=== PATIENT | female | born 1945 | race Caucasian/White ===

== ENCOUNTER 2019-05-25 11:12 | Emergency (ER) | payer MEDICARE, SELFPAY ==
[2019-05-25 11:13] VITALS: BP 159/96; PULSE 89; RESP 17; TEMP 36.6; O2SAT 96; BMI 20.2
[2019-05-25] MEDS: Diphth,Pertuss(Acell),Tet Vac 0.5 ML Vial IM (11:46)
[2019-05-25] MEDS: BACITRACIN 15 GM Tube 1 APPLIC TOPICAL (11:47)
--- NOTE | 2019-05-25 12:27 | ED.VISSUMM ---
- ER Visit Summary Date of Service: 05/25/19 Chief Complaint: Fall History of Present Illness: The patient is a 74 F who presents after a fall that occurred today. Patient states she was walking down steps when she slipped. Patient states she fell down approximately 8 steps. Patient denies any loss of consciousness. Patient admits to some pain over the left frontal area. Patient describes the pain is aching. Patient states the bleeding stopped it for several minutes. Patient denies any paresthesias or weakness. Patient denies any other injuries. Physical Examination: Vital signs are stable. Patient is afebrile. Patient is in no acute distress. Pupils are equal, round, and reactive to light bilaterally. Extraocular muscles are intact. Cranial nerves II through XII are intact. Strength is 5/5 bilateral knee upper and lower extremities. There are no sensory deficits noted. Heart was regular rate and rhythm. Lungs are clear and equal bilaterally. Abdomen is soft and nontender. Skin is warm and dry. There is a 3.5 cm full-thickness linear laceration over the left forehead. There is no active bleeding. There is no bony crepitance or step-off. Emergency Department Course and Treatment: Patient was given a tetanus booster. The wound was cleaned and irrigated with copious amounts of normal saline. The wound was closed with 1% plain lidocaine locally. Wound was closed with 2 simple interrupted #5-0 Vicryl sutures and 4 simple interrupted #5-0 nylon sutures under sterile technique. Patient tolerated the procedure well. Bacitracin dressing was applied. Patient was given head injury instructions. Patient was instructed to follow-up with her primary care physician in 5 to 7 days. Patient and her understood and were agreeable with plan. All questions were answered. Disposition: Discharge home Impression: Forehead laceration This note was generated with [employer]GO[employer] dictation software. It may contain incorrect words, spelling, and punctuation that were not noted in review of the chart prior to signing ED Disposition - Plan for ED Patient: Disposition: Home or Assisted Living Diagnosis: Forehead laceration Instructions: FALL, Mechanical, LACERATION, Face (Suture or Tape) Referrals: Maile Adam MD [Primary Care Provider] - 5 Days for suture removal
[2019-05-25 12:44] VITALS: PULSE 74; RESP 16; O2SAT 97
--- NOTE | 2019-05-25 12:45 | ED.RN ---
REVIEWED D/C INSTRUCTIONS, FOLLOW UP CARE, AND S/S THAT WOULD WARRANT A RETURN TO THE ED WITH PT. PT VERBALIZED AN UNDERSTANDING AND DENIES FURTHER QUESTIONS FOR THIS RN. PT SKIN P/W/D, RESP EVEN AND UNLABORED, PT A&O X 3, NO DISTRESS NOTED. PT AMBULATED OUT OF ED, GAIT STEADY.
== END 2019-05-25 12:46 | disposition home or self-care (01) ==
PROVIDERS: Emergency Provider Emergency Medicine; Family Provider Internal Medicine; PCP Internal Medicine
DX: S01.81XA Laceration without foreign body of other part of head, initial encounter (principal); Z23 Encounter for immunization; D64.9 Anemia, unspecified; W10.9XXA Fall (on) (from) unspecified stairs and steps, initial encounter; Y93.01 Activity, walking, marching and hiking; Y92.008 Other place in unspecified non-institutional (private) residence as the place of occurrence of the external cause; Y99.8 Other external cause status
CPT/HCPCS: 12013; 90715; 99283

== ENCOUNTER 2021-10-16 10:04 | Emergency (ER) | payer MEDICARE, SELFPAY ==
[2021-10-16 10:05] VITALS: BP 117/86; PULSE 87; RESP 16; TEMP 36.6; O2SAT 95; BMI 18.8
--- NOTE | 2021-10-16 11:05 | EKG12_ITS ---
Test Reason : EDEMA Blood Pressure : / mmHG Vent. Rate : 087 BPM Atrial Rate : 087 BPM P-R Int : 168 ms QRS Dur : 164 ms QT Int : 426 ms P-R-T Axes : 050 -46 121 degrees QTc Int : 512 ms Normal sinus rhythm Left axis deviation Left bundle branch block Abnormal ECG Confirmed by PATT STANTON, KAREEM ([id number]), publication editor EDMUND YU ([id number]) on 10/19/2021 11:53:39 AM Referred By: KACIE Confirmed By:KAREEM BELTRE MD
--- NOTE | 2021-10-16 11:05 | VDLE_ITS ---
Reason For Study: Swelling RIGHT LEFT GSV is normal. GSV is normal. CFV is compressible, spontaneous, competent CFV is compressible, spontaneous, competent, and demonstrates pulsatile venous flow. and demonstrates pulsatile venous flow. FV is compressible, spontaneous, competent FV is compressible, spontaneous, competent and demonstrates pulsatile venous flow. and demonstrates pulsatile venous flow. POP V is compressible, spontaneous, competent POP V is compressible, spontaneous, competent and demonstrates pulsatile venous flow. and demonstrates pulsatile venous flow. T/P Trunk is compressible. T/P Trunk is compressible. PTV is compressible. PTV is compressible. RT PerV is compressible. LT PerV is compressible. Procedure This is a venous duplex using B-mode, color flow and spectral Doppler. Exam performed portable in ED. A preliminary report was called and/or faxed to RN. VL/Venous Duplex US - [place] Extrem Interpretation Summary No evidence for acute deep venous thrombosis bilateral lower extremities with p atent and compressible bilateral great saphenous veins. Pulsitile venous flow noted bilat erally consistent with proximal venous hypertension or obstruction--clinical correlation would be appropriate Ordering Physician: Stephon Hua Referring Physician: Maile Adam M.D. Performed By: Jolly Lewis RVT
--- NOTE | 2021-10-16 11:05 | RAD_ITS ---
STUDY: X-RAY CHEST REASON FOR EXAM: Female, 76 years old. CHF TECHNIQUE: PA and lateral views of the chest. COMPARISON: Comparison is made with prior study dated 02/13/2017. FINDINGS: Small bilateral pleural effusions left greater than right with the left basilar atelectasis. There is no demonstrated pleural abnormality. Normal size heart. Normal mediastinum and kourtney. Normal visualized pulmonary arteries. There is atherosclerotic tortuosity of the aortic arch and descending thoracic aorta. Normal visualized thoracic spine. Normal visualized ribs, clavicles, and shoulders. There is no demonstrated abnormality of the visualized soft tissue structures of the upper abdomen. RAD/Chest PA and Lateral IMPRESSION: Small bilateral pleural effusions left greater than right with left basilar atelectasis. Electronically Signed: Ty Mccabe MD at 12:31 EST ,
--- NOTE | 2021-10-16 11:07 | ED.VIS.LOWEX ---
HPI History of Present Illness Chief Complaint: Edema Informant: patient Narrative Narrative: Patient presents with bilateral lower extremity edema. She thinks is been going on 3 or 4 days. However she has some slight cracking/abrasions of the skin that look a little older. She did have a slip and fall about 4 days ago but does not think she hurt the legs. She did hit her head but no loss of consciousness. She has never had this before. She cannot think of any positional changes. No travel. She has no chest pain shortness of breath. Does not think she has gained weight. Has not slept or been in any abnormal positions. No new clothing. 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 However she is not on meds now. Certainly this could be due to pernicious anemia. Nothing seems to make this better or worse but she really has not tried anything. [facility] Medical History (Updated 10/16/21 @ 14:[address] Stephon Hua MD) Iron deficiency anemia Medical History no medical history Home Medications ferrous sulfate [Iron (ferrous sulfate)] 325 mg PO DAILY 11/15/13 [History Last Taken 02/13/17] cyanocobalamin (vitamin B-12) 1,500 mcg PO DAILY@0800 #1 tablet 02/14/17 [Rx Last Taken Unknown] furosemide [Lasix] 20 mg PO DAILY #14 tab 10/16/21 [Rx Last Taken Unknown] Allergy/AdvReac Type Severity Reaction Status Date / Time No Known Allergies Allergy Verified 10/16/21 10:07 Family History (Updated 10/16/21 @ 13:[address] Sia Smith MD) Mother Diabetes Surgical History H/O tubal ligation Social History Smoking Status: Never smoker ROS ROS ED Constitutional Constitutional ED: Denies chills or fever(s) Eyes Eyes: Denies blurry vision ENT ENT ED: Denies rhinorrhea or sore throat Cardiovascular Cardiovascular: Denies chest pain, palpitations or racing heartbeat Respiratory/Chest Respiratory/Chest: Denies cough, dyspnea or dyspnea on exertion Gastrointestinal Gastrointestinal: Denies abdominal pain, nausea or vomiting Genitourinary Genitourinary ED: Denies dysuria Musculoskeletal Musculoskeletal: Reports other Details: Swelling bilateral lower extremities see history of present illness. ; Denies arthralgias, myalgias or neck pain Integumentary Denies rash Neurologic Neurologic: Denies headache(s), paresthesias or weakness Endocrine Endocrinology: Denies polydipsia or polyuria Hematologic/Lymphatic Hematologic/Lymphatic: Denies easy bruising Allergic/Immunologic Allergic/Immunologic ED: Denies mouth swelling or urticaria EXAM Physical Exam Const Vital Signs: 10/16/21 10:05 10/16/21 10:58 10/16/21 11:16 Temperature 97.8 F Temperature Source Temporal Pulse Rate 87 Respiratory Rate 16 16 Respiratory Effort Normal Non-Labored Blood Pressure 117/86 H Blood Pressure Mean 96 Pulse Ox 95 Oxygen Delivery Method Room Air 10/16/21 13:06 Temperature Temperature Source Pulse Rate 90 Respiratory Rate 18 Respiratory Effort Blood Pressure 127/87 H Blood Pressure Mean 100 Pulse Ox 96 Oxygen Delivery Method Room Air Positive well nourished and well developed General Appearance ED: well developed HEENT Reports moist mucous membranes normocephalic and atraumatic Chest Wall inspection of chest normal Resp normal respiratory effort, no retractions and clear to auscultation bilaterally Auscultation: Negative for rales, rhonchi or wheezes Cardio regular rate and regular rhythm GI non-tender, non-distended and no masses Palpation: soft Back/Spine no CVA tenderness Extremity Extremity Narrative: Patient does have some edema mostly from the mid upper calf down on both sides. There is slight pitting. No edema above this. No erythema warmth or lesions. There are some excoriations. Neuro oriented x3 Sensorium / Orientation: alert Psych mental status grossly normal Skin Rashes: no rashes MDM MDM MDM Narrative Medical decision making narrative: Patient chest x-ray shows very small effusions. Cardiac size is read as normal. CBC shows elevated hemoglobin. Electrolytes show no marked abnormalities. Glucose does have minimal elevation at 125. Total bili is minimally elevated at 1.3. Troponin is negative but beta natruretic peptide is elevated at over 2000. However, the patient's not coughing or short of breath at all. She has a small amount of edema to both lower extremities. I discussed the case with Dr. Frazier. They will follow-up. Patient will likely need outpatient echo and may be further evaluations. However, she is clinically stable here. Her saturations are normal even with ambulation. I will get her started on a very low dose of Lasix. Lab Data Attestation: I reviewed the patient's lab results. Labs: Laboratory Results - last 24 hr 10/16/21 10/16/21 10/16/21 11:23 11:23 11:23 WBC 6.8 RBC 5.39 Hgb 15.7 H Hct 47.7 H MCV 88.5 MCH 29.1 MCHC 32.9 RDW Std Deviation 46.4 H RDW Coeff of Esme 14.4 Plt Count 167 MPV 10.2 Immature Gran % (Auto) 0.300 Neut % (Auto) 75.4 H Lymph % (Auto) 14.8 L Reynolds % (Auto) 7.6 Eos % (Auto) 1.3 Baso % (Auto) 0.6 Absolute Neuts (auto) 5.1 Absolute Lymphs (auto) 1.00 Nucleated RBC % 0 Sodium 145 Potassium 3.8 Chloride 111 H Carbon Dioxide 29.0 Anion Gap 5 BUN 19 H Creatinine 0.69 Estim Creat Clear Calc 41.13 Est GFR (MDRD) Af Amer 106 Est GFR (MDRD) Non-Af 88 BUN/Creatinine Ratio 27.5 H Glucose 125 H Calcium 9.1 Total Bilirubin 1.30 H AST 26 ALT 29 Alkaline Phosphatase 64 Troponin I High Sens 26 B-Natriuretic Peptide 2361.4 H Total Protein 6.0 L Albumin 3.5 Globulin 2.5 Albumin/Globulin Ratio 1.4 Radiography Diagnostic Testing: Clinical Impression(s) from Imaging Studies Chest X-Ray 10/16/21 11:05 IMPRESSION: Small bilateral pleural effusions left greater than right with left basilar atelectasis. Electronically Signed: Ty Mccabe MD at 12:31 EST , Venous Doppler Study 10/16/21 11:05 Interpretation Summary No evidence for acute deep venous thrombosis bilateral lower extremities with patent and compressible bilateral great saphenous veins. Pulsitile venous flow noted bilaterally consistent with proximal venous hypertension or obstruction--clinical correlation would be appropriate Ordering Physician: Stephon Hua Referring Physician: Maile Adam M.D. Performed By: Jolly Lewis RVT Initial EKG: Comments: EKG done for edema read by me shows left bundle branch block but no sign of acute ST elevation depression. No ventricular ectopy. OK interval is normal. QRS duration and QTc long. Discharge Plan Triage Chief Complaint: Edema ED Provider: Stephon Hua Dx/Rx/DC Orders Clinical Impression: Edema of both legs, Elevated brain natriuretic peptide (BNP) level Instructions: ED Peripheral Edema, Bilateral Prescriptions: New furosemide [Lasix] 20 mg tablet 20 mg PO DAILY Qty: 14 RF: 0 No Action ferrous sulfate [Iron (ferrous sulfate)] 325 MG tablet 325 mg PO DAILY RF: 0 cyanocobalamin (vitamin B-12) 500 MCG tablet 1,500 mcg PO DAILY@0800 Qty: 1 RF: 0 Primary Care Provider: Andrea Frazier Referrals: Andrea Frazier MD [Primary Care Provider] - As soon as possible Disposition Disposition: Home, Self Care Discharge Date/Time: 10/16/21 14:19
[2021-10-16 11:16] VITALS: RESP 16
[2021-10-16 11:32] LABS: Absolute Neutrophil Count 5.1 X10^3/uL (2.0-7.7); Basophil# 0.04 X10^3/uL; Basophil% 0.6 % (0-1); Eosinophil# 0.09 X10^3/uL; Eosinophils% 1.3 % (0-5); Hematocrit 47.7 % (37-47); Hemoglobin 15.7 g/dL (12.0-15.0); Lymphocyte % 14.8 % (19-41); Mean Corp Hgb Conc 32.9 g/dL (32-36); Mean Corpuscular Hgb 29.1 pg (27.0-32.0); Mean Corpuscular Volume 88.5 fL (81-99); Mean Platelet Vol. 10.2 fl (6.2-12.0); Monocyte# 0.51 X10^3/uL; Monocyte% 7.6 % (0-10); NRBC Flagged by Analyzer 0 % (0-5); Neutrophil # 5.09 X10^3/uL (2.7-7.7); Neutrophil % 75.4 % (47-70); Platelet Count 167 K/mm3 (150-450); RBC Distribution Width CV 14.4 % (11.6-14.6); RBC Distribution Width SD 46.4 fl (35.1-43.9); Red Blood Count 5.39 M/mm3 (4.2-5.4); White Blood Count 6.8 K/mm3 (4.4-11.0)
[2021-10-16 11:50] LABS: ALB/GLOB Ratio 1.4 RATIO (0.9-2.4); AST(SGOT) 26 U/L (15-37); Alanine Aminotransfer ALT/SGPT 29 U/L (13-56); Albumin, Serum 3.5 g/dL (3.2-5.0); Alkaline Phosphatase 64 U/L (45-117); Anion Gap 5 (5-15); BUN 19 mg/dL (7-18); BUN/Creat Ratio 27.5 RATIO (10-20); Calcium,Total 9.1 mg/dL (8.5-10.1); Chloride 111 mmol/L (98-107); Creatinine, Serum 0.69 mg/dL (0.55-1.02); EST Glomerular Filtration Rate 88 mL/min (>60); Est Glom Filt Rate - Afr Amer 106 mL/min (>60); Estimated Creatinine Clearance 41.13 ml/min; Globulin 2.5 g/dL (2.2-4.2); Glucose 125 mg/dL (74-106); Potassium 3.8 mmol/L (3.5-5.1); Sodium Level 145 mmol/L (136-145); Troponin-I HS 26 pg/mL (3.0-54.0)
[2021-10-16 11:56] LABS: BNP,B-Type NATRIURETIC PEPTIDE 2361.4 pg/mL (0-100)
[2021-10-16 13:05] VITALS: O2SAT 94
[2021-10-16 13:06] VITALS: BP 127/87; PULSE 90; RESP 18; O2SAT 96
== END 2021-10-16 14:19 | disposition home or self-care (01) ==
PROVIDERS: Emergency Provider Emergency Medicine; PCP Internal Medicine; Visit Provider Emergency Medicine
DX: R60.0 Localized edema (principal); D50.9 Iron deficiency anemia, unspecified; I44.7 Left bundle-branch block, unspecified; R79.89 Other specified abnormal findings of blood chemistry
CPT/HCPCS: 71046; 80053; 83880; 84484; 85025; 93005; 93970; 99282; A4216

== ENCOUNTER 2021-12-25 10:09 | Inpatient (IN) | payer MEDICARE, SELFPAY ==
[2021-12-25] VITALS (12 sets, daily range): BP systolic 102–120; BP diastolic 81–87; PULSE 84–93; RESP 12–22; TEMP 36.2–36.7; O2SAT 93–99; BMI 21.2; BMI 20.5
--- NOTE | 2021-12-25 10:55 | EKG12_ITS ---
Test Reason : SOB Blood Pressure : / mmHG Vent. Rate : 090 BPM Atrial Rate : 090 BPM P-R Int : 176 ms QRS Dur : 152 ms QT Int : 442 ms P-R-T Axes : 054 -51 118 degrees QTc Int : 540 ms Normal sinus rhythm Left axis deviation Left bundle branch block Abnormal ECG Confirmed by PATT STANTON, KAREEM ([id number]), newspaper or periodical editor EDMUND YU ([id number]) on 12/28/2021 1:52:41 PM Referred By: DANIELLE Confirmed By:KAREEM BELTRE MD
--- NOTE | 2021-12-25 10:55 | ED.VIS.DYS ---
HPI History of Present Illness Chief Complaint: Shortness of Breath Narrative Narrative: 76-year-old female presenting with dyspnea on exertion. She states she normally can walk freely but over the last 4 months or so she has been having more shortness of breath. She admits to lower extremity edema. She does not admit to orthopnea. She denies chest pain. She is a non-smoker. She states she has no significant medical problems but she is on a water pill for her lower extremity edema. She denies a history of congestive heart failure. No history of COPD or asthma. Patient eating and drinking normally. She is making normal urine and stool. She denies fever, chills, body aches. [facility] Medical History Iron deficiency anemia Home Medications ferrous sulfate [Iron (ferrous sulfate)] 325 mg PO DAILY 11/15/13 [History Last Taken 12/25/21] cyanocobalamin (vitamin B-12) 1,500 mcg PO DAILY@0800 #1 tablet 02/14/17 [Rx Last Taken 12/25/21] furosemide [Lasix] 20 mg PO DAILY #14 tab 10/16/21 [Rx Last Taken 12/24/21] Allergy/AdvReac Type Severity Reaction Status Date / Time No Known Allergies Allergy Verified 12/25/21 10:11 Family History Mother Diabetes Surgical History H/O tubal ligation Social History Smoking Status: Never smoker ROS ROS ED Constitutional Constitutional ED: Denies chills or fever(s) Eyes Eyes: Denies blurry vision or diplopia ENT ENT ED: Denies rhinorrhea or sore throat Cardiovascular Cardiovascular: Denies chest pain or palpitations Respiratory/Chest Respiratory/Chest: Reports dyspnea and dyspnea on exertion; Denies cough Gastrointestinal Gastrointestinal: Denies abdominal pain, nausea or vomiting Genitourinary Genitourinary ED: Denies dysuria or hematuria Musculoskeletal Musculoskeletal: Denies arthralgias, back pain, myalgias or neck pain Integumentary Denies rash Neurologic Neurologic: Denies headache(s) or weakness Psychiatric Psychiatric: Denies anxiety or depression EXAM Physical Exam Const Vital Signs: 12/25/21 10:10 12/25/21 10:43 12/25/21 10:56 Temperature 97.1 F L Temperature Source Temporal Pulse Rate 89 Respiratory Rate 18 Respiratory Effort Short of Breath Labored Respiratory Depth Normal Respiratory Pattern Tachypnea Blood Pressure 110/84 H Blood Pressure Mean 92 Pulse Ox 99 Oxygen Delivery Method Room Air Room Air Room Air 12/25/21 11:18 12/25/21 12:51 Temperature 97.1 F L Temperature Source Temporal Pulse Rate 93 85 Respiratory Rate 22 H 13 Respiratory Effort Respiratory Depth Respiratory Pattern Blood Pressure 114/87 H 119/85 H Blood Pressure Mean 96 96 Pulse Ox 97 95 Oxygen Delivery Method Room Air Positive well nourished General Appearance ED: NAD; Negative for pallor HEENT Reports moist mucous membranes atraumatic Eyes PERRL and EOMs intact bilaterally Neck no lymphadenopathy and supple Resp normal respiratory effort Auscultation: diminished lung sounds left lower; Negative for rales or rhonchi Cardio regular rate and regular rhythm Extremity General Extremety ED: Yes edema General Extremity: edema Neuro oriented x3, CN's II-XII intact bilaterally and no sensory deficits noted Sensorium / Orientation: alert Motor Exam: strength 5/5 throughout Psych mental status grossly normal Thought Process: normal thought process Skin General Skin Exam: Negative for jaundice or pallor Lesions: no lesions Rashes: no rashes MDM MDM MDM Narrative Medical decision making narrative: Patient presenting with dyspnea on exertion, lower extremity edema. Patient states he has no history of CHF however is documented in the computer as history of CHF. She states she has not had an echocardiogram yet. She is Lasix. She takes 20 mg p.o. daily. Patient states her symptoms are progressively getting worse. EKG obtained on arrival shows a sinus rhythm with ventricular rate of 90 bpm with left bundle branch block noted on my interpretation. Chest x-ray on my interpretation shows cardiomegaly and a left pleural effusion. Radiologist does agree. CBC shows a leukocytosis. Hemoglobin elevated at 16.9, platelets 173. Renal function and electrolytes are within normal limits. High-sensitivity troponin is 26. BNP elevated at 2900. Patient ambulated with pulse ox on room air and desats to 87% with ambulation. Patient is symptomatic. I obtained a D-dimer which is 3.28. CTA of the chest does not identify any PE or dissection but does identify left greater than right bilateral pleural effusions as well as cardiomegaly. Given patient is hypoxic with ambulation has acute exacerbation of CHF I think she is to be admitted the hospital. After discussion with her she states she has not had an echocardiogram yet. 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 I discussed with the hospitalist for admission. Patient given 40 mg of IV Lasix prior to transfer to the floor. Impression: 1. Dyspnea with exertion 2. Acute CHF exacerbation 3. Hypoxia with exertion 4. Bilateral pleural effusions 5. Cardiomegaly Lab Data Labs: Laboratory Results - last 24 hr 12/25/21 12/25/21 12/25/21 10:33 10:33 10:33 WBC 5.9 RBC 6.13 H Hgb 16.9 H Hct 53.2 H MCV 86.8 MCH 27.6 MCHC 31.8 L RDW Std Deviation 46.4 H RDW Coeff of Esme 15.0 H Plt Count 173 MPV 10.1 Immature Gran % (Auto) 0.300 Neut % (Auto) 66.7 Lymph % (Auto) 24.2 [place] % (Auto) 7.1 Eos % (Auto) 1.0 Baso % (Auto) 0.7 Absolute Neuts (auto) 4.0 Absolute Lymphs (auto) 1.43 Nucleated RBC % 0 D-Dimer Quant (PE/DVT) 3.28 H* Sodium 142 Potassium 3.8 Chloride 107 Carbon Dioxide 29.0 Anion Gap 6 BUN 20 H Creatinine 0.97 Estim Creat Clear Calc 46.19 Est GFR (MDRD) Af Amer 72 Est GFR (MDRD) Non-Af 59 L BUN/Creatinine Ratio 20.6 H Glucose 117 H Calcium 9.4 Troponin I High Sens 26 B-Natriuretic Peptide 12/25/21 10:33 WBC RBC Hgb Hct MCV MCH MCHC RDW Std Deviation RDW Coeff of Esme Plt Count MPV Immature Gran % (Auto) Neut % (Auto) Lymph % (Auto) [place] % (Auto) Eos % (Auto) Baso % (Auto) Absolute Neuts (auto) Absolute Lymphs (auto) Nucleated RBC % D-Dimer Quant (PE/DVT) Sodium Potassium Chloride Carbon Dioxide Anion Gap BUN Creatinine Estim Creat Clear Calc Est GFR (MDRD) Af Amer Est GFR (MDRD) Non-Af BUN/Creatinine Ratio Glucose Calcium Troponin I High Sens B-Natriuretic Peptide 2902.7 H Radiography Diagnostic Testing: Clinical Impression(s) from Imaging Studies Chest X-Ray 12/25/21 11:18 IMPRESSION: Small left pleural effusion with left basilar infiltration. Cardiomegaly. Electronically Signed: Ty Mccabe MD at 11:55 EDT , Chest CTA 12/25/21 11:40 IMPRESSION: Bilateral pleural effusions left greater than right with left basilar atelectasis and infiltrate. Moderate sized cardiomegaly. No evidence of pulmonary embolism. Electronically Signed: Ty Mccabe MD at 12:14 EDT , Discharge Plan Triage Chief Complaint: Shortness of Breath ED Provider: Sinan Elizalde Dx/Rx/DC Orders Prescriptions: No Action ferrous sulfate [Iron (ferrous sulfate)] 325 MG tablet 325 mg PO DAILY RF: 0 cyanocobalamin (vitamin B-12) 500 MCG tablet 1,500 mcg PO DAILY@0800 Qty: 1 RF: 0 furosemide [Lasix] 20 mg tablet 20 mg PO DAILY Qty: 14 RF: 0 Primary Care Provider: Andrea Frazier
[2021-12-25 11:04] LABS: Absolute Lymphocyte Count 1.43 X10^3/uL (0.83-4.51); Basophil# 0.04 X10^3/uL; Basophil% 0.7 % (0-1); Eosinophil# 0.06 X10^3/uL; Hematocrit 53.2 % (37-47); Hemoglobin 16.9 g/dL (12.0-15.0); Lymphocyte # 1.43 X10^3/ul (0.83-4.51); Lymphocyte % 24.2 % (19-41); Mean Corp Hgb Conc 31.8 g/dL (32-36); Mean Corpuscular Hgb 27.6 pg (27.0-32.0); Mean Corpuscular Volume 86.8 fL (81-99); Mean Platelet Vol. 10.1 fl (6.2-12.0); Monocyte# 0.42 X10^3/uL; Monocyte% 7.1 % (0-10); NRBC Flagged by Analyzer 0 % (0-5); Neutrophil # 3.95 X10^3/uL (2.7-7.7); Neutrophil % 66.7 % (47-70); Platelet Count 173 K/mm3 (150-450); RBC Distribution Width SD 46.4 fl (35.1-43.9); Red Blood Count 6.13 M/mm3 (4.2-5.4); White Blood Count 5.9 K/mm3 (4.4-11.0)
[2021-12-25 11:16] LABS: D-Dimer Quantitative (DVT/PE) 3.28 FEU/ug/m (0.27-0.49)
--- NOTE | 2021-12-25 11:18 | RAD_ITS ---
STUDY: X-RAY CHEST REASON FOR EXAM: Female, 76 years old. Chest pain TECHNIQUE: Single AP portable view of the chest. COMPARISON: Comparison is made with prior study of 10/16/2021. FINDINGS: EKG lead are seen. Left lower lobe infiltrate with a small left pleural effusion. There is no demonstrated pleural abnormality. There is moderate cardiac enlargement. Normal mediastinum and kourtney. Normal visualized pulmonary arteries. There is atherosclerotic tortuosity of the aortic arch and descending thoracic aorta. Normal visualized thoracic spine. Normal visualized ribs, clavicles, and shoulders. There is no demonstrated abnormality of the visualized soft tissue structures of the upper abdomen. RAD/Chest 1 View (Portable) IMPRESSION: Small left pleural effusion with left basilar infiltration. Cardiomegaly. Electronically Signed: Ty Mccabe MD at 11:55 EDT ,
[2021-12-25 11:21] LABS: Anion Gap 6 (5-15); BUN 20 mg/dL (7-18); BUN/Creat Ratio 20.6 RATIO (10-20); Calcium,Total 9.4 mg/dL (8.5-10.1); Chloride 107 mmol/L (98-107); Creatinine, Serum 0.97 mg/dL (0.55-1.02); EST Glomerular Filtration Rate 59 mL/min (>60); Est Glom Filt Rate - Afr Amer 72 mL/min (>60); Estimated Creatinine Clearance 46.19 ml/min; Glucose 117 mg/dL (74-106); Potassium 3.8 mmol/L (3.5-5.1); Sodium Level 142 mmol/L (136-145); Troponin-I HS (w/2H Reflex) 26 pg/mL (3.0-54.0)
--- NOTE | 2021-12-25 11:40 | CT_ITS ---
STUDY: CTA CHEST REASON FOR EXAM: Female, 76 years old. Dyspnea RADIATION DOSAGE (If Supplied By Facility): CTDIvol = ( 7.41 ) mGy, DLP = ( 147.22 ) mGycm TECHNIQUE: The examination was performed with the intravenous administration of IV 100mL Isovue-370. Post-processing of the angiographic images was performed, with multiplanar reformation and 3D reconstruction. Individualized dose optimization techniques were used for this CT. COMPARISON: Comparison is made with prior chest radiograph done earlier today. FINDINGS: There is diffuse increased markings in the subcutaneous fat overlying the thorax and both breasts suggestive of a possible fluid overload. Normal enhancement of the main pulmonary artery and right and left pulmonary arteries. Normal enhancement of the bilateral peripheral pulmonary arteries. There is no demonstrated pulmonary embolism. Normal thoracic aorta and visualized great vessels. There is no demonstrated aortic dissection. There is cardiomegaly. There are calcifications of the coronary arteries. Normal mediastinum. Normal hilar regions. Normal visualized trachea and bronchi. The lungs are well expanded. Bilateral pleural effusions left greater than right. Left basilar infiltrate. Increased markings are also seen in the posterior aspect of the lingular segment of the left upper lobe Normal pleura. Normal chest wall structures. There are degenerative changes of thoracic spine. Normal visualized upper abdomen. CT/CTA Chest W/WO Contrast IMPRESSION: Bilateral pleural effusions left greater than right with left basilar atelectasis and infiltrate. Moderate sized cardiomegaly. No evidence of pulmonary embolism. Electronically Signed: Ty Mccabe MD at 12:14 EDT ,
[2021-12-25 12:59] LABS: Reflex Troponin-HS? (from REC) Y
--- NOTE | 2021-12-25 13:52 | HP.PCM.HOS_ITS ---
HPI - General General Date of Admission: 12/25/21 HPI Narrative MELLISA MARIE, is a 76 F who presents to the hospital with continued and ongoing shortness of breath and dyspnea on exertion with lower extremity edema. She says that this been going on for several months and was recently in the hospital in September and was started on Lasix and told to follow-up with her PCP to obtain an echocardiogram. It does not appear that she did any of this that she has not had an echo per her estimation. Here in the ER her BNP was higher than it was in September at 2902.7. With ambulation she did desat down to 87% needing oxygen for recovery. She is denying any chest pain and was given a dose of Lasix here in the ER. Of note she also did have an elevated D-dimer to over 3 so CTA of the chest was done which did show a left greater than right pleural effusion but no PE. Unfortunately pleural effusion does not appear large enough to be tapped. Family has also noted increasing signs of memory lapses and dementia. They said that is been going on for several years but it really became noticeable in July. FORMERLY [facility], [facility]–1983 Medical History Iron deficiency anemia Home Medications ferrous sulfate [Iron (ferrous sulfate)] 325 mg PO DAILY 11/15/13 [History Last Taken 12/25/21] cyanocobalamin (vitamin B-12) 1,500 mcg PO DAILY@0800 #1 tablet 02/14/17 [Rx Last Taken 12/25/21] furosemide [Lasix] 20 mg PO DAILY #14 tab 10/16/21 [Rx Last Taken 12/24/21] Allergy/AdvReac Type Severity Reaction Status Date / Time No Known Allergies Allergy Verified 12/25/21 10:11 Family History Mother Diabetes Surgical History H/O tubal ligation Social History Smoking Status: Never smoker ROS Constitutional Constitutional: Denies chills, fatigue, fever(s) or malaise Eyes Eyes: Denies blurry vision ENT HEENT: Denies headache(s) or nasal discharge Cardiovascular Cardiovascular: Reports dyspnea on exertion and edema; Denies chest pain or syncope Respiratory/Chest Respiratory/Chest: Reports shortness of breath at rest; Denies cough or shortness of breath with exertion Gastrointestinal Gastrointestinal: Denies constipation, diarrhea, nausea or vomiting Genitourinary Genitourinary: Denies dysuria Neurologic Neurologic: Denies focal weakness, numbness or tremor(s) Psychiatric Psychiatric: Denies anxiety or depression Vital Signs Vital Signs Vital Signs: 12/25/21 10:10 12/25/21 10:43 12/25/21 10:56 Temperature 97.1 F L Temperature Source Temporal Pulse Rate 89 Respiratory Rate 18 Respiratory Effort Short of Breath Labored Respiratory Depth Normal Respiratory Pattern Tachypnea Blood Pressure 110/84 H Blood Pressure Mean 92 Pulse Ox 99 Oxygen Delivery Method Room Air Room Air Room Air 12/25/21 11:18 12/25/21 12:51 Temperature 97.1 F L Temperature Source Temporal Pulse Rate 93 85 Respiratory Rate 22 H 13 Respiratory Effort Respiratory Depth Respiratory Pattern Blood Pressure 114/87 H 119/85 H Blood Pressure Mean 96 96 Pulse Ox 97 95 Oxygen Delivery Method Room Air Weight Weight: 131 lb 6.328 oz Body Mass Index (BMI) 21.2 Physical Exam Const alert, oriented x3 and no apparent distress General Appearance: cooperative HEENT normocephalic Mouth: dry mucous membranes Eyes PERRL, EOMs intact bilaterally and conjunctivae normal Neck supple and no JVD Resp normal respiratory effort, no retractions and no use of accessory muscles Auscultation: diminished lung sounds; Negative for crackles, rales, rhonchi or wheezes Cardio regular rate, regular rhythm, S1 normal heart sound, S2 normal heart sound and no murmurs GI soft to palpation, non-tender and non-distended; Negative for hepatosplenomegaly Extremity General Extremity: edema; Negative for clubbing or cyanosis Skin no rashes or lesions noted Neuro no focal motor deficits and no sensory deficits noted Psych affect normal Appearance: appropriate Results Lab / Micro Data Result Diagrams: 12/25/21 10:33 12/25/21 10:33 Labs: Laboratory Results - last 24 hr 12/25/21 10:33: WBC 5.9, RBC 6.13 H, Hgb 16.9 H, Hct 53.2 H, MCV 86.8, MCH 27.6, MCHC 31.8 L, RDW Std Deviation 46.4 H, RDW Coeff of Esme 15.0 H, Plt Count 173, MPV 10.1, Immature Gran % (Auto) 0.300, Neut % (Auto) 66.7, Lymph % (Auto) 24.2, Saline % (Auto) 7.1, Eos % (Auto) 1.0, Baso % (Auto) 0.7, Absolute Neuts (auto) 4.0, Absolute Lymphs (auto) 1.43, Nucleated RBC % 0 12/25/21 10:33: D-Dimer Quant (PE/DVT) 3.28 H* 12/25/21 10:33: Sodium 142, Potassium 3.8, Chloride 107, Carbon Dioxide 29.0, Anion Gap 6, BUN 20 H, Creatinine 0.97, Estim Creat Clear Calc 46.19, Est GFR (MDRD) Af Amer 72, Est GFR (MDRD) Non-Af 59 L, BUN/Creatinine Ratio 20.6 H, Glucose 117 H, Calcium 9.4, Troponin I High Sens 26 12/25/21 10:33: B-Natriuretic Peptide 2902.7 H Radiology Impression Chest X-Ray 12/25/21 11:18 IMPRESSION: Small left pleural effusion with left basilar infiltration. Cardiomegaly. Electronically Signed: Ty Mccabe MD at 11:55 EDT , Chest CTA 12/25/21 11:40 IMPRESSION: Bilateral pleural effusions left greater than right with left basilar atelectasis and infiltrate. Moderate sized cardiomegaly. No evidence of pulmonary embolism. Electronically Signed: Ty Mccabe MD at 12:14 EDT , Assessment & Plan Assessment/Plan (1) CHF (congestive heart failure): (2) Acute respiratory failure with hypoxia: PLAN: 1. Acute hypoxic respiratory failure secondary to a CHF exacerbation of unknown type ? She was supposed to have an echo as an outpatient and the previous ED physician did coordinate with the primary care's office however it does not appear that she followed up ? Did desaturate down to 87% with ambulation ? Continue with Lasix twice daily ? We will obtain an echo ? Her left pleural effusion at this time is not large enough to drain ? Troponin is unremarkable and equal to the troponin she had in September ? CTA of the chest is unremarkable for PE 2. Dementia ? Undiagnosed however family has noticed worsening signs since July ? Recommend outpatient evaluation by PCP DVT: Fredo Charges/Coding Visit Charges Inpatient E&M: 69979 Init Hosp L2
[2021-12-25] MEDS: Furosemide 40 MG/4 ML Vial IV ×2 (13:57→17:57)
[2021-12-25 14:04] LABS: Troponin-I HS 22 pg/mL (3.0-54.0)
--- NOTE | 2021-12-25 14:40 | ECHOD_ITS ---
Reason For Study: CHF Procedure This was a 2D Doppler, Color Flow transthoracic echocardiogram. Exam performed portable in patient room. Left Ventricle Severely dilated left ventricle. The estimated ejection fraction is 13 %. There is severe global hypokinesis of the left ventricle. Right Ventricle Normal RV size. Normal systolic function. Atria The left atrium is moderately enlarged. Normal right atrium. Mitral Valve Mitral valve doming/Hockey Sticking. Moderate (2+) eccentric mitral valve insufficiency. Tricuspid Valve Normal tricuspid valve. Mild (1+) tricuspid valve insufficiency. Pulmonary artery systolic pressure is 39 mmHg. Aortic Valve Trisinus/trileaflet aortic valve. Mild (1+) eccentric aortic valve insufficiency. Great Vessels Normal aortic root. The pulmonary artery is normal size. and does not collapse. Pericardium/Pleural Trivial pericardial effusion. Moderate size left pleural effusion. MMode/2D Measurements & Calculations LVIDd: 7.6 cm IVSd: 0.93 cm Ao root diam: 3.1 cm LVIDs: 7.2 cm LVPWd: 0.85 cm LA dimension: 4.4 cm RVDd: 4.1 cm FS: 5.1 % LAV(MOD-bp): 90.5 ml LVAd ap4: 40.0 cm2 SV(MOD-sp4): 11.8 ml LAV(MOD-bp) Indexed: 54.9 ml/m2 LVLd ap4: 8.1 cm LAV(MOD-sp2): 78.5 ml EDV(MOD-sp4): 162.9 ml LAV(MOD-sp4): 90.8 ml EDV(sp4-el): 167.8 ml LVAs ap4: 38.0 cm2 LVLs ap4: 7.9 cm ESV(MOD-sp4): 151.0 ml ESV(sp4-el): 154.1 ml EF(MOD-sp4): 7.3 % EF(sp4-el): 8.2 % SV(sp4-el): 13.7 ml LA A4 area: 25.9 cm2 RA A4 area: 18.1 cm2 Doppler Measurements & Calculations MV E max lucho: 88.3 cm/sec Ao V2 max: 54.5 cm/sec AI max lucho: 268.5 cm/sec MV A max lucho: 87.6 cm/sec Ao max P.2 mmHg AI max P.8 mmHg MV E/A: 1.0 AI dec slope: 181.4 cm/sec2 AI P1/2t: 433.5 msec LV V1 max: 40.7 cm/sec MR max lucho: 440.1 cm/sec PA V2 max: 79.9 cm/sec LV V1 max P.66 mmHg MR max P.5 mmHg MR mean lucho: 297.1 cm/sec MR mean P.8 mmHg MR VTI: 172.0 cm TR max lucho: 293.3 cm/sec TR max P.6 mmHg ECHO/Echo Complete Interpretation Summary Severely dilated left ventricle. The estimated ejection fraction is 13 %. There is severe global hypokinesis of the left ventricle. The left atrium is moderately enlarged. Moderate (2+) eccentric mitral valve insufficiency. Pulmonary artery systolic pressure is 39 mmHg. Mild (1+) eccentric aortic valve insufficiency. Compared to previous study, the left ventricular systolic function has worsened .. Ordering Physician: José Miguel Dougherty Referring Physician: Andrea Frazier M.D. Performed By: Gunner Mtz RCS
--- NOTE | 2021-12-25 15:45 | CASEMGMT ---
RN ESTELA RPG DEVELOPER ESTELA to room to meet with patient for initial transition planning/care coordination assessment. TRUNG PALMER introduced self and role at [facility]. Pt voices understanding and consents to assessment at this time. Pt resting in bed in no distress at this time. Diya Hernandez, @ bedside. Pt agreeable to assessment w/her present. Pt is A/O at this time and answers all questions appropriately. Care providers, pharmacy, and demographics verified/updated at this time. PCP: Dr Frazeir Specialists: None Preferred Pharmacy: [facility] Insurance: [facility] Prescription Benefit: Yes Living Will/HPOA: States does not have LW or HCPOA . Interested in completing while @ [facility]. Pt and grand-dtr made aware SW may not be available to meet w/her prior to discharge. She was given Social Service rac card with number to call if chooses in the future to utilize [facility] social work for advanced directive completion, if SW unable to complete these w/her during hospitalization. She voices understanding. LNOK: Daughter, Dariana. Living Arrangements: Lives in 2-story home. [employer]. 2 steps to enter. GranddaughterHolli, lives w/her. Pt states she is independent w/ADL's and IADL's. Pt states she manages her own medications and appts and all home tasks. Transportation: Pt states drives self and states no transportation concerns at this time. DME: Denies using any DME and denies needs. Pt states, if she qualifies for O2 @ discharge, she monet not have a preference of DME co. Pt was provided with list of DME providers. HHC/SNF: No hx of either. Denies need for HHC. No needs identified. Pt wishes to return home and states has no concerns with going home at time of discharge. CM to follow for home oxygen needs and any further discharge planning/needs. Pt voices no further concerns/needs at this time. Advised pt to ask for CM if any further questions/concerns/needs arise. Voices understanding. Pt states she has not been told she has CHF in the past and has not been educated on same. TRUNG PALMER provided some education at this time, and TRUNG Grayson, states she has also begun CHF education w/pt. PLAN: Home w/family support and discharge plans in place. Pt does not have home O2. If she qualifies for O2 @ discharge, she is agreeable to [employer]. Nursing to provide education on CHF. Devon MIGUELN RN CM
[2021-12-25] MEDS: Carvedilol 3.125 MG TABLET PO (21:03)
[2021-12-26] VITALS (12 sets, daily range): BP systolic 103–113; BP diastolic 67–83; PULSE 78–87; RESP 14–20; TEMP 36.4–36.7; O2SAT 84–99
[2021-12-26 06:06] LABS: Absolute Lymphocyte Count 1.54 X10^3/uL (0.83-4.51); Basophil# 0.06 X10^3/uL; Basophil% 1.2 % (0-1); Eosinophil# 0.14 X10^3/uL; Eosinophils% 2.7 % (0-5); Hematocrit 49.4 % (37-47); Lymphocyte # 1.54 X10^3/ul (0.83-4.51); Lymphocyte % 29.7 % (19-41); Mean Corp Hgb Conc 32.4 g/dL (32-36); Mean Corpuscular Hgb 27.4 pg (27.0-32.0); Mean Corpuscular Volume 84.4 fL (81-99); Mean Platelet Vol. 10.7 fl (6.2-12.0); Monocyte# 0.46 X10^3/uL; Monocyte% 8.9 % (0-10); NRBC Flagged by Analyzer 0 % (0-5); Neutrophil # 2.98 X10^3/uL (2.7-7.7); Neutrophil % 57.3 % (47-70); Platelet Count 153 K/mm3 (150-450); RBC Distribution Width CV 14.6 % (11.6-14.6); RBC Distribution Width SD 44.2 fl (35.1-43.9); Red Blood Count 5.85 M/mm3 (4.2-5.4); White Blood Count 5.2 K/mm3 (4.4-11.0)
[2021-12-26 06:53] LABS: Anion Gap 7 (5-15); BUN 20 mg/dL (7-18); Calcium,Total 8.6 mg/dL (8.5-10.1); Chloride 105 mmol/L (98-107); Creatinine, Serum 0.77 mg/dL (0.55-1.02); EST Glomerular Filtration Rate 78 mL/min (>60); Est Glom Filt Rate - Afr Amer 94 mL/min (>60); Estimated Creatinine Clearance 42.08 ml/min; Glucose 107 mg/dL (74-106); Potassium 3.4 mmol/L (3.5-5.1); Sodium Level 141 mmol/L (136-145)
[2021-12-26] MEDS: Enoxaparin 40 MG/0.4 ML Syringe SC (09:22)
[2021-12-26] MEDS: Cyanocobalamin 500 MCG Tablet 1500 MCG PO (09:22)
[2021-12-26] MEDS: Furosemide 40 MG/4 ML Vial IV (09:22)
[2021-12-26] MEDS: 0.9% Saline Lock 10 ML Syringe IV (09:23)
--- NOTE | 2021-12-26 09:27 | PN.HOSP_ITS ---
Subjective Subjective Doing well, feels little bit better than yesterday. She is down over 2 L with the Lasix Objective Data Objective Data Vital Signs: Vital Signs Temp Pulse Resp BP Pulse Ox 97.7 F L 87 18 103/69 97 12/26/21 09:15 12/26/21 09:15 12/26/21 09:15 12/26/21 09:15 12/26/21 09:15 Oxygen Flow Rate (L/min) 2 Oxygen Delivery Method Room Air Weight: 122 lb 12.76 oz Body Mass Index (BMI) 20.5 Intake & Output: Intake and Output for Last 24 Hours 12/25/21 12/26/21 12/27/21 03:59 03:59 03:59 Intake Total 600 / 600 Output Total 2250 / 2250 400 / 400 Balance -1650 / -1650 -400 / -400 Lab / Micro Data Result Diagrams: 12/26/21 05:06 12/26/21 05:06 Labs: Laboratory Results - last 24 hr 12/25/21 10:33: WBC 5.9, RBC 6.13 H, Hgb 16.9 H, Hct 53.2 H, MCV 86.8, MCH 27.6, MCHC 31.8 L, RDW Std Deviation 46.4 H, RDW Coeff of Esme 15.0 H, Plt Count 173, MPV 10.1, Immature Gran % (Auto) 0.300, Neut % (Auto) 66.7, Lymph % (Auto) 24.2, [place] % (Auto) 7.1, Eos % (Auto) 1.0, Baso % (Auto) 0.7, Absolute Neuts (auto) 4.0, Absolute Lymphs (auto) 1.43, Nucleated RBC % 0 12/25/21 10:33: D-Dimer Quant (PE/DVT) 3.28 H* 12/25/21 10:33: Sodium 142, Potassium 3.8, Chloride 107, Carbon Dioxide 29.0, Anion Gap 6, BUN 20 H, Creatinine 0.97, Estim Creat Clear Calc 46.19, Est GFR (MDRD) Af Amer 72, Est GFR (MDRD) Non-Af 59 L, BUN/Creatinine Ratio 20.6 H, Glucose 117 H, Calcium 9.4, Troponin I High Sens 26 12/25/21 10:33: B-Natriuretic Peptide 2902.7 H 12/25/21 13:40: Troponin I High Sens 22 12/26/21 05:06: WBC 5.2, RBC 5.85 H, Hgb 16.0 H, Hct 49.4 H, MCV 84.4, MCH 27.4, MCHC 32.4, RDW Std Deviation 44.2 H, RDW Coeff of Esme 14.6, Plt Count 153, MPV 10.7, Immature Gran % (Auto) 0.200, Neut % (Auto) 57.3, Lymph % (Auto) 29.7, [place] % (Auto) 8.9, Eos % (Auto) 2.7, Baso % (Auto) 1.2 H, Absolute Neuts (auto) 3.0, Absolute Lymphs (auto) 1.54, Nucleated RBC % 0 12/26/21 05:06: Sodium 141, Potassium 3.4 L, Chloride 105, Carbon Dioxide 29.0, Anion Gap 7, BUN 20 H, Creatinine 0.77, Estim Creat Clear Calc 42.08, Est GFR (MDRD) Af Amer 94, Est GFR (MDRD) Non-Af 78, BUN/Creatinine Ratio 26.0 H, Glucose 107 H, Calcium 8.6 Radiography Diagnostic Testing: Radiology Impression Chest X-Ray 12/25/21 11:18 IMPRESSION: Small left pleural effusion with left basilar infiltration. Cardiomegaly. Electronically Signed: Ty Mccabe MD at 11:55 EDT , Chest CTA 12/25/21 11:40 IMPRESSION: Bilateral pleural effusions left greater than right with left basilar atelectasis and infiltrate. Moderate sized cardiomegaly. No evidence of pulmonary embolism. Electronically Signed: Ty Mccabe MD at 12:14 EDT , Echocardiogram 12/25/21 14:40 Interpretation Summary Severely dilated left ventricle. The estimated ejection fraction is 13 %. There is severe global hypokinesis of the left ventricle. The left atrium is moderately enlarged. Moderate (2+) eccentric mitral valve insufficiency. Pulmonary artery systolic pressure is 39 mmHg. Mild (1+) eccentric aortic valve insufficiency. Compared to previous study, the left ventricular systolic function has worsened.. _ Ordering Physician: José Miguel Dougherty Referring Physician: Andrea Frazier M.D. Performed By: Gunner Mtz RCS Physical Exam Const alert, oriented x3 and no apparent distress General Appearance: cooperative HEENT normocephalic Eyes PERRL, EOMs intact bilaterally and conjunctivae normal Neck supple and no JVD Resp normal respiratory effort, no retractions and no use of accessory muscles Auscultation: diminished lung sounds; Negative for crackles, rales, rhonchi or wheezes Cardio regular rate, regular rhythm, S1 normal heart sound, S2 normal heart sound and no murmurs GI soft to palpation, non-tender and non-distended; Negative for hepatosplenomegaly Extremity General Extremity: edema; Negative for clubbing or cyanosis Skin no rashes or lesions noted Neuro no focal motor deficits and no sensory deficits noted Psych affect normal Appearance: appropriate Assessment & Plan Assessment/Plan (1) CHF (congestive heart failure): (2) Acute respiratory failure with hypoxia: PLAN: 1. Acute hypoxic respiratory failure secondary to acute systolic CHF exacerbation ? She was supposed to have an echo as an outpatient and the previous ED physician did coordinate with the primary care's office however it does not appear that she followed up ? Did desaturate down to 87% with ambulation, and then had to be placed on oxygen overnight for an oxygen saturation of 84% ? Continue with Lasix twice daily ? Echo demonstrates an EF of 13%, will consult cardiology and place her on Coreg and lisinopril ? Her left pleural effusion at this time is not large enough to drain ? Troponin is unremarkable and equal to the troponin she had in September ? CTA of the chest is unremarkable for PE 2. Dementia ? Undiagnosed however family has noticed worsening signs since July ? Recommend outpatient evaluation by PCP DVT: Fredo Charges/Coding Visit Charges Inpatient E&M: 93348 Subs Hosp L2
[2021-12-26] MEDS: Potassium Chloride Oral Tablet 20 MEQ 40 MEQ PO (10:38)
[2021-12-26] MEDS: Carvedilol 3.125 MG TABLET PO ×2 (10:51→20:38)
[2021-12-26] MEDS: Lisinopril 5 MG Tablet PO (10:52)
--- NOTE | 2021-12-26 10:58 | PCM.CONS.C ---
Assessment & Plan Assessment/Plan (1) CHF (congestive heart failure): PLAN: She presents with shortness of breath and is noted to have congestive heart failure with a markedly reduced left ventricular systolic function. Her estimated ejection fraction is 15%. I would recommend that we proceed as follows: Continue beta-rita with carvedilol and titrate up as appropriate Will substitute Entresto for lisinopril Continue Lasix but at this time she appears to be fairly stable so we will switch to p.o. Lasix Would recommend a cardiac catheterization on Tuesday a.m. Will ultimately need to be followed with her EF and she may need to prophylactic ICD She will also be a candidate for an SGLT2 inhibitor probably prior to her discharge. I did explain the above to her and her daughter they understand and agree to proceed. HPI Consult Data Date of Consult: 12/26/21 HPI Narrative HPI Narrative: MELLISA MARIE, is a 76 F who presents to the hospital with ongoing shortness of breath at rest and with exertion as well as lower extremity edema. This apparently has been going on for several months probably started in last May. She had had a previous echocardiogram over a year ago and her ejection fraction was reduced at that time but she does not think that she followed up with any physician. She had been in the hospital in September was started on Lasix and it is not clear whether she had been very compliant. She denies any chest pain or paroxysmal nocturnal dyspnea she has gained weight and has had pedal edema. She has not been very compliant with her medication. As part of her work-up this time she had an echocardiogram which demonstrated marked reduction in her left ventricular systolic function. [facility] Medical History Iron deficiency anemia Home Medications ferrous sulfate [Iron (ferrous sulfate)] 325 mg PO DAILY 11/15/13 [History Last Taken 12/25/21] cyanocobalamin (vitamin B-12) 1,500 mcg PO DAILY@0800 #1 tablet 02/14/17 [Rx Last Taken 12/25/21] furosemide [Lasix] 20 mg PO DAILY #14 tab 10/16/21 [Rx Last Taken 12/24/21] Allergy/AdvReac Type Severity Reaction Status Date / Time No Known Allergies Allergy Verified 12/25/21 10:11 Family History Mother Diabetes Surgical History H/O tubal ligation Social History Smoking Status: Never smoker ROS Constitutional Constitutional: Denies fever(s) or weight loss Eyes Eyes: Reports systems reviewed and no addt'l complaints, except as documented ENT HEENT: Reports systems reviewed and no addt'l complaints, except as documented Cardiovascular Cardiovascular: Denies chest pain at rest, chest pain with activity, dyspnea at rest, dyspnea on exertion, edema, palpitations or paroxysmal nocturnal dyspnea Respiratory/Chest Respiratory/Chest: Denies dyspnea on exertion, productive cough, shortness of breath at rest or shortness of breath with exertion Gastrointestinal Gastrointestinal: Denies change in bowel habits, nausea, vomiting or weight changes Genitourinary Genitourinary: Denies difficulty urinating Musculoskeletal Musculoskeletal: Denies joint stiffness or muscle weakness Integumentary Integumentary: Denies lesions Neurologic Neurologic: Denies dizziness or syncope Psychiatric Psychiatric: Denies anxiety Endocrine Endocrinology: Denies excessive sweating or fatigue Hematologic/Lymphatic Hematologic/Lymphatic: Denies anemia Allergic/Immunologic Allergic/Immunologic: Denies seasonal rhinorrhea Physical Exam Const alert, oriented x3 and no apparent distress General Appearance: cooperative HEENT hearing grossly normal bilaterally Head and Scalp: atraumatic Eyes EOMs intact bilaterally Neck General: normal visual inspection Chest inspection of chest normal and palpation of chest normal Resp normal respiratory effort Auscultation: clear to auscultation bilaterally Cardio regular rate, regular rhythm, S1 normal heart sound and S2 normal heart sound Jugular Venous Distention: JVD GI normal to inspection, nondistended, normoactive bowel sounds Extremity normal capillary refill and no pedal edema Peripheral Pulses: Yes pulses 2+ throughout and femoral pulses present Skin no rashes or lesions noted Neuro oriented x3 and CN's II-XII intact bilaterally Psych Appearance: grossly normal and appropriate Risk Stratification Risk Stratification Applicable: No Objective Data Vital Signs: Vital Signs Temp Pulse Resp BP Pulse Ox 97.7 F L 79 20 H 104/71 97 12/26/21 10:38 12/26/21 10:38 12/26/21 10:38 12/26/21 10:38 12/26/21 10:38 Oxygen Flow Rate (L/min) 2 Oxygen Delivery Method Room Air Weight: 122 lb 12.76 oz Body Mass Index (BMI) 20.5 Intake & Output: Intake and Output for Last 24 Hours 12/24/21 12/25/21 12/26/21 23:59 23:59 23:59 Intake Total 600 / 600 Output Total 2250 / 2250 400 / 400 Balance -1650 / -1650 -400 / -400 Lab / Micro Data Result Diagrams: 12/26/21 05:06 12/26/21 05:06 Labs: Laboratory Results - last 24 hr 12/25/21 10:33: WBC 5.9, RBC 6.13 H, Hgb 16.9 H, Hct 53.2 H, MCV 86.8, MCH 27.6, MCHC 31.8 L, RDW Std Deviation 46.4 H, RDW Coeff of Esme 15.0 H, Plt Count 173, MPV 10.1, Immature Gran % (Auto) 0.300, Neut % (Auto) 66.7, Lymph % (Auto) 24.2, [place] % (Auto) 7.1, Eos % (Auto) 1.0, Baso % (Auto) 0.7, Absolute Neuts (auto) 4.0, Absolute Lymphs (auto) 1.43, Nucleated RBC % 0 12/25/21 10:33: D-Dimer Quant (PE/DVT) 3.28 H* 12/25/21 10:33: Sodium 142, Potassium 3.8, Chloride 107, Carbon Dioxide 29.0, Anion Gap 6, BUN 20 H, Creatinine 0.97, Estim Creat Clear Calc 46.19, Est GFR (MDRD) Af Amer 72, Est GFR (MDRD) Non-Af 59 L, BUN/Creatinine Ratio 20.6 H, Glucose 117 H, Calcium 9.4, Troponin I High Sens 26 12/25/21 10:33: B-Natriuretic Peptide 2902.7 H 12/25/21 13:40: Troponin I High Sens 12/26/21 05:06: WBC 5.2, RBC 5.85 H, Hgb 16.0 H, Hct 49.4 H, MCV 84.4, MCH 27.4, MCHC 32.4, RDW Std Deviation 44.2 H, RDW Coeff of Esme 14.6, Plt Count 153, MPV 10.7, Immature Gran % (Auto) 0.200, Neut % (Auto) 57.3, Lymph % (Auto) 29.7, [place] % (Auto) 8.9, Eos % (Auto) 2.7, Baso % (Auto) 1.2 H, Absolute Neuts (auto) 3.0, Absolute Lymphs (auto) 1.54, Nucleated RBC % 0 12/26/21 05:06: Sodium 141, Potassium 3.4 L, Chloride 105, Carbon Dioxide 29.0, Anion Gap 7, BUN 20 H, Creatinine 0.77, Estim Creat Clear Calc 42.08, Est GFR (MDRD) Af Amer 94, Est GFR (MDRD) Non-Af 78, BUN/Creatinine Ratio 26.0 H, Glucose 107 H, Calcium 8.6 Cardiology Labs/Tests 12/25/21 10:33: WBC 5.9, RBC 6.13 H, Hgb 16.9 H, Hct 53.2 H, MCV 86.8, MCH 27.6, MCHC 31.8 L, Plt Count 173, MPV 10.1, Immature Gran % (Auto) 0.300, Neut % (Auto) 66.7, Lymph % (Auto) 24.2, [place] % (Auto) 7.1, Eos % (Auto) 1.0, Baso % (Auto) 0.7, Absolute Neuts (auto) 4.0, Nucleated RBC % 0 12/25/21 10:33: D-Dimer Quant (PE/DVT) 3.28 H* 12/25/21 10:33: Sodium 142, Potassium 3.8, Chloride 107, Carbon Dioxide 29.0, Anion Gap 6, BUN 20 H, Creatinine 0.97, Est GFR (MDRD) Af Amer 72, Est GFR (MDRD) Non-Af 59 L, BUN/Creatinine Ratio 20.6 H, Glucose 117 H, Calcium 9.4 12/25/21 10:33: B-Natriuretic Peptide 2902.7 H 12/26/21 05:06: WBC 5.2, RBC 5.85 H, Hgb 16.0 H, Hct 49.4 H, MCV 84.4, MCH 27.4, MCHC 32.4, Plt Count 153, MPV 10.7, Immature Gran % (Auto) 0.200, Neut % (Auto) 57.3, Lymph % (Auto) 29.7, [place] % (Auto) 8.9, Eos % (Auto) 2.7, Baso % (Auto) 1.2 H, Absolute Neuts (auto) 3.0, Nucleated RBC % 0 12/26/21 05:06: Sodium 141, Potassium 3.4 L, Chloride 105, Carbon Dioxide 29.0, Anion Gap 7, BUN 20 H, Creatinine 0.77, Est GFR (MDRD) Af Amer 94, Est GFR (MDRD) Non-Af 78, BUN/Creatinine Ratio 26.0 H, Glucose 107 H, Calcium 8.6 Rhythm: EKG: ECHO: Stress Test: Cardiac Cath: PCI: CT Surgery: Holter monitor: EPS: PPM: CXR: Chest CT Scan: Radiography Diagnostic Testing: Radiology Impression Chest X-Ray 12/25/21 11:18 IMPRESSION: Small left pleural effusion with left basilar infiltration. Cardiomegaly. Electronically Signed: Ty Mccabe MD at 11:55 EDT , Chest CTA 12/25/21 11:40 IMPRESSION: Bilateral pleural effusions left greater than right with left basilar atelectasis and infiltrate. Moderate sized cardiomegaly. No evidence of pulmonary embolism. Electronically Signed: Ty Mccabe MD at 12:14 EDT , Echocardiogram 12/25/21 14:40 Interpretation Summary Severely dilated left ventricle. The estimated ejection fraction is 13 %. There is severe global hypokinesis of the left ventricle. The left atrium is moderately enlarged. Moderate (2+) eccentric mitral valve insufficiency. Pulmonary artery systolic pressure is 39 mmHg. Mild (1+) eccentric aortic valve insufficiency. Compared to previous study, the left ventricular systolic function has worsened.. Ordering Physician: José Miguel Dougherty Referring Physician: Andrea Frazier M.D. Performed By: Gunner Mtz RCS
[2021-12-27] VITALS (11 sets, daily range): BP systolic 98–112; BP diastolic 66–85; PULSE 71–79; RESP 16–18; TEMP 35.8–36.7; O2SAT 93–97
[2021-12-27 05:41] LABS: Absolute Lymphocyte Count 1.55 X10^3/uL (0.83-4.51); Absolute Neutrophil Count 2.9 X10^3/uL (2.0-7.7); Basophil# 0.05 X10^3/uL; Eosinophil# 0.19 X10^3/uL; Eosinophils% 3.7 % (0-5); Hematocrit 48.2 % (37-47); Hemoglobin 15.7 g/dL (12.0-15.0); Lymphocyte # 1.55 X10^3/ul (0.83-4.51); Lymphocyte % 29.9 % (19-41); Mean Corp Hgb Conc 32.6 g/dL (32-36); Mean Corpuscular Hgb 27.7 pg (27.0-32.0); Mean Platelet Vol. 10.5 fl (6.2-12.0); Monocyte# 0.48 X10^3/uL; Monocyte% 9.2 % (0-10); NRBC Flagged by Analyzer 0 % (0-5); Neutrophil # 2.91 X10^3/uL (2.7-7.7); Platelet Count 143 K/mm3 (150-450); RBC Distribution Width CV 14.7 % (11.6-14.6); Red Blood Count 5.67 M/mm3 (4.2-5.4); White Blood Count 5.2 K/mm3 (4.4-11.0)
[2021-12-27 06:01] LABS: Anion Gap 6 (5-15); BUN 21 mg/dL (7-18); Calcium,Total 8.4 mg/dL (8.5-10.1); Chloride 105 mmol/L (98-107); Creatinine, Serum 0.81 mg/dL (0.55-1.02); EST Glomerular Filtration Rate 73 mL/min (>60); Est Glom Filt Rate - Afr Amer 88 mL/min (>60); Estimated Creatinine Clearance 51.02 ml/min; Glucose 130 mg/dL (74-106); Potassium 3.6 mmol/L (3.5-5.1); Sodium Level 141 mmol/L (136-145)
--- NOTE | 2021-12-27 08:55 | PN.CARD_ITS ---
Subjective Subjective Seen and evaluated. Has been doing well. Walking around in room. Asymptomatic. Objective Data Vital Signs: Vital Signs Temp Pulse Resp BP Pulse Ox 97.8 F 79 18 107/85 H 95 12/27/21 07:58 12/27/21 07:58 12/27/21 07:58 12/27/21 07:58 12/27/21 07:58 Oxygen Flow Rate (L/min) 2 Oxygen Delivery Method Room Air Weight: 120 lb 9.486 oz Body Mass Index (BMI) 20.5 Intake & Output: Intake and Output for Last 24 Hours 12/25/21 12/26/21 12/27/21 23:59 23:59 23:59 Intake Total 600 / 600 720 / 720 300 / 300 Output Total 2250 / 2250 2650 / 2650 300 / 300 Balance -1650 / -1650 -1930 / -1930 0 / 0 Lab / Micro Data Result Diagrams: 12/27/21 05:22 12/27/21 05:22 Labs: Laboratory Results - last 24 hr 12/27/21 05:22: WBC 5.2, RBC 5.67 H, Hgb 15.7 H, Hct 48.2 H, MCV 85.0, MCH 27.7, MCHC 32.6, RDW Std Deviation 45.0 H, RDW Coeff of Esme 14.7 H, Plt Count 143 L, MPV 10.5, Immature Gran % (Auto) 0.200, Neut % (Auto) 56.0, Lymph % (Auto) 29.9, [place] % (Auto) 9.2, Eos % (Auto) 3.7, Baso % (Auto) 1.0, Absolute Neuts (auto) 2.9, Absolute Lymphs (auto) 1.55, Nucleated RBC % 0 12/27/21 05:22: Sodium 141, Potassium 3.6, Chloride 105, Carbon Dioxide 30.0, Anion Gap 6, BUN 21 H, Creatinine 0.81, Estim Creat Clear Calc 51.02, Est GFR (MDRD) Af Amer 88, Est GFR (MDRD) Non-Af 73, BUN/Creatinine Ratio 26.0 H, Glucose 130 H, Calcium 8.4 L Cardiology Labs/Tests 12/27/21 05:22: WBC 5.2, RBC 5.67 H, Hgb 15.7 H, Hct 48.2 H, MCV 85.0, MCH 27.7, MCHC 32.6, Plt Count 143 L, MPV 10.5, Immature Gran % (Auto) 0.200, Neut % (Auto) 56.0, Lymph % (Auto) 29.9, [place] % (Auto) 9.2, Eos % (Auto) 3.7, Baso % (Auto) 1.0, Absolute Neuts (auto) 2.9, Nucleated RBC % 0 12/27/21 05:22: Sodium 141, Potassium 3.6, Chloride 105, Carbon Dioxide 30.0, Anion Gap 6, BUN 21 H, Creatinine 0.81, Est GFR (MDRD) Af Amer 88, Est GFR (MDRD) Non-Af 73, BUN/Creatinine Ratio 26.0 H, Glucose 130 H, Calcium 8.4 L Rhythm: EKG: ECHO: Stress Test: Cardiac Cath: PCI: CT Surgery: Holter monitor: EPS: PPM: CXR: Chest CT Scan: Physical Exam Const alert, oriented x3 and no apparent distress General Appearance: cooperative HEENT hearing grossly normal bilaterally Head and Scalp: atraumatic Eyes EOMs intact bilaterally Neck General: normal visual inspection Chest inspection of chest normal and palpation of chest normal Resp normal respiratory effort Auscultation: clear to auscultation bilaterally Cardio regular rate, regular rhythm, S1 normal heart sound and S2 normal heart sound Jugular Venous Distention: JVD GI normal to inspection, nondistended, normoactive bowel sounds Extremity normal capillary refill and no pedal edema Peripheral Pulses: Yes pulses 2+ throughout and femoral pulses present Skin no rashes or lesions noted Neuro oriented x3 and CN's II-XII intact bilaterally Psych Appearance: grossly normal and appropriate Assessment & Plan Assessment/Plan (1) CHF (congestive heart failure): PLAN: She presents with shortness of breath and is noted to have congestive heart failure with a markedly reduced left ventricular systolic function. Her estimated ejection fraction is 15%. I would recommend that we proceed as follows: Continue beta-rita with carvedilol and titrate up as appropriate Will substitute Entresto for lisinopril Continue Lasix but at this time she appears to be fairly stable so we will switch to p.o. Lasix Would recommend a cardiac catheterization on Tuesday a.m. Will ultimately need to be followed with her EF and she may need to prophylactic ICD She will also be a candidate for an SGLT2 inhibitor probably prior to her discharge. I did explain the above to her and her daughter they understand and agree to proceed.
[2021-12-27] MEDS: Cyanocobalamin 500 MCG Tablet 1500 MCG PO (09:05)
[2021-12-27] MEDS: SACUBITRIL/VALSARTAN 24/26 MG TABLET 1 EACH PO ×2 (09:05→20:46)
[2021-12-27] MEDS: Carvedilol 3.125 MG TABLET PO ×2 (09:05→20:46)
[2021-12-27] MEDS: Enoxaparin 40 MG/0.4 ML Syringe SC (09:06)
[2021-12-27] MEDS: Furosemide 40 MG Tablet PO (09:06)
--- NOTE | 2021-12-27 09:27 | PN.HOSP_ITS ---
Subjective Subjective Doing well, no issues overnight. Breathing much better today. Objective Data Objective Data Vital Signs: Vital Signs Temp Pulse Resp BP Pulse Ox 97.8 F 79 18 107/85 H 95 12/27/21 07:58 12/27/21 07:58 12/27/21 07:58 12/27/21 07:58 12/27/21 07:58 Oxygen Flow Rate (L/min) 2 Oxygen Delivery Method Room Air Weight: 120 lb 9.486 oz Body Mass Index (BMI) 20.5 Intake & Output: Intake and Output for Last 24 Hours 12/26/21 12/27/21 12/28/21 03:59 03:59 03:59 Intake Total 600 / 600 720 / 720 720 / 720 Output Total 2250 / 2250 2650 / 2650 300 / 300 Balance -1650 / -1650 -1930 / -1930 420 / 420 Lab / Micro Data Result Diagrams: 12/27/21 05:22 12/27/21 05:22 Labs: Laboratory Results - last 24 hr 12/27/21 05:22: WBC 5.2, RBC 5.67 H, Hgb 15.7 H, Hct 48.2 H, MCV 85.0, MCH 27.7, MCHC 32.6, RDW Std Deviation 45.0 H, RDW Coeff of Esme 14.7 H, Plt Count 143 L, MPV 10.5, Immature Gran % (Auto) 0.200, Neut % (Auto) 56.0, Lymph % (Auto) 29.9, [place] % (Auto) 9.2, Eos % (Auto) 3.7, Baso % (Auto) 1.0, Absolute Neuts (auto) 2.9, Absolute Lymphs (auto) 1.55, Nucleated RBC % 0 12/27/21 05:22: Sodium 141, Potassium 3.6, Chloride 105, Carbon Dioxide 30.0, Anion Gap 6, BUN 21 H, Creatinine 0.81, Estim Creat Clear Calc 51.02, Est GFR (MDRD) Af Amer 88, Est GFR (MDRD) Non-Af 73, BUN/Creatinine Ratio 26.0 H, Glucose 130 H, Calcium 8.4 L Physical Exam Narrative Const alert, oriented x3 and no apparent distress General Appearance: cooperative HEENT normocephalic Eyes PERRL, EOMs intact bilaterally and conjunctivae normal Neck supple and no JVD Resp normal respiratory effort, no retractions and no use of accessory muscles Auscultation: diminished lung sounds; Negative for crackles, rales, rhonchi or wheezes Cardio regular rate, regular rhythm, S1 normal heart sound, S2 normal heart sound and no murmurs GI soft to palpation, non-tender and non-distended; Negative for hepatosplenomegaly Extremity General Extremity: edema; Negative for clubbing or cyanosis Skin no rashes or lesions noted Neuro no focal motor deficits and no sensory deficits noted Psych affect normal Appearance: appropriate Assessment & Plan Assessment/Plan (1) CHF (congestive heart failure): (2) Acute respiratory failure with hypoxia: PLAN: 1. Acute hypoxic respiratory failure secondary to acute systolic CHF exacerbation ? She was supposed to have an echo as an outpatient and the previous ED physician did coordinate with the primary care's office however it does not appear that she followed up ? Did desaturate down to 87% with ambulation, and then had to be placed on oxygen overnight for an oxygen saturation of 84% ? Transition to oral Lasix ? Echo demonstrates an EF of 13%, will consult cardiology and place her on Coreg and Entresto ? Her left pleural effusion at this time is not large enough to drain ? Troponin is unremarkable and equal to the troponin she had in September ? CTA of the chest is unremarkable for PE 2. Dementia ? Undiagnosed however family has noticed worsening signs since July ? Recommend outpatient evaluation by PCP DVT: Fredo Charges/Coding Visit Charges Inpatient E&M: 87324 Subs Hosp L2
--- NOTE | 2021-12-27 13:42 | NURSING ---
spoke at length w/pt's dtr Dariana ( a resp therapist for another hospital). Disc heart cath for tomorrow, echo/lab results. She indicates understanding and states pt's of many years August 2021 from covid and pt has been depressed/heartbroken since then. also disc pt memory concerns. She indicates they are aware and plan follow up after this admission.
--- NOTE | 2021-12-27 17:04 | NURSING ---
education booklet on CHF given to pt. to read on own time. ed focus heart cath d/t pt limited ability to hold on to new information
[2021-12-27] MEDS: 0.9% Saline Lock 10 ML Syringe IV (17:57)
[2021-12-28] VITALS (16 sets, daily range): BP systolic 95–119; BP diastolic 63–89; PULSE 63–78; RESP 16–18; TEMP 36.3–36.4; O2SAT 90–98
[2021-12-28 05:01] LABS: Absolute Lymphocyte Count 1.77 X10^3/uL (0.83-4.51); Absolute Neutrophil Count 2.7 X10^3/uL (2.0-7.7); Basophil# 0.04 X10^3/uL; Basophil% 0.8 % (0-1); Eosinophil# 0.19 X10^3/uL; Eosinophils% 3.7 % (0-5); Hematocrit 52.3 % (37-47); Hemoglobin 16.9 g/dL (12.0-15.0); Lymphocyte # 1.77 X10^3/ul (0.83-4.51); Lymphocyte % 34.4 % (19-41); Mean Corp Hgb Conc 32.3 g/dL (32-36); Mean Corpuscular Hgb 27.6 pg (27.0-32.0); Mean Corpuscular Volume 85.3 fL (81-99); Mean Platelet Vol. 10.4 fl (6.2-12.0); Monocyte# 0.43 X10^3/uL; Monocyte% 8.4 % (0-10); NRBC Flagged by Analyzer 0 % (0-5); Neutrophil % 52.5 % (47-70); Platelet Count 144 K/mm3 (150-450); RBC Distribution Width CV 14.6 % (11.6-14.6); RBC Distribution Width SD 44.6 fl (35.1-43.9); Red Blood Count 6.13 M/mm3 (4.2-5.4); White Blood Count 5.1 K/mm3 (4.4-11.0)
[2021-12-28 05:24] LABS: Anion Gap 7 (5-15); BUN 20 mg/dL (7-18); BUN/Creat Ratio 30.3 RATIO (10-20); Calcium,Total 8.2 mg/dL (8.5-10.1); Chloride 106 mmol/L (98-107); Creatinine, Serum 0.66 mg/dL (0.55-1.02); EST Glomerular Filtration Rate 93 mL/min (>60); Est Glom Filt Rate - Afr Amer 112 mL/min (>60); Estimated Creatinine Clearance 40.35 ml/min; Glucose 111 mg/dL (74-106); Potassium 3.5 mmol/L (3.5-5.1); Sodium Level 142 mmol/L (136-145)
--- NOTE | 2021-12-28 05:55 | EKG12_ITS ---
Test Reason : AM EKG Blood Pressure : / mmHG Vent. Rate : 083 BPM Atrial Rate : 083 BPM P-R Int : 180 ms QRS Dur : 166 ms QT Int : 440 ms P-R-T Axes : 040 -48 120 degrees QTc Int : 517 ms Normal sinus rhythm Left axis deviation Left bundle branch block Abnormal ECG When compared with ECG of 25-DEC-2021 11:14, MANUAL COMPARISON REQUIRED, DATA IS UNCONFIRMED Confirmed by PATT STANTON, KAREEM ([id number]), make up editor EDMUND YU ([id number]) on 12/29/2021 8:16:56 AM Referred By: JACOB Confirmed By:KAREEM BELTRE MD
[2021-12-28] MEDS: Carvedilol 3.125 MG TABLET PO (06:04)
[2021-12-28] MEDS: SACUBITRIL/VALSARTAN 24/26 MG TABLET 1 EACH PO (06:04)
[2021-12-28] MEDS: 0.9% Saline Lock 10 ML Syringe IV (06:05)
[2021-12-28] MEDS: 0.9% Normal Saline 1,000 ML 15 ML IV (06:09)
--- NOTE | 2021-12-28 08:20 | PN.CARD_ITS ---
Subjective Subjective Patient seen and evaluated. Underwent cardiac catheterization today. Objective Data Vital Signs: Vital Signs Temp Pulse Resp BP Pulse Ox 97.5 F L 71 16 108/72 94 12/28/21 06:08 12/28/21 06:59 12/28/21 06:08 12/28/21 06:08 12/28/21 07:00 Oxygen Flow Rate (L/min) 2 Oxygen Delivery Method Room Air Weight: 117 lb 11.629 oz Body Mass Index (BMI) 20.5 Intake & Output: Intake and Output for Last 24 Hours 12/26/21 12/27/21 12/28/21 23:59 23:59 23:59 Intake Total 720 / 720 1030 / 1330 300 / 300 Output Total 2650 / 2650 750 / 1150 400 / 400 Balance -1930 / -1930 280 / 180 -100 / -100 Lab / Micro Data Result Diagrams: 12/28/21 04:15 12/28/21 04:15 Labs: Laboratory Results - last 24 hr 12/28/21 04:15: WBC 5.1, RBC 6.13 H, Hgb 16.9 H, Hct 52.3 H, MCV 85.3, MCH 27.6, MCHC 32.3, RDW Std Deviation 44.6 H, RDW Coeff of Esme 14.6, Plt Count 144 L, MPV 10.4, Immature Gran % (Auto) 0.200, Neut % (Auto) 52.5, Lymph % (Auto) 34.4, [place] % (Auto) 8.4, Eos % (Auto) 3.7, Baso % (Auto) 0.8, Absolute Neuts (auto) 2.7, Absolute Lymphs (auto) 1.77, Nucleated RBC % 0 12/28/21 04:15: Sodium 142, Potassium 3.5, Chloride 106, Carbon Dioxide 29.0, Anion Gap 7, BUN 20 H, Creatinine 0.66, Estim Creat Clear Calc 40.35, Est GFR (MDRD) Af Amer 112, Est GFR (MDRD) Non-Af 93, BUN/Creatinine Ratio 30.3 H, Glucose 111 H, Calcium 8.2 L Cardiology Labs/Tests 12/28/21 04:15: WBC 5.1, RBC 6.13 H, Hgb 16.9 H, Hct 52.3 H, MCV 85.3, MCH 27.6, MCHC 32.3, Plt Count 144 L, MPV 10.4, Immature Gran % (Auto) 0.200, Neut % (Auto) 52.5, Lymph % (Auto) 34.4, [place] % (Auto) 8.4, Eos % (Auto) 3.7, Baso % (Auto) 0.8, Absolute Neuts (auto) 2.7, Nucleated RBC % 0 12/28/21 04:15: Sodium 142, Potassium 3.5, Chloride 106, Carbon Dioxide 29.0, Anion Gap 7, BUN 20 H, Creatinine 0.66, Est GFR (MDRD) Af Amer 112, Est GFR (MDRD) Non-Af 93, BUN/Creatinine Ratio 30.3 H, Glucose 111 H, Calcium 8.2 L Rhythm: EKG: ECHO: Stress Test: Cardiac Cath: PCI: CT Surgery: Holter monitor: EPS: PPM: CXR: Chest CT Scan: Physical Exam Const alert, oriented x3 and no apparent distress General Appearance: cooperative HEENT hearing grossly normal bilaterally Head and Scalp: atraumatic Eyes EOMs intact bilaterally Neck General: normal visual inspection Chest inspection of chest normal and palpation of chest normal Resp normal respiratory effort Auscultation: clear to auscultation bilaterally Cardio regular rate, regular rhythm, S1 normal heart sound and S2 normal heart sound Jugular Venous Distention: JVD GI normal to inspection, nondistended, normoactive bowel sounds Extremity normal capillary refill and no pedal edema Peripheral Pulses: Yes pulses 2+ throughout and femoral pulses present Skin no rashes or lesions noted Neuro oriented x3 and CN's II-XII intact bilaterally Psych Appearance: grossly normal and appropriate Assessment & Plan Assessment/Plan (1) CHF (congestive heart failure): PLAN: She presents with shortness of breath and is noted to have congestive heart failure with a markedly reduced left ventricular systolic function. Her estimated ejection fraction is 15%. I would recommend that we proceed as follows after the cardiac catheterization today which demonstrated the following: Normal left main coronary artery. Left anterior descending artery with no significant stenosis. Left circumflex artery with no significant stenosis. Dominant large right coronary artery with no significant stenosis. Severe left ventricular systolic dysfunction. Continue beta-rita with carvedilol and titrate up as appropriate Continue Entresto Continue diuretic Start SGLT2 inhibitor Follow-up as outpatient Thank you for allowing me to participate in the care of your patient. Please don't hesitate to call if any issues arise.
--- NOTE | 2021-12-28 08:29 | CL.D_ITS ---
Patient Name: MELLISA MARIE Study Date: 12/28/2021 Performing: Adama Cabrera MD Ht: 66 inches 168 cm : 1945 Wt: 117 lbs 53 kg Age: 76 Gender: female BSA: 1.59 PROCEDURE(S) PERFORMED [id number])LHC/COR/LV CLINICAL PROFILE AND INDICATIONS Indications: Cardiomyopathy Heart Failure: NYHA Class: 3, Newly Diagnosed: Yes, Heart Failure Type: Systolic Stress/Imaging Stress/Image Study Performed: No CAD Presentations: No Sxs, no angina. CONCLUSIONS Normal coronary arteries Cardiomyopathy: Dilated RECOMMENDATIONS Medical therapy DESCRIPTION OF PROCEDURE The patient arrived to the procedure lab. The risks and benefits of the procedure as well as a full d escription of our services here and current unavailability of surgical backup were fully explained to the patient and/or their significant other prior to the catheterization. The Timeout was completed, verifying the correct patient and procedure. The patient's procedural site was prepped and draped in the usual fashion. Local anesthetic was given subcutaneously to right radial region with Lidocaine 2% . Using a modified Seldinger technique, arterial access was obtained via the right radial artery, a 6 Fr sheath was inserted. Left Coronary Artery selective angiography was performed in multiple views u sing a 5 Fr. 4.0 [place] catheter. Right Coronary Artery selective angiography was then performed in mu ltiple views using a 5 Fr. 4.0 [place] catheter. Left Ventriculography was performed in VARELA projection using a 5 Fr. Pig[place] catheter. CORONARY ANGIOGRAPHY DOMINANCE: Right Dominant LEFT HEART ASSESSMENT Left Ventricular Ejection Fraction: by LV Gram 10 % Global Hypokinesis - Severe Depressed Left Ventricular systolic function LEFT MAIN: Angiographically normal LEFT ANTERIOR DESCENDING ARTERY: Angiographically normal CIRCUMFLEX ARTERY: Angiographically normal RIGHT CORONARY ARTERY: No significant disease noted COMPLICATIONS No Complications PROCEDURE MEDICATIONS Fentanyl 25 mcg IV Versed 0.5 mg IV Oxygen: 2 L/min via nasal cannula Aspirin (325mg) 1 Tabs PO @ 12/28/2021 07:42:27 Heparin given IA 12/28/2021 08:03:34 SUMMARY OF HEMODYNAMIC DATA Time AIR REST ECG 07:35:10 AO 104/70 (85) SA 08:11:14 LV 101/16, 19 08:16:28 LV 102/18, 22 08:16:37 LV 102/21, 23 08:17:38 LVp 102/21, 23 08:17:42 AOp 105/ (84) 08:17:49 AO 105/ (85) 08:17:50 Signed By Adama Cabrera MD On 12/28/2021 08:28:29 Adama Cabrera MD
[2021-12-28] MEDS: Cyanocobalamin 500 MCG Tablet 1500 MCG PO (08:49)
[2021-12-28] MEDS: 0.9% Normal Saline 1,000 ML 30 ML IV (08:53)
[2021-12-28] MEDS: Furosemide 40 MG Tablet PO (09:15)
[2021-12-28] MEDS: Empagliflozin 10 MG Tablet PO (09:15)
--- NOTE | 2021-12-28 11:19 | PCM.DC ---
Discharge Instructions Diet Discharge Diet: Low fat / Low cholesterol and 6 Cup Fluid Restriction Activity Discharge Activity: Return to Normal Activity Dressing / Incision Call your doctor if you observe: Fever of 101 or Higher, Shortness of breath, Dizziness, Fainting spells, Swelling in the ankles, Chest pain and Increased palpitations (irregular heartbeat) Follow Up Care Test Results: Test results from this visit will be discussed in further detail at your follow-up appointment, if applicable. Discharge Plan Admission Admit Date/Time: 12/25/21 13:49 Attending Provider: José Miguel Dougherty Primary Care Provider: Andrea Frazier Consulting Providers: Adama Cabrera Discharge Orders/Prescriptions Prescriptions: New carvedilol 3.125 mg Tablet 3.125 mg PO BID 30 Days Qty: 60 RF: 0 Jardiance 10 mg Tablet 10 mg PO DAILY 30 Days Qty: 30 RF: 0 furosemide 40 mg Tablet 40 mg PO DAILY 30 Days Qty: 30 RF: 0 Entresto 24-26 mg Tablet 1 tab PO BID 30 Days Qty: 60 RF: 0 Continued cyanocobalamin (vitamin B-12) 500 MCG tablet 1,500 mcg PO DAILY@0800 Qty: 1 RF: 0 Discontinued ferrous sulfate [Iron (ferrous sulfate)] 325 MG tablet 325 mg PO DAILY RF: 0 furosemide [Lasix] 20 mg tablet 20 mg PO DAILY Qty: 14 RF: 0 Referrals / Follow Up: Andrea Frazier MD [Primary Care Provider] - Within 1 Week Disposition Disposition (needs filled in before D/C Order can be placed): Home, Self Care
--- NOTE | 2021-12-28 11:24 | PCM.DC.SUM ---
Providers Date of Admission: 12/25/21 Primary Care Physician: Andrea Farzier MD Consultations 12/25/21 17:56 Consult: Cardiology Routine Consulting Provider: Adama Cabrera Reason for Consult: Severly reduced EF to 13% EMERGENT Consult: No MD Notified: Yes Date Notified: 12/25/21 Time Notified: 17:56 Method of Notification: Text Reason For Visit: CHF EXACERBATION Diagnosis Discharge Diagnosis (1) CHF (congestive heart failure): Status: Acute Code(s): I50.9 - Heart failure, unspecified Medications at Discharge Home Medications cyanocobalamin (vitamin B-12) 1,500 mcg PO DAILY@0800 #1 tablet 02/14/17 carvedilol 3.125 mg PO BID 30 Days #60 tab 12/28/21 empagliflozin [Jardiance] 10 mg PO DAILY 30 Days #30 tab 12/28/21 furosemide 40 mg PO DAILY 30 Days #30 tab 12/28/21 sacubitril-valsartan [Entresto] 1 tab PO BID 30 Days #60 tab 12/28/21 Hospital Course Operations None Procedures 2-D Echocardiogram and Cardiac catheterization Summary of Care Provided Minutes Spent on Discharge: 43 Hospital Course: Per HPI: MELLISA MARIE, is a 76 F who presents to the hospital with continued and ongoing shortness of breath and dyspnea on exertion with lower extremity edema. She says that this been going on for several months and was recently in the hospital in September and was started on Lasix and told to follow-up with her PCP to obtain an echocardiogram. It does not appear that she did any of this that she has not had an echo per her estimation. Here in the ER her BNP was higher than it was in September at 2902.7. With ambulation she did desat down to 87% needing oxygen for recovery. She is denying any chest pain and was given a dose of Lasix here in the ER. Of note she also did have an elevated D-dimer to over 3 so CTA of the chest was done which did show a left greater than right pleural effusion but no PE. Unfortunately pleural effusion does not appear large enough to be tapped. Family has also noted increasing signs of memory lapses and dementia. They said that is been going on for several years but it really became noticeable in July. Hospital Course: 1. Acute acute hypoxic respiratory failure secondary to acute systolic CHF exacerbation with bilateral pleural effusions?76-year-old female who has been having progressive shortness of breath over the last several months presented to the hospital with worsening shortness of breath. She was found to have an elevated BNP so an echo was obtained which demonstrated an EF of 13%. She was started on lisinopril and Coreg and lisinopril was changed to Entresto. Based on her significantly reduced EF she was also started on Jardiance, as SGLT2 inhibitors have shown significant benefit in heart failure. She did have a heart cath today which did not demonstrate any coronary artery disease and she did not need a stent. Of note she did have acute hypoxic respiratory failure, she initially did desaturate down to 87% with ambulation and then she did have a period of time where she was 84% on room air at rest and needed oxygen for recovery pending appropriate diuresis with IV Lasix. She was able to transition to oral Lasix prior to discharge with good recovery and her oxygenation and shortness of breath. I discussed with her the plan for discharge today she expressed understanding of the risk and benefits of going home and she she would like to go home today. 2. There was some concern on the family with worsening dementia. I did recommend that they follow-up with her PCP for continued outpatient observation and management. Physical Exam Const alert, oriented x3 and no apparent distress General Appearance: cooperative HEENT normocephalic Eyes PERRL, EOMs intact bilaterally and conjunctivae normal Neck supple and no JVD Resp normal respiratory effort, no retractions and no use of accessory muscles Auscultation: diminished lung sounds; Negative for crackles, rales, rhonchi or wheezes Cardio regular rate, regular rhythm, S1 normal heart sound, S2 normal heart sound and no murmurs GI soft to palpation, non-tender and non-distended; Negative for hepatosplenomegaly Extremity General Extremity: edema; Negative for clubbing or cyanosis Skin no rashes or lesions noted Neuro no focal motor deficits and no sensory deficits noted Psych affect normal Appearance: appropriate Weight / BMI Weight Weight: 117 lb 11.629 oz Body Mass Index (BMI) 20.5 ABG / Lab / Microbiology Data Result Diagrams: 12/28/21 04:15 12/28/21 04:15 Laboratory: Laboratory Results - last 24 hr 12/28/21 04:15: WBC 5.1, RBC 6.13 H, Hgb 16.9 H, Hct 52.3 H, MCV 85.3, MCH 27.6, MCHC 32.3, RDW Std Deviation 44.6 H, RDW Coeff of Esme 14.6, Plt Count 144 L, MPV 10.4, Immature Gran % (Auto) 0.200, Neut % (Auto) 52.5, Lymph % (Auto) 34.4, Parker % (Auto) 8.4, Eos % (Auto) 3.7, Baso % (Auto) 0.8, Absolute Neuts (auto) 2.7, Absolute Lymphs (auto) 1.77, Nucleated RBC % 0 12/28/21 04:15: Sodium 142, Potassium 3.5, Chloride 106, Carbon Dioxide 29.0, Anion Gap 7, BUN 20 H, Creatinine 0.66, Estim Creat Clear Calc 40.35, Est GFR (MDRD) Af Amer 112, Est GFR (MDRD) Non-Af 93, BUN/Creatinine Ratio 30.3 H, Glucose 111 H, Calcium 8.2 L D/C Instructions Discharge Diet: Low fat / Low cholesterol and 6 Cup Fluid Restriction Call your doctor if you observe: Fever of 101 or Higher, Shortness of breath, Dizziness, Fainting spells, Swelling in the ankles, Chest pain and Increased palpitations (irregular heartbeat) Meaningful Use Info Meaningful Use Diagnoses (Choose all that apply): None applicable Discharge Plan Admission Admit Date/Time: 12/25/21 13:49 Attending Provider: José Miguel Dougherty Primary Care Provider: Andrea Frazier Consulting Providers: Adama Cabrera Discharge Orders/Prescriptions Prescriptions: New carvedilol 3.125 mg Tablet 3.125 mg PO BID 30 Days Qty: 60 RF: 0 Jardiance 10 mg Tablet 10 mg PO DAILY 30 Days Qty: 30 RF: 0 furosemide 40 mg Tablet 40 mg PO DAILY 30 Days Qty: 30 RF: 0 Entresto 24-26 mg Tablet 1 tab PO BID 30 Days Qty: 60 RF: 0 Continued cyanocobalamin (vitamin B-12) 500 MCG tablet 1,500 mcg PO DAILY@0800 Qty: 1 RF: 0 Discontinued ferrous sulfate [Iron (ferrous sulfate)] 325 MG tablet 325 mg PO DAILY RF: 0 furosemide [Lasix] 20 mg tablet 20 mg PO DAILY Qty: 14 RF: 0 Referrals / Follow Up: Adama Cabrera MD [STAFF PHYSICIAN] - Within 1 Month Andrea Frazier MD [Primary Care Provider] - Within 1 Week Disposition Disposition (needs filled in before D/C Order can be placed): Home, Self Care Charges/Coding Visit Charges Inpatient E&M: 53589 Disch Hosp
--- NOTE | 2021-12-28 11:44 | CASEMGMT ---
Pt has been independent in room and does not qualify for home oxygen at this time. Pt voices no further questions/concerns/needs. Cassie NINO CM
== END 2021-12-28 12:03 | disposition home or self-care (01) | DRG 287 ==
LOC: ED 11:03 → PCU 14:09
PROVIDERS: Admitting Provider Family Medicine; Emergency Provider Student in an Organized Health Care Education/Training Program; PCP Internal Medicine; Visit Provider Family Medicine
DX: I50.23 Acute on chronic systolic (congestive) heart failure (principal); I42.9 Cardiomyopathy, unspecified; F03.90 Unspecified dementia, unspecified severity, without behavioral disturbance, psychotic disturbance, mood disturbance, and anxiety; D50.9 Iron deficiency anemia, unspecified; I44.7 Left bundle-branch block, unspecified; Z79.899 Other long term (current) drug therapy
CPT/HCPCS: 36415; 71045; 71275; 80048; 83880; 84484; 85025; 85379; 93005; 93306; 93458; 99152; 99153; 99285; J7030; Q9967; A4216; C1769; C1894; J1940

== ENCOUNTER 2022-06-04 13:37 | Observation (INO) | payer MEDICARE, SELFPAY ==
[2022-06-04] VITALS (9 sets, daily range): BP systolic 78–135; BP diastolic 58–79; PULSE 69–103; RESP 14–19; TEMP 36.3–36.8; O2SAT 97–99; BMI 19.3; BMI 18.9
--- NOTE | 2022-06-04 13:53 | CT_ITS ---
STUDY: CT CERVICAL SPINE WITHOUT CONTRAST REASON FOR EXAM: Female, 77 years old. Polytrauma RADIATION DOSAGE (If Supplied By Facility): CTDIvol = ( 11.86 ) mGy, DLP = ( 243.70 ) mGycm TECHNIQUE: High resolution transaxial imaging was performed without contrast material. Sagittal and coronal images were reconstructed. Individualized dose optimization techniques were used for this CT. COMPARISON: None FINDINGS: Normal craniovertebral junction. There are degenerative changes of the anterior atlantoaxial articulation. Normal odontoid process. There is straightening of the normal cervical lordosis. Normal vertebral bodies and posterior osseous elements. C2-3: Normal endplates. Normal disc height and morphology. Normal central canal and intervertebral neuroforamina. C3-4: Normal endplates. Normal disc height and morphology. Normal central canal and intervertebral neuroforamina. C4-5: Moderate degree of disc space narrowing and disc degeneration. Minimal anterior listhesis of C4 on C5 due to facet joint osteoarthritis. Uncovertebral arthrosis more prominent on the right side with bilateral neural foraminal stenosis right greater than left. C5-6: Moderate degree of disc space narrowing. Facet joint osteoarthritis. Uncovertebral arthrosis. Mild right neural foraminal stenosis. C6-7: Normal endplates. Normal disc height and morphology. Normal central canal and intervertebral neuroforamina. C7-T1: Normal endplates. Normal disc height and morphology. Normal central canal and intervertebral neuroforamina. Normal visualized soft tissue structures. CT/Spine Cervical without Contras IMPRESSION: Multilevel degenerative changes, as described above. Electronically Signed: Ty Mccabe MD at 15:30 EDT ,
--- NOTE | 2022-06-04 13:53 | EKG12_ITS ---
Test Reason : SYNCOPE Blood Pressure : / mmHG Vent. Rate : 080 BPM Atrial Rate : 080 BPM P-R Int : 218 ms QRS Dur : 170 ms QT Int : 452 ms P-R-T Axes : 047 -31 130 degrees QTc Int : 521 ms Sinus rhythm with 1st degree A-V block Left axis deviation Left bundle branch block Abnormal ECG Confirmed by ANA STANTON, RITO ([id number]), news videotape editor EDMUND YU ([id number]) on 06/07/2022 9:54:57 A M Referred By: Confirmed By:ANDREI PEREZ MD
--- NOTE | 2022-06-04 13:53 | CT_ITS ---
STUDY: CT BRAIN WITHOUT CONTRAST REASON FOR EXAM: Female, 77 years old. An injury due to a fall. Laceration to the left side of the skull. RADIATION DOSAGE (If Supplied By Facility): CTDIvol = ( 44.99 ) mGy, DLP = ( 796.11 ) mGycm TECHNIQUE: Transaxial CT imaging of the brain was performed without administration of intravenous contrast material. Individualized dose optimization techniques were used for this CT. COMPARISON: No relevant priors. FINDINGS: Normal soft tissue structures. Normal calvarium. There is mild cerebral atrophy with widening of the extra-axial spaces and ventricular dilatation. There are areas of decreased attenuation within the white matter tracts of the supratentorial brain, consistent with microvascular disease changes. Normal basal ganglia and thalami. Normal brainstem. There is mild cerebellar atrophy. There is no intracranial hemorrhage. There are no findings of an acute ischemic infarction. Atherosclerotic calcification of the cavernous portions of the internal carotid arteries bilaterally. Normal visualized paranasal sinuses. CT/Brain/Head without Contrast IMPRESSION: Chronic involutional changes of the brain. Electronically Signed: Ty Mccabe MD at 15:25 EDT ,
--- NOTE | 2022-06-04 14:22 | EX.ED.DYSGE1 ---
HPI History of Present Illness Chief Complaint: Head Injury Informant: patient Narrative Narrative: Patient presents to ED by private vehicle syncopal episode. Prodromal lightheaded symptoms around noon today. She woke up in her living room floor hardwood. Scalp laceration. Tetanus 2 months ago. No anticoagulation medicines. Patient knows she is on 6 medications however cannot tell me what they are. Denies any extremity pain paresthesias no neck back pain. No chest pains. Reviewing records after evaluation apparent nonischemic cardiomyopathy diagnosed back in December had a heart catheterization that was normal her EF was 13%. She is on medications including Entresto followed by Dr. Cabrera. She had a left bundle branch block then. She had a loss of the spouse 4 months ago then had COVID a year ago for potential concerns causing her cardiomyopathy. She is also on Lasix. Prior similar symptoms: Yes PFSH PFSH Medical History CHF (congestive heart failure) Iron deficiency anemia Nonischemic cardiomyopathy Home Medications carvedilol 3.125 mg tablet 3.125 mg PO BID #180 tabs 01/20/22 [Rx Last Taken 06/04/22] empagliflozin 10 mg tablet (Jardiance) 10 mg PO DAILY #90 tabs 01/20/22 [Rx Last Taken 06/04/22] furosemide 40 mg tablet 40 mg PO DAILY #90 tabs 01/20/22 [Rx Last Taken 06/04/22] sacubitril 24 mg-valsartan 26 mg tablet (Entresto) 1 tab PO BID #180 tabs 01/20/22 [Rx Last Taken 06/04/22] cyanocobalamin (vitamin B-12) 500 mcg tablet 500 mcg PO DAILY supplement 06/04/22 [History Last Taken 06/04/22] Allergy/AdvReac Type Severity Reaction Status Date / Time No Known Allergies Allergy Verified 06/04/22 13:38 Family History Mother Diabetes Surgical History H/O tubal ligation Social History Smoking Status: Never smoker ROS ROS ED Constitutional Constitutional ED: Denies chills, fever(s) or sweats Eyes Eyes: Denies change in vision ENT ENT ED: Denies dysphagia or sore throat Cardiovascular Cardiovascular: Denies chest pain, leg edema, palpitations or racing heartbeat Respiratory/Chest Respiratory/Chest: Denies cough, dyspnea or dyspnea on exertion Gastrointestinal Gastrointestinal: Denies abdominal pain, diarrhea, nausea or vomiting Genitourinary Genitourinary ED: Denies dysuria, hematuria or urinary frequency Musculoskeletal Musculoskeletal: Denies back pain, extremity pain or neck pain Integumentary Reports wounds and other Details: Scalp laceration ; Denies rash Neurologic Neurologic: Denies headache(s), paresthesias or weakness EXAM Physical Exam Const Vital Signs: 06/04/22 13:39 06/04/22 14:18 06/04/22 16:23 Temperature 97.3 F L Temperature Source Temporal Pulse Rate 103 H 72 Respiratory Rate 14 19 H Respiratory Effort Normal Non-Labored Respiratory Pattern Normal Blood Pressure 126/79 H 109/58 L Blood Pressure Mean 94 75 Pulse Ox 97 99 Oxygen Delivery Method Room Air Room Air Positive well nourished and well developed General Appearance ED: well developed and NAD HEENT Reports moist mucous membranes HEENT Narrative: 4 cm left parietal scalp laceration dried blood, no active bleeding. normocephalic Eyes PERRL, EOMs intact bilaterally and conjunctivae normal General Eye ED: Yes normal appearance of both eyes Neck no lymphadenopathy and supple General: Negative for tenderness Chest Wall Chest: Negative for tenderness Resp normal respiratory effort and normal air movement Effort and Inspection: symmetric chest movement; Negative for respiratory distress Cardio regular rate, regular rhythm and no murmurs Peripheral Pulses: pulses 2+ throughout GI normal to inspection, nondistended, normoactive bowel sounds and non-tender Palpation: Negative for guarding or rebound tenderness present Back/Spine no CVA tenderness and no thoracic nor lumbar tenderness Extremity normal to inspection General Extremety ED: Negative for edema or tenderness General Extremity: Negative for edema Neuro oriented x3, CN's II-XII intact bilaterally and no sensory deficits noted Sensorium / Orientation: awake and alert Skin no rashes or lesions noted and no wounds MDM MDM MDM Narrative Medical decision making narrative: EKG chronic LBBB. Patient no focal neurologic deficits. Head injury scalp laceration. Trauma scans head and neck negative. Scalp laceration repaired with 4 carol[place]. Labs electrolytes are stable. She remained stable sinus rhythm on the monitor. History of cardiomyopathy EF of 13% syncopal episode tody, also 2 weeks ago, later on daughter reports she had 1 a month ago. She is at risk for dysrhythmias. She did have prodromal lightheaded symptoms. I spoke with covering sand operator Dr. Barajas, discussed her history, I agree she needs observation with repeat echocardiogram. Patient initially hesitant of wanting to stay therefore there was a delay. She later agreed. I spoke with hospitalist Dr. Terrazas for admission. Procedure note: Verbal consent. LET was placed over the scalp. Wound cleansed with normal saline. Total 4 carolina placed with good approximation. Patient tolerated procedure well. Lab Data Attestation: I reviewed the patient's lab results. Labs: Laboratory Results - last 24 hr 06/04/22 06/04/22 14:40 14:40 WBC 5.3 RBC 4.82 Hgb 14.6 Hct 43.7 MCV 90.7 MCH 30.3 MCHC 33.4 RDW Std Deviation 39.8 RDW Coeff of Esme 12.0 Plt Count 172 MPV 9.1 Immature Gran % (Auto) 0.400 Neut % (Auto) 63.6 Lymph % (Auto) 25.8 [place] % (Auto) 8.1 Eos % (Auto) 1.3 Baso % (Auto) 0.8 Absolute Neuts (auto) 3.4 Absolute Lymphs (auto) 1.37 Nucleated RBC % 0 Sodium 140 Potassium 3.5 Chloride 105 Carbon Dioxide 30.0 Anion Gap 5 BUN 19 H Creatinine 0.70 Estim Creat Clear Calc 40.48 Est GFR (MDRD) Af Amer 103 Est GFR (MDRD) Non-Af 86 BUN/Creatinine Ratio 27.0 H Glucose 159 H Calcium 9.0 Radiography Diagnostic Testing: Clinical Impression(s) from Imaging Studies Brain CT 06/04/22 13:53 IMPRESSION: Chronic involutional changes of the brain. Electronically Signed: Ty Mccabe MD at 15:25 EDT , Cervical Spine CT 06/04/22 13:53 IMPRESSION: Multilevel degenerative changes, as described above. Electronically Signed: Ty Mccabe MD at 15:30 EDT , EKG Initial EKG: Attestation: I personally reviewed and interpreted this EKG as follows: Comments: Sinus first-degree AV block rate of 80, no ST changes. Left bundle branch block. Similar EKG from December 2021. Discharge Plan Dx/Rx/DC Orders Clinical Impression: LBBB (left bundle branch block), Nonischemic cardiomyopathy, Syncope, CHI (closed head injury), Laceration of scalp Disposition Disposition: Acute Care Hospital [facility] Discharge Date/Time: 06/04/22 17:04
[2022-06-04] MEDS: Lidocaine/Epi/Tetracaine 50 ML 1 APPLIC TOPICAL (14:36)
[2022-06-04 14:49] LABS: Absolute Lymphocyte Count 1.37 X10^3/uL (0.83-4.51); Absolute Neutrophil Count 3.4 X10^3/uL (2.0-7.7); Basophil# 0.04 X10^3/uL; Basophil% 0.8 % (0-1); Eosinophil# 0.07 X10^3/uL; Eosinophils% 1.3 % (0-5); Hematocrit 43.7 % (37-47); Hemoglobin 14.6 g/dL (12.0-15.0); Lymphocyte # 1.37 X10^3/ul (0.83-4.51); Lymphocyte % 25.8 % (19-41); Mean Corp Hgb Conc 33.4 g/dL (32-36); Mean Corpuscular Hgb 30.3 pg (27.0-32.0); Mean Corpuscular Volume 90.7 fL (81-99); Mean Platelet Vol. 9.1 fl (6.2-12.0); Monocyte# 0.43 X10^3/uL; Monocyte% 8.1 % (0-10); NRBC Flagged by Analyzer 0 % (0-5); Neutrophil # 3.37 X10^3/uL (2.7-7.7); Neutrophil % 63.6 % (47-70); Platelet Count 172 K/mm3 (150-450); RBC Distribution Width SD 39.8 fl (35.1-43.9); Red Blood Count 4.82 M/mm3 (4.2-5.4); White Blood Count 5.3 K/mm3 (4.4-11.0)
[2022-06-04 15:01] LABS: Anion Gap 5 (5-15); BUN 19 mg/dL (7-18); Chloride 105 mmol/L (98-107); EST Glomerular Filtration Rate 86 mL/min (>60); Est Glom Filt Rate - Afr Amer 103 mL/min (>60); Estimated Creatinine Clearance 40.48 ml/min; Glucose 159 mg/dL (74-106); Potassium 3.5 mmol/L (3.5-5.1); Sodium Level 140 mmol/L (136-145)
--- NOTE | 2022-06-04 16:32 | NURSING ---
PCU OBS ESTUARDO SYNCOPE, CARDIOMYOPATHY, SCALP LAC
--- NOTE | 2022-06-04 16:44 | HP.PCM.HOS_ITS ---
HPI - General General Date of Admission: 06/04/22 Date of Service: 06/04/22 Chief Complaint: Syncope HPI Narrative MELLISA MARIE, is a 77 F who presents with a syncopal episode. Patient was in her house looking for window fell off slightly in the next thing she knows she was waking up on the floor. Patient was covered in blood as well as she sustained a left occipital laceration. Was brought to the emergency room and had a head CT and neck CT that were negative for any acute process. Her head laceration was approximated with 4 carolina in the emergency room. Patient had a similar episode about 2 to 3 weeks prior with no significant warning other than feeling off. Patient does have a known history of a nonischemic cardiomyopathy with an EF of 13% on echo from December of this year. Patient states that earlier today, she had went to a park and did 12 laps without any difficulty. States that she is been eating and drinking well as of late but thinks that she may be a little bit dehydrated today. In the emergency room, patient received a tetanus shot. Patient feels fine currently. [facility] Medical History CHF (congestive heart failure) Iron deficiency anemia Nonischemic cardiomyopathy Home Medications carvedilol 3.125 mg tablet 3.125 mg PO BID #180 tabs 01/20/22 [Rx Last Taken 06/04/22] empagliflozin 10 mg tablet (Jardiance) 10 mg PO DAILY #90 tabs 01/20/22 [Rx Last Taken 06/04/22] furosemide 40 mg tablet 40 mg PO DAILY #90 tabs 01/20/22 [Rx Last Taken 06/04/22] sacubitril 24 mg-valsartan 26 mg tablet (Entresto) 1 tab PO BID #180 tabs 01/20/22 [Rx Last Taken 06/04/22] cyanocobalamin (vitamin B-12) 500 mcg tablet 500 mcg PO DAILY supplement 06/04/22 [History Last Taken 06/04/22] Allergy/AdvReac Type Severity Reaction Status Date / Time No Known Allergies Allergy Verified 06/04/22 13:38 Family History Mother Diabetes Surgical History H/O tubal ligation Social History Smoking Status: Never smoker ROS ROS Narrative All review of systems were negative except as mentioned above in the history of present illness and the other review of systems. Vital Signs Vital Signs Vital Signs: 06/04/22 13:39 06/04/22 14:18 06/04/22 16:23 Temperature 36.3 C L Temperature Source Temporal Pulse Rate 103 H 72 Respiratory Rate 14 19 H Respiratory Effort Normal Non-Labored Respiratory Pattern Normal Blood Pressure 126/79 H 109/58 L Blood Pressure Mean 94 75 Pulse Ox 97 99 Oxygen Delivery Method Room Air Room Air Weight Weight: 54.431 kg Body Mass Index (BMI) 19.3 Physical Exam Const alert and no apparent distress HEENT moist oral mucous membranes HEENT Narrative: Stapled left occipital head laceration. Hair is matted with blood. Eyes EOMs intact bilaterally Eyes Narrative: No icterus Neck no lymphadenopathy and no carotid bruits Resp normal respiratory effort, no retractions, no use of accessory muscles and clear to auscultation bilaterally Cardio regular rate, regular rhythm, S1 normal heart sound and S2 normal heart sound GI normal to inspection, nondistended, normoactive bowel sounds, soft to palpation, non-tender and non-distended Extremity normal to inspection and full ROM Neuro oriented x3, CN's II-XII intact bilaterally, moves all extremities and no focal motor deficits Sensorium / Orientation: awake and alert Psych affect normal Results Lab / Micro Data Attestation: I reviewed the patient's lab results. Result Diagrams: 06/04/22 14:40 06/04/22 14:40 Labs: Laboratory Results - last 24 hr 06/04/22 14:40: WBC 5.3, RBC 4.82, Hgb 14.6, Hct 43.7, MCV 90.7, MCH 30.3, MCHC 33.4, RDW Std Deviation 39.8, RDW Coeff of Esme 12.0, Plt Count 172, MPV 9.1, Immature Gran % (Auto) 0.400, Neut % (Auto) 63.6, Lymph % (Auto) 25.8, [place] % (Auto) 8.1, Eos % (Auto) 1.3, Baso % (Auto) 0.8, Absolute Neuts (auto) 3.4, Absolute Lymphs (auto) 1.37, Nucleated RBC % 0 06/04/22 14:40: Sodium 140, Potassium 3.5, Chloride 105, Carbon Dioxide 30.0, Anion Gap 5, BUN 19 H, Creatinine 0.70, Estim Creat Clear Calc 40.48, Est GFR (MDRD) Af Amer 103, Est GFR (MDRD) Non-Af 86, BUN/Creatinine Ratio 27.0 H, Glucose 159 H, Calcium 9.0 EKG Initial EKG: Attestation: I personally reviewed and interpreted this EKG as follows: Prior EKG tracings: available for review EKG Rhythm Intrepretation: Sinus Rhythm (Left bundle branch block. Unchanged from December of this year.) Radiology Impression Brain CT 06/04/22 13:53 IMPRESSION: Chronic involutional changes of the brain. Electronically Signed: Ty Mccabe MD at 15:25 EDT , Cervical Spine CT 06/04/22 13:53 IMPRESSION: Multilevel degenerative changes, as described above. Electronically Signed: Ty Mccabe MD at 15:30 EDT , Assessment & Plan Assessment/Plan (1) Syncope: PLAN: Unclear etiology. Patient was fairly active earlier today with no issues and then she had a syncopal episode patient may have had a prodromal event prior to this but it is really unclear but cannot rule out this just being without warning as well. Patient did have another concerning syncopal events 2 to 3 weeks earlier. Etiology: Orthostatic versus arrhythmogenic versus other Plan: * Cardiology contact in the emergency room. Will consult cardiology as I am concerned that this could be possibly an arrhythmia given her known nonischemic cardiomyopathy * Check echocardiogram * Check orthostatic vital signs. Consider making adjustments to her cardiac medications if those are positive. (2) Laceration of scalp: PLAN: Secondary to fall. Stapled in the emergency room. Remove carolina in 7 to 10 days (3) Nonischemic cardiomyopathy: PLAN: EF of 30% from 2D echocardiogram on December 28, 2021 continue with furosemide, carvedilol and Entresto Cannot rule out making changes to these medications particular if orthostatic vital signs are positive. Repeat echocardiogram PLAN: Plan VTE prophylaxis: Not indicated given observation status CODE STATUS: Addressed with the patient. Patient wishes to be full code Charges/Coding Visit Charges OBSV E&M: 95888 Initial observation care L3
--- NOTE | 2022-06-04 17:24 | ECHOD_ITS ---
Reason For Study: Syncope, Near Syncope Procedure This was a 2D Doppler, Color Flow transthoracic echocardiogram. Exam performed portable in patient room. Left Ventricle Moderately dilated left ventricle. The estimated ejection fraction is 15 %. Stage 1 diastolic dysfunction. There is severe global hypokinesis of the left ventricle. Right Ventricle Normal RV size. Normal systolic function. Atria Normal left atrium. Normal right atrium. No doppler evidence for ASD. Mitral Valve There is no mitral valve stenosis. Trivial mitral valve insufficiency. Tricuspid Valve There is no tricuspid stenosis. Trivial tricuspid valve insufficiency. Unable to estimate RV systolic pressure due to insufficient tricuspid regurgitant envelope. Aortic Valve Trisinus/trileaflet aortic valve. There is no aortic stenosis. No aortic valve insufficiency. Pulmonic Valve There is no pulmonic valvular stenosis. Trivial pulmonic valve insufficiency. Great Vessels Normal aortic root. Pericardium/Pleural No pericardial effusion. MMode/2D Measurements & Calculations LVIDd: 6.2 cm IVSd: 0.89 cm Ao root diam: 2.9 cm LVIDs: 5.9 cm LVPWd: 0.87 cm RVDd: 2.7 cm FS: 5.1 % LAV(MOD-bp): 34.4 ml LVAd ap4: 39.2 cm2 SV(MOD-sp4): 23.2 ml LAV(MOD-bp) Indexed: 21.7 ml/m2 LVLd ap4: 7.7 cm LAV(MOD-sp2): 41.0 ml EDV(MOD-sp4): 163.0 ml LAV(MOD-sp4): 29.0 ml EDV(sp4-el): 168.9 ml LVAs ap4: 34.5 cm2 LVLs ap4: 7.0 cm ESV(MOD-sp4): 139.8 ml ESV(sp4-el): 143.9 ml EF(MOD-sp4): 14.2 % EF(sp4-el): 14.8 % SV(sp4-el): 25.0 ml LA A4 area: 12.9 cm2 LA dimension(2D): 3.3 cm RA A4 area: 10.1 cm2 Doppler Measurements & Calculations MV E max nomi: 56.7 cm/sec Lat Peak E' Nomi: 6.0 cm/sec Med Peak E' Nomi: 4.5 cm/sec MV A max nomi: 121.5 cm/sec E/E' lat: 9.4 E/E' med: 12.6 MV E/A: 0.47 Ao V2 max: 124.1 cm/sec LV V1 max: 91.8 cm/sec PA V2 max: 80.6 cm/sec Ao max P.2 mmHg LV V1 max P.4 mmHg Ao V2 mean: 83.5 cm/sec Ao mean P.1 mmHg Ao V2 VTI: 24.4 cm PI end-d nomi: 109.2 cm/sec ECHO/Echo Complete Interpretation Summary The estimated ejection fraction is 15 %. Stage 1 diastolic dysfunction. There is severe global hypokinesis of the left ventricle. Moderately dilated left ventricle. Trivial mitral valve insufficiency. Ordering Physician: Avery Terrazas Referring Physician: Andrea Frazier Performed By: Dariana Vicente, DEBI, RVT
[2022-06-04] MEDS: 0.9% Normal Saline 1,000 ML 150 ML IV (18:28)
[2022-06-04] MEDS: SACUBITRIL/VALSARTAN 24/26 MG TABLET 1 EACH PO (21:45)
[2022-06-04] MEDS: Carvedilol 3.125 MG TABLET PO (21:45)
[2022-06-05] VITALS (9 sets, daily range): BP systolic 106–141; BP diastolic 70–89; PULSE 61–83; RESP 16–18; TEMP 36.6–36.7; O2SAT 95–98
[2022-06-05] MEDS: Cyanocobalamin 500 MCG Tablet PO (09:38)
[2022-06-05] MEDS: FLU VACC QS2022-23(6MOS UP)/PF 60 MCG/0.5 ML SYRINGE IM (09:39)
[2022-06-05] MEDS: Carvedilol 3.125 MG TABLET PO ×2 (09:39→19:58)
[2022-06-05] MEDS: SACUBITRIL/VALSARTAN 24/26 MG TABLET 1 EACH PO ×2 (09:39→19:58)
[2022-06-05] MEDS: Furosemide 40 MG Tablet PO (09:39)
[2022-06-05] MEDS: Empagliflozin 10 MG Tablet PO (09:39)
--- NOTE | 2022-06-05 13:54 | PCM.PN.HOSP ---
Subjective Subjective Doing well today, denies any dizziness or lightheadedness currently. She has been up to the bathroom and walked around her room without any issues. She denies any palpitations or chest pain today. Objective Data Objective Data Vital Signs: Vital Signs Temp Pulse Resp BP Pulse Ox O2 Del Method 97.8 F 69 18 106/88 H 96 Room Air 06/05/22 09:33 06/05/22 09:33 06/05/22 09:33 06/05/22 09:33 06/05/22 09:33 06/05/22 09:33 Oxygen Delivery Method Room Air Weight: 117 lb 4.575 oz Body Mass Index (BMI) 18.9 Intake & Output: Intake and Output for Last 24 Hours 06/04/22 06/05/22 06/06/22 03:59 03:59 03:59 Intake Total 1120 / 1120 480 / 480 Balance 1120 / 1120 480 / 480 Lab / Micro Data Result Diagrams: 06/04/22 14:40 06/04/22 14:40 Labs: Laboratory Results - last 24 hr 06/04/22 14:40: WBC 5.3, RBC 4.82, Hgb 14.6, Hct 43.7, MCV 90.7, MCH 30.3, MCHC 33.4, RDW Std Deviation 39.8, RDW Coeff of Esme 12.0, Plt Count 172, MPV 9.1, Immature Gran % (Auto) 0.400, Neut % (Auto) 63.6, Lymph % (Auto) 25.8, [place] % (Auto) 8.1, Eos % (Auto) 1.3, Baso % (Auto) 0.8, Absolute Neuts (auto) 3.4, Absolute Lymphs (auto) 1.37, Nucleated RBC % 0 06/04/22 14:40: Sodium 140, Potassium 3.5, Chloride 105, Carbon Dioxide 30.0, Anion Gap 5, BUN 19 H, Creatinine 0.70, Estim Creat Clear Calc 40.48, Est GFR (MDRD) Af Amer 103, Est GFR (MDRD) Non-Af 86, BUN/Creatinine Ratio 27.0 H, Glucose 159 H, Calcium 9.0 06/05/22 06:20: TSH 2.50 Radiography Diagnostic Testing: Radiology Impression Brain CT 06/04/22 13:53 IMPRESSION: Chronic involutional changes of the brain. Electronically Signed: Ty Mccbae MD at 15:25 EDT , Cervical Spine CT 06/04/22 13:53 IMPRESSION: Multilevel degenerative changes, as described above. Electronically Signed: Ty Mccabe MD at 15:30 EDT , Physical Exam Narrative General: Alert, Oriented x3, Cooperative, No apparent distress HEENT: Atraumatic, PERRLA, EOMI, Normocephalic Oral: Moist Mucosa Neck: Supple, No JVD Lungs: Clear to auscultation, Normal air movement, No rhonchi, No wheeze, No rales Cardiovascular: Regular rate, Regular Rhythm, Normal S1, Normal S2, No murmurs Abdomen: Soft, Non Tender, Non-Distended, No Hepato-splenomegaly Extremities: No edema, Capillary Refill Less than 3 Seconds Skin: No rashes, No breakdown Musculoskeletal: No Tenderness to Palpation of Joints or Extremities Neurological: Cranial nerves II-XII grossly intact, Motor Exam 5/5 strength throughout, Sensory exam intact to light touch and pain Psych/Mental Status: Normal Affect, Appropriate Assessment & Plan Assessment/Plan (1) Syncope: PLAN: Based on her reduced EF her syncopal episode is likely secondary to a cardiac arrhythmia from her significantly reduced EF. We will work on getting a LifeVest she does not seem interested in transfer for an ICD at this time and has threatened multiple times to leave AMA. Orthostatics were unremarkable and she has not had any further syncopal episodes today. (2) Laceration of scalp: PLAN: Secondary to fall. Stapled in the emergency room. Remove carolina in 7 to 10 days (3) Nonischemic cardiomyopathy: PLAN: EF of 13% from 2D echocardiogram on December 28, 2021 continue with furosemide, carvedilol and Entresto Repeat echocardiogram maintains continued severely reduced EF of 10 to 15%. Cardiology has had a conversation with her about the need for either an emergent ICD placement at a tertiary facility and transfer from here or for a LifeVest. She is adamant that she will leave today and will sign out AMA if she has to. Multiple discussions by nursing staff as well as physicians discussed with her the significant risk this places on her self but she is adamant that she does not want to stay the night PLAN: Plan DVT: Ambulation Charges/Coding Visit Charges OBSV E&M: 56089 Subsequent observation care L2
--- NOTE | 2022-06-05 14:15 | CON.PCM.CA_ITS ---
Assessment & Plan Assessment/Plan (1) Syncope: PLAN: Patient likely had an arrhythmic event in the setting of her dilated nonischemic cardiomyopathy with an EF of 15%. She is on optimal medical therapy. Continue current medications. I would recommend a LifeVest or defibrillator placement prior to discharge. (2) Dilated cardiomyopathy: PLAN: Patient was initially diagnosed with this in December of this year. She has persistent LV dysfunction. Echo done today still reveals an EF of 15%. She would definitely be a candidate for AICD. While she is being set up for that she would benefit from LifeVest. HPI Consult Data Date of Consult: 06/05/22 HPI Narrative Reason for Consultation: Syncope, dilated nonischemic cardiomyopathy HPI Narrative: MELLISA MARIE, is a 77 F who presents with syncope. Patient did not have any prodromal symptoms. She was standing by a window and suddenly passed out and woke up on her own. She had hit her head on the chair and there was blood all over the floor. Patient was found to have a laceration to her head in the emergency room. She has been admitted to the PCU for further management. She had a 2D echo repeated that revealed an EF of 15%. Her initial echo from December of this year also showed an EF of around 15%. She underwent coronary angiography which did not reveal any significant stenoses. Review of systems: All systems reviewed. All system negative except that in [facility] Medical History CHF (congestive heart failure) Iron deficiency anemia Nonischemic cardiomyopathy Home Medications carvedilol 3.125 mg tablet 3.125 mg PO BID #180 tabs 01/20/22 [Rx Last Taken 06/04/22] empagliflozin 10 mg tablet (Jardiance) 10 mg PO DAILY #90 tabs 01/20/22 [Rx Last Taken 06/04/22] furosemide 40 mg tablet 40 mg PO DAILY #90 tabs 01/20/22 [Rx Last Taken 06/04/22] sacubitril 24 mg-valsartan 26 mg tablet (Entresto) 1 tab PO BID #180 tabs 01/20/22 [Rx Last Taken 06/04/22] cyanocobalamin (vitamin B-12) 500 mcg tablet 500 mcg PO DAILY supplement 06/04/22 [History Last Taken 06/04/22] Allergy/AdvReac Type Severity Reaction Status Date / Time No Known Allergies Allergy Verified 06/04/22 13:38 Family History Mother Diabetes Surgical History H/O tubal ligation Social History Smoking Status: Never smoker Physical Exam Const alert and oriented x3 HEENT normocephalic Eyes no scleral icterus Resp normal respiratory effort and clear to auscultation bilaterally Cardio regular rate and regular rhythm Extremity no pedal edema Skin no rashes or lesions noted Psych mental status grossly normal Risk Stratification Risk Stratification Applicable: No Charges/Coding Visit Charges Inpatient E&M: 69322 Init Hosp L2 Objective Data Vital Signs: Vital Signs Temp Pulse Resp BP Pulse Ox O2 Del Method 97.8 F 69 18 106/88 H 96 Room Air 06/05/22 09:33 06/05/22 09:33 06/05/22 09:33 06/05/22 09:33 06/05/22 09:33 06/05/22 09:33 Oxygen Delivery Method Room Air Weight: 117 lb 4.575 oz Body Mass Index (BMI) 18.9 Intake & Output: Intake and Output for Last 24 Hours 06/03/22 06/04/22 06/05/22 23:59 23:59 23:59 Intake Total 120 / 120 1480 / 1480 Balance 120 / 120 1480 / 1480 Lab / Micro Data Result Diagrams: 06/04/22 14:40 06/04/22 14:40 Labs: Laboratory Results - last 24 hr 06/04/22 14:40: WBC 5.3, RBC 4.82, Hgb 14.6, Hct 43.7, MCV 90.7, MCH 30.3, MCHC 33.4, RDW Std Deviation 39.8, RDW Coeff of Esme 12.0, Plt Count 172, MPV 9.1, Immature Gran % (Auto) 0.400, Neut % (Auto) 63.6, Lymph % (Auto) 25.8, [place] % (Auto) 8.1, Eos % (Auto) 1.3, Baso % (Auto) 0.8, Absolute Neuts (auto) 3.4, Absolute Lymphs (auto) 1.37, Nucleated RBC % 0 06/04/22 14:40: Sodium 140, Potassium 3.5, Chloride 105, Carbon Dioxide 30.0, Anion Gap 5, BUN 19 H, Creatinine 0.70, Estim Creat Clear Calc 40.48, Est GFR (MDRD) Af Amer 103, Est GFR (MDRD) Non-Af 86, BUN/Creatinine Ratio 27.0 H, Glucose 159 H, Calcium 9.0 06/05/22 06:20: TSH 2.50 Cardiology Labs/Tests 06/04/22 14:40: WBC 5.3, RBC 4.82, Hgb 14.6, Hct 43.7, MCV 90.7, MCH 30.3, MCHC 33.4, Plt Count 172, MPV 9.1, Immature Gran % (Auto) 0.400, Neut % (Auto) 63.6, Lymph % (Auto) 25.8, [place] % (Auto) 8.1, Eos % (Auto) 1.3, Baso % (Auto) 0.8, Absolute Neuts (auto) 3.4, Nucleated RBC % 0 06/04/22 14:40: Sodium 140, Potassium 3.5, Chloride 105, Carbon Dioxide 30.0, Anion Gap 5, BUN 19 H, Creatinine 0.70, Est GFR (MDRD) Af Amer 103, Est GFR (MDRD) Non-Af 86, BUN/Creatinine Ratio 27.0 H, Glucose 159 H, Calcium 9.0 Rhythm: EKG: ECHO: Stress Test: Cardiac Cath: PCI: CT Surgery: Holter monitor: EPS: PPM: CXR: Chest CT Scan: Radiography Diagnostic Testing: Radiology Impression Brain CT 06/04/22 13:53 IMPRESSION: Chronic involutional changes of the brain. Electronically Signed: Ty Mccabe MD at 15:25 EDT , Cervical Spine CT 06/04/22 13:53 IMPRESSION: Multilevel degenerative changes, as described above. Electronically Signed: Ty Mccabe MD at 15:30 EDT , Echocardiogram 06/04/22 17:24 Interpretation Summary The estimated ejection fraction is 15 %. Stage 1 diastolic dysfunction. There is severe global hypokinesis of the left ventricle. Moderately dilated left ventricle. Trivial mitral valve insufficiency. Ordering Physician: Avery Terrazas Referring Physician: Andrea Frazier Performed By: Dariana Vicente, DEBI, RVT
--- NOTE | 2022-06-05 14:44 | NURSING ---
All requested information for life vest order faxed at this time.
--- NOTE | 2022-06-05 16:07 | CASEMGMT ---
TRUNG CM in to complete LAW form at this time. RN ESTELA explained LAW form to patient, patient voiced understanding. Patient signed LAW form and filed in chart. Patient provided copy of signed LAW form. Patient denied needs at discharge. Patient had no further questions or concerns at this time.
--- NOTE | 2022-06-05 18:15 | DCINST_ITS ---
Discharge Instructions Diet Discharge Diet: Low fat / Low cholesterol Dressing / Incision Call your doctor if you observe: - (syncope) Follow Up Care Test Results: Test results from this visit will be discussed in further detail at your follow- up appointment, if applicable. Discharge Plan Admission Admit Date/Time: 06/04/22 16:40 Primary Reason for Your Visit: syncope Attending Provider: José Miguel Dougherty Primary Care Provider: Andrea Frazier Consulting Providers: Jourdan Barajas ; Avery Terrazas Instructions Additional Instructions / Restrictions: Wear your external defibrillator (Life Vest) at all times except for when you shower or bathe. Follow-up with primary care physician in 7 to 10 days to have carolina removed from your scalp Discharge Orders/Prescriptions Prescriptions: Continued carvedilol 3.125 mg tablet 3.125 mg PO BID Qty: 180 3RF Jardiance 10 mg tablet 10 mg PO DAILY Qty: 90 3RF furosemide 40 mg tablet 40 mg PO DAILY Qty: 90 3RF Entresto 24-26 mg tablet 1 tab PO BID Qty: 180 3RF cyanocobalamin (vitamin B-12) 500 MCG tablet 500 mcg PO DAILY Referrals / Follow Up: [facility] [Provider Group] - Within 1 Month (follow up with cardiology next month with your scheduled appointment. ) Andrea Frazier MD [Primary Care Provider] - Within 2 Weeks Disposition Disposition (needs filled in before D/C Order can be placed): Home, Self Care
--- NOTE | 2022-06-05 18:21 | PCM.DC.SUM ---
Providers Date of Admission: 06/04/22 Primary Care Physician: Andrea Frazier MD Consultations 06/04/22 17:24 Consult: Cardiology Routine Consulting Provider: Jourdan Barajas Reason for Consult: syncope. cardiomyopathy EMERGENT Consult: No MD Notified: Yes Date Notified: 06/04/22 Time Notified: 16:42 Method of Notification: ED Physician Initiated Reason For Visit: SYNCOPE Diagnosis Discharge Diagnosis (1) Syncope: Status: Acute Code(s): R55 - Syncope and collapse Plan: Unclear etiology. Patient was fairly active earlier today with no issues and then she had a syncopal episode patient may have had a prodromal event prior to this but it is really unclear but cannot rule out this just being without warning as well. Patient did have another concerning syncopal events 2 to 3 weeks earlier. Etiology: Orthostatic versus arrhythmogenic versus other Plan: Cardiology contact in the emergency room. Will consult cardiology as I am concerned that this could be possibly an arrhythmia given her known nonischemic cardiomyopathy Check echocardiogram Check orthostatic vital signs. Consider making adjustments to her cardiac medications if those are positive. (2) Dilated cardiomyopathy: Status: Acute Code(s): I42.0 - Dilated cardiomyopathy (3) Nonischemic cardiomyopathy: Status: Acute Code(s): I42.8 - Other cardiomyopathies Plan: EF of 30% from 2D echocardiogram on December 28, 2021 continue with furosemide, carvedilol and Entresto Cannot rule out making changes to these medications particular if orthostatic vital signs are positive. Repeat echocardiogram (4) Laceration of scalp: Status: Acute Code(s): S01.01XA - Laceration without foreign body of scalp, initial encounter Plan: Secondary to fall. Stapled in the emergency room. Remove carolina in 7 to 10 days Plan VTE prophylaxis: Not indicated given observation status CODE STATUS: Addressed with the patient. Patient wishes to be full code Medications at Discharge Home Medications carvedilol 3.125 mg tablet 3.125 mg PO BID #180 tabs 01/20/22 empagliflozin 10 mg tablet (Jardiance) 10 mg PO DAILY #90 tabs 01/20/22 furosemide 40 mg tablet 40 mg PO DAILY #90 tabs 01/20/22 sacubitril 24 mg-valsartan 26 mg tablet (Entresto) 1 tab PO BID #180 tabs 01/20/22 cyanocobalamin (vitamin B-12) 500 mcg tablet 500 mcg PO DAILY supplement 06/04/22 Hospital Course Operations None Procedures 2-D Echocardiogram Summary of Care Provided Minutes Spent on Discharge: 35 Hospital Course: This is a 77-year-old female presents with syncope. Patient's second syncopal episode in the past few weeks. Really no prodrome to this. Patient did initially have positive orthostatic vital signs but subsequent orthostats were negative. Patient had 2D echocardiogram that showed an EF of 15% which was slightly improved from December where is 13% at that time. The concern is that that this may have been arrhythmogenic. Cardiology is recommended a external defibrillator or be transferred. Patient was agreeable to an external defibrillator. Notified by nursing that the external defibrillator will be placed this evening. I went and spoke to the patient after this information was made available and explained to her the purpose of the external defibrillator if she were to have an arrhythmia it would shocker hopefully shocked her out of the rhythm to a normal rhythm. Is meant to help save her life. Patient does have a follow-up appointment with [facility] cardiology in [place] some point next month and then at that point in time there to apparently get her set up for internal defibrillator placement. Explained it was very important that she follow keep that appointment and follow-up and very important for her to wear her external defibrillator at all times with the exception of when she needs to bathe. Patient expressed understanding and is awaiting on the external defibrillator to arrive this evening. Additionally, patient with her syncopal episode, had a left occipital head laceration. That was approximated with 4 carolina. She will need the carolina removed in 7 to 10 days. Patient to follow-up with her primary care physician for post hospitalization follow-up and hopefully those carolina can be removed at that time. Physical Exam Const alert and no apparent distress Constitutional Narrative: Up in bed. Psych affect normal Weight / BMI Weight Weight: 53.2 kg Body Mass Index (BMI) 18.9 ABG / Lab / Microbiology Data Result Diagrams: 06/04/22 14:40 06/04/22 14:40 Laboratory: Laboratory Results - last 24 hr 06/05/22 06:20: TSH 2.50 Radiography Diagnostic Testing: Radiology Impression Echocardiogram 06/04/22 17:24 Interpretation Summary The estimated ejection fraction is 15 %. Stage 1 diastolic dysfunction. There is severe global hypokinesis of the left ventricle. Moderately dilated left ventricle. Trivial mitral valve insufficiency. Ordering Physician: Avery Terrazas Referring Physician: Andrea Frazier Performed By: Dariana Vicente, DEBI, RVT D/C Instructions Discharge Diet: Low fat / Low cholesterol Call your doctor if you observe: - (syncope) Meaningful Use Info Meaningful Use Diagnoses (Choose all that apply): None applicable Discharge Plan Admission Admit Date/Time: 06/04/22 16:40 Primary Reason for Your Visit: syncope Attending Provider: José Miguel Dougherty Primary Care Provider: Andrea Frazier Consulting Providers: Jourdan Barajas ; Avery Terrazas Instructions Additional Instructions / Restrictions: Wear your external defibrillator (Life Vest) at all times except for when you shower or bathe. Follow-up with primary care physician in 7 to 10 days to have carolina removed from your scalp Discharge Orders/Prescriptions Prescriptions: Continued carvedilol 3.125 mg tablet 3.125 mg PO BID Qty: 180 3RF Jardiance 10 mg tablet 10 mg PO DAILY Qty: 90 3RF furosemide 40 mg tablet 40 mg PO DAILY Qty: 90 3RF Entresto 24-26 mg tablet 1 tab PO BID Qty: 180 3RF cyanocobalamin (vitamin B-12) 500 MCG tablet 500 mcg PO DAILY Referrals / Follow Up: [facility] [Provider Group] - Within 1 Month (follow up with cardiology next month with your scheduled appointment. ) Andrea Frazier MD [Primary Care Provider] - Within 2 Weeks Disposition Disposition (needs filled in before D/C Order can be placed): Home, Self Care Charges/Coding Visit Charges OBSV E&M: 01768 Observation care discharge
--- NOTE | 2022-06-05 21:00 | NURSING ---
BrianFalafel Gamesrosey estrada present to apply lifevest for patient. Tech reported that unit sent is defective. Tech attempted to be able to get another unit, but unable at this time. Patient stated that she was leaving. Informed patient that discharge was pending life vest placement. However, patient stated she is aware but cannot stay another night. This RN educated patient on risks of leaving without life vest applied including cardiac arrest. Patient voiced understanding. This RN contacted Dr Smith and updated on situation. MD aware and stated to again educate patient on risks if leaving hospital. Patient again educated by this RN on risks of leaving without life vest, patient again voiced understanding. Pt's daughter present and states that she wants the patient to stay but the patient will not listen to her. Pt response is 'when it is your time to go, it's your time to go.' Patient and daughter educated on when needing to come back to ER. [employer] has contacted clinical coordinator for a new order and they are going to reach out to patient tomorrow (Tuesday). Pt discharged via wheelchair by daughter.
--- NOTE | 2022-06-05 21:26 | PCM.HOSP.N ---
Hospitalist Note Life vest resp presented to the PCU to help transition patient safely home on device; however, the device was faulty and not functioning appropriately. Patient strongly encouraged to remain overnight with repeat AM attempt once device appropriately obtained and functional but declined. Patient was made aware this potentially could lead to severe debility or even but persisted in leaving AMA.
== END 2022-06-05 21:15 | disposition home or self-care (01) ==
LOC: ED 16:29 → PCU 16:45
PROVIDERS: Emergency Provider Emergency Medicine; PCP Internal Medicine; Visit Provider Family Medicine
DX: R55 Syncope and collapse (principal); I42.8 Other cardiomyopathies; I50.32 Chronic diastolic (congestive) heart failure; S01.01XA Laceration without foreign body of scalp, initial encounter; W19.XXXA Unspecified fall, initial encounter; I44.7 Left bundle-branch block, unspecified; Z23 Encounter for immunization; Z79.899 Other long term (current) drug therapy; Y92.019 Unspecified place in single-family (private) house as the place of occurrence of the external cause; D50.9 Iron deficiency anemia, unspecified
CPT/HCPCS: 12002; 70450; 72125; 80048; 82533; 84443; 85025; 93005; 93306; 96360; 96361; 99218; 99285; G0008; J7030; 90686; A4216; G0378

== ENCOUNTER → 2023-02-15 | Outpatient (CLI) | payer MEDICARE, SELFPAY ==
--- NOTE | 2023-02-15 09:45 | ECHOL_ITS ---
Reason For Study: Re-assess LV function, Non-Isch CMP Procedure This was a limited 2D transthoracic echocardiogram. Exam performed in department. Left Ventricle Normal LV size. Mild concentric left ventricular hypertrophy. The estimated ejection fraction is 45 %. No regional wall motion abnormalities noted. Right Ventricle Normal RV size. ICD or pacer leads identified within the right ventricle. Normal systolic function. Atria Normal left atrium. Normal right atrium. Bubble contrast study negative for right to left interatrial shunt. Aortic Valve Trisinus/trileaflet aortic valve. Pulmonic Valve Normal pulmonic valve. Great Vessels Normal aortic root. The pulmonary artery is normal size. Normal inferior vena cava. Pericardium/Pleural No pericardial effusion. Medication 22 gauge I.V. with prn adaptor inserted into right arm. Performed a rapid injection of agitated mix of 9 cc saline and 1cc air to assess for atrial septal defect. MMode/2D Measurements & Calculations LVIDd: 4.1 cm IVSd: 1.4 cm Ao root diam: 2.9 cm LVIDs: 3.3 cm LVPWd: 1.2 cm RVDd: 2.9 cm FS: 19.0 % LAV(MOD-bp): 34.7 ml LVAd ap4: 19.8 cm2 LVAd ap2: 24.4 cm2 LAV(MOD-bp) Indexed: 21.2 ml/m2 LVLd ap4: 6.9 cm LVLd ap2: 7.1 cm LAV(MOD-sp2): 37.1 ml EDV(MOD-sp4): 51.0 ml EDV(MOD-sp2): 74.0 ml LAV(MOD-sp4): 29.3 ml EDV(sp4-el): 48.3 ml EDV(sp2-el): 70.8 ml LVAs ap4: 15.2 cm2 LVAs ap2: 18.9 cm2 LVLs ap4: 6.5 cm LVLs ap2: 6.7 cm ESV(MOD-sp4): 33.1 ml ESV(MOD-sp2): 48.3 ml ESV(sp4-el): 30.2 ml ESV(sp2-el): 45.6 ml EF(MOD-sp4): 35.0 % EF(MOD-sp2): 34.7 % EF(sp4-el): 37.5 % SV(MOD-sp4): 17.8 ml SV(MOD-sp2): 25.7 ml SV(sp4-el): 18.1 ml LA dimension(2D): 2.8 cm LA A4 area: 12.4 cm2 RA A4 area: 11.1 cm2 ECHO/Echo, Limited Study Interpretation Summary Normal LV size. The estimated ejection fraction is 45 %. Bubble contrast study negative for right to left interatrial shunt. Mild concentric left ventricular hypertrophy. ICD or pacer leads identified within the right ventricle. Compared to previous study, the left ventricular systolic function has improved .. Ordering Physician: Taylor Garcia Referring Physician: Andrea Frazier M.D. Performed By: Lucero Lopez RDCS
== END | disposition home or self-care (01) ==
LOC: CVS 09:42
PROVIDERS: PCP Internal Medicine; Referring Provider Nurse Practitioner Gerontology; Visit Provider Nurse Practitioner Gerontology
DX: I50.22 Chronic systolic (congestive) heart failure (principal)
CPT/HCPCS: 93308; A4216

== ENCOUNTER 2024-03-27 15:17 | Observation (INO) | payer MEDICARE, SELFPAY ==
[2024-03-27 15:18] VITALS: PULSE 62; RESP 18; TEMP 36.2; O2SAT 96; BMI 21.4
--- NOTE | 2024-03-27 15:31 | EKG12_ITS ---
Test Reason : Blood Pressure : / mmHG Vent. Rate : 060 BPM Atrial Rate : 060 BPM P-R Int : 206 ms QRS Dur : 132 ms QT Int : 458 ms P-R-T Axes : 018 -81 116 degrees QTc Int : 458 ms AV dual-paced rhythm Abnormal ECG Confirmed by ANA STANTON, RITO ([id number]), industrial editor AVNI BARRERA ([id number]) on 04/02/2024 8:35:43 AM Referred By: Confirmed By:ANDREI PEREZ MD
--- NOTE | 2024-03-27 15:31 | CT_ITS ---
STUDY: CT BRAIN WITHOUT CONTRAST REASON FOR EXAM: Female, 79 years old. ams RADIATION DOSAGE (If Supplied By Facility): CTDIvol = ( 4.99 ) mGy, DLP = ( 745.49 ) mGycm TECHNIQUE: Transaxial CT imaging of the brain was performed without administration of intravenous contrast material. Individualized dose optimization techniques were used for this CT. COMPARISON: No relevant priors. FINDINGS: Normal soft tissue structures. Normal calvarium. Calcific plaquing of the cavernous carotid Moderate atrophy and periventricular white matter ischemic changes. Normal basal ganglia and thalami. Normal brainstem. Normal cerebellum. There is no intracranial hemorrhage. There are no findings of an acute ischemic infarction. Normal visualized paranasal sinuses. Postsurgical changes of the orbits Incidental findings of air bubbles within the cavernous sinus bilaterally possibly due to prior intravascular injection however inflammatory disease not entirely excluded. MRI with contrast would be helpful for more definitive evaluation if indicated There are also tiny air bubbles in the soft tissues posterolateral to the right sphenoid wing and within the right orbital roof. There are also tiny air bubble in the right livestock dealer space of uncertain significance CT/Brain/Head without Contrast IMPRESSION: Moderate atrophy and periventricular white matter ischemic changes. Tiny air bubbles within the cavernous sinuses of indeterminate etiology or clinical significance MRI with and without contrast may be useful for further evaluation if indicated. N.B. : The above Results were Read Back by Conor Alberto MD to Dony Escobedo DO, and understanding confirmed on 03/27/2024 17:19:33 (ET). Electronically Signed: Conor Alberto MD at 17:23 EDT ,
--- NOTE | 2024-03-27 15:49 | EDS_ITS ---
HPI History of Present Illness Chief Complaint: Confusion Narrative Narrative: Patient is a 79-year-old female with a past medical history of Alzheimer's dementia, CHF, iron deficiency anemia, B12 deficiency who presents to the emergency department with chief complaint of altered mental status. According to him his mother has underlying dementia and notes that earlier today she attempted to catch old a check at a bank of her that was 3 years old. He noted that the bank notified him of her actions and prompted him to pick her up and bring her here for the evaluation management. He states that he does believe that she is dehydrated and may have a UTI as well. They deny any recent falls or any other injuries but he notes that she is not at her baseline and feels like her dementia is worsening. He states that she does live alone. [facility] Medical History B12 deficiency anemia Syncope and collapse Uses LifeVest defibrillator Nonischemic dilated cardiomyopathy Left ventricular dyssynchrony Chronic systolic (congestive) heart failure Dilated cardiomyopathy Laceration of scalp Nonischemic cardiomyopathy Iron deficiency anemia LBBB (left bundle branch block) CHF (congestive heart failure) Home Medications ?Medication ?Instructions ?Recorded ?Last Taken ?Type cyanocobalamin (vitamin B-12) 500 1,000 mcg PO DAILY supplement 09/06/22 Unknown History mcg tablet ferrous sulfate 325 mg (65 mg 325 mg PO DAILY 09/06/22 Unknown History iron) tablet furosemide 40 mg tablet 40 mg PO DAILY #90 tabs 01/21/23 Unknown Rx sacubitril 24 mg-valsartan 26 mg 1 tab PO BID #60 TABLETS 02/08/24 Unknown Rx tablet (Entresto) carvedilol 3.125 mg tablet 3.125 mg PO BID #180 TABLETS 03/16/24 Unknown Rx Allergy/AdvReac Type Severity Reaction Status Date / Time No Known Allergies Allergy Verified 03/27/24 15:18 Family History Mother Diabetes Surgical History Presence of cardiac resynchronization therapy defibrillator (CLAY HOISTER-D) (08/31/22) History of left heart catheterization (12/28/21) H/O tubal ligation Social History Smoking Status: Never smoker alcohol intake: never substance use type: does not use caffeine: Yes Type: carbonated beverages Number of servings: 1 and coffee Num ap of servings: 3 ROS ROS ED ROS Narrative Constitutional: Denies any fever, chills, headaches, lightheadedness, dizziness Eyes: Denies change in vision double vision blurry vision Cardiovascular: Denies chest pain palpitation Respiratory: Denies coughing wheezing shortness of breath Abdomen: Denies abdominal pain nausea vomiting diarrhea : Denies any urinary symptoms Neurological: Denies numbness, weakness, tingling Skin: Denies rashes or lesions EXAM Physical Exam Narrative Exam Narrative: General: Patient lying in bed rest comfortably did not appear to be in acute distress Head: Atraumatic, normocephalic Eyes: PERRL bilaterally, EOMI bilaterally, no conjunctival injection noted Neck: Soft, supple, trachea midline Cardiovascular: Regular rate and rhythm no murmurs gallops rubs noted Respiratory: Clear to auscultation bilaterally Abdomen: No tenderness palpation, bowel sounds present x 4 Extremities: +4/5 strength noted in the bilateral upper and lower extremities, no pedal edema on exam Neurological: Patient was able to tell me her name she was unaware of where she was nor the year. Skin: Warm, dry, intact Const Vital Signs: 03/27/24 15:18 03/27/24 17:25 Temperature 97.1 F L Temperature Source Temporal Pulse Rate 62 67 Respiratory Rate 18 16 Blood Pressure 168/83 H Blood Pressure Mean 111 Pulse Ox 96 96 Oxygen Delivery Method Room Air Room Air MDM MDM MDM Narrative Medical decision making narrative: Patient is a 79-year-old female who presented to the emergency department chief complaint of altered mental status. Patient will have a workup performed here on the differential diagnosis includes but not limited to intracranial hemorrhage, chronic subdural, worsening dementia, UTI. Once workup is obtained and reviewed she will be reevaluated. Did discuss with son at bedside who is power of state's attorney and states that if she is medically cleared she will need placed into a nursing facility as she cannot live alone anymore. Patient CBC reviewed and is largely unremarkable with no leukocytosis noted white blood count of 5.9, hemoglobin stable 12.8, platelet count was noted be normal at 179, sodium normal 139, potassium normal 3.7, creatinine normal at 0.78. Patient's AST and ALT are 19 and 13 respectively with a normal alk phosphatase of 81. Patient's urinalysis was significant for acute urinary tract infection positive nitrite, 500 leukocyte esterase 50-100 white blood cells with 4+ bacteria. Patient was given a gram Rocephin and urine was sent for culture. Patient's chest x-ray reviewed and showed no acute cardiopulmonary pathology. Patient CT head brain reviewed and showed moderate atrophy and periventricular white matter ischemic changes. Tiny air bubbles within the cavernous sinuses of indeterminate etiology or clinical significance. Patient's EKG reviewed interpreted by myself showed a heart rate of 60 bpm with AV dual paced rhythm. Had multiple family meetings at bedside and after discussion with her children at bedside they are in agreement that she does need placed. Patient will be admitted to the hospital. Discussed case with hospitalist Dr. Jaun stanley who will accept patient for admission. All question concerns answered bedside. Lab Data Labs: Laboratory Results - last 24 hr 03/27/24 16:11 WBC 5.9 RBC 4.64 Hgb 12.8 Hct 40.7 MCV 87.7 MCH 27.6 MCHC 31.4 L RDW Std Deviation 43.2 RDW Coeff of Esme 13.4 Plt Count 179 MPV 9.4 Immature Gran % (Auto) 0.300 Neut % (Auto) 60.2 Lymph % (Auto) 30.2 Treasure % (Auto) 7.6 Eos % (Auto) 1.0 Baso % (Auto) 0.7 Absolute Neuts (auto) 3.6 Absolute Lymphs (auto) 1.78 Nucleated RBC % 0 Sodium 139 Potassium 3.7 Chloride 103 Carbon Dioxide 30.0 Anion Gap 6 BUN 16 Creatinine 0.78 Estim Creat Clear Calc 53.38 Est GFR (MDRD) Af Amer 92 Est GFR (MDRD) Non-Af 76 BUN/Creatinine Ratio 20.5 H Glucose 105 Calcium 9.3 Total Bilirubin 0.60 AST 19 ALT 13 Alkaline Phosphatase 81 Total Protein 6.2 L Albumin 3.5 Globulin 2.7 Albumin/Globulin Ratio 1.3 Urine Color Yellow Urine Clarity Cloudy Urine pH 6.0 Ur Specific Revere 1.025 Urine Protein 30 H Urine Glucose (UA) Normal Urine Ketones 5 H Urine Occult Blood 10 H Urine Nitrite Positive H Urine Bilirubin Negative Urine Urobilinogen 4 H Ur Leukocyte Esterase 500 H Urine RBC 5-10 SEEN Urine WBC 50-100 SEEN Ur Squamous Epith Cells 0-5 SEEN Urine Bacteria 4+ Urine Mucus 0 SEEN Radiography Diagnostic Testing: Clinical Impression(s) from Imaging Studies Brain CT 03/27/24 15:31 IMPRESSION: Moderate atrophy and periventricular white matter ischemic changes. Tiny air bubbles within the cavernous sinuses of indeterminate etiology or clinical significance MRI with and without contrast may be useful for further evaluation if indicated. N.B. : The above Results were Read Back by Conor Alberto MD to Dony Escobedo DO, and understanding confirmed on 03/27/2024 17:19:33 (ET). Electronically Signed: Conor Alberto MD at 17:23 EDT , ADDENDUM: 03/27/24 1730 IMPRESSION: Moderate atrophy and periventricular white matter ischemic changes. Tiny air bubbles within the cavernous sinuses of indeterminate etiology or clinical significance MRI with and without contrast may be useful for further evaluation if indicated. N.B. : The above Results were Read Back by Conor Alberto MD to Dony Escobedo DO, and understanding confirmed on 03/27/2024 17:19:33 (ET). Electronically Signed: Conor Alberto MD at 17:23 EDT , Chest X-Ray 03/27/24 15:50 IMPRESSION: No acute cardiopulmonary pathology. Electronically Signed: Conor Alberto MD at 16:10 EDT , Discharge Plan Triage Chief Complaint: Confusion ED Provider: Dony Escobedo Dx/Rx/DC Orders Clinical Impression: Encephalopathy, Urinary tract infection Prescriptions: No Action ferrous sulfate 325 mg (65 mg iron) tablet 325 mg PO DAILY furosemide 40 mg tablet 40 mg PO DAILY Qty: 90 3RF cyanocobalamin (vitamin B-12) 500 mcg tablet 1,000 mcg PO DAILY Entresto 24-26 mg tablet 1 tab PO BID Qty: 60 3RF carvedilol 3.125 mg tablet 3.125 mg PO BID Qty: 180 3RF Primary Care Provider: Andrea Frazier Referrals: Andrea Frazier MD [Primary Care Provider] - Print Language: Honduran
--- NOTE | 2024-03-27 15:50 | RAD_ITS ---
STUDY: X-RAY CHEST REASON FOR EXAM: Female, 79 years old. ams TECHNIQUE: AP portable COMPARISON: December 25, 2021 FINDINGS: The lungs are clear and expanded. There is no demonstrated pleural abnormality. Normal size heart. Normal mediastinum and kourtney. Normal visualized pulmonary arteries. Normal visualized aortic arch and descending thoracic aorta. Biventricular pacer noted on the left with electrodes in satisfactory position. Dorsal spine demonstrates mild scoliosis and degenerative change. Normal visualized ribs, and clavicles. There are degenerative changes of the shoulder joints There is no demonstrated abnormality of the visualized soft tissue structures of the upper abdomen. RAD/Chest 1 View (Portable) IMPRESSION: No acute cardiopulmonary pathology. Electronically Signed: Conor Alberto MD at 16:10 EDT ,
[2024-03-27] MEDS: 0.9% Normal Saline (1000mL) 1,000 ML 999 ML IV (16:04)
[2024-03-27 16:18] LABS: Mucous, Urine 0 SEEN /hpf (<or=2+)
[2024-03-27 16:20] LABS: Color, Urine Yellow (Yellow); Glucose, Dipstick Normal (Normal); Ketone-Dipstick 5 mg/dl (Negative); Leukocyte Esterase-Dipstick 500 /ul (Negative); Nitrite-Dipstick Positive (Negative); Occult Blood-Urine 10 /ul (Negative); Protein-Dipstick 30 mg/dl (Negative); Specific Gravity, Urine 1.025 (1.002-1.030); Urine Bilirubin Dipstick Negative (Negative); Urine Clarity Cloudy (Clear); Urine Urobilinogen 4 mg/dl (Normal)
[2024-03-27 16:22] LABS: Absolute Lymphocyte Count 1.78 X10^3/uL (0.83-4.51); Absolute Neutrophil Count 3.6 X10^3/uL (2.0-7.7); Basophil# 0.04 X10^3/uL; Basophil% 0.7 % (0-1); Eosinophil# 0.06 X10^3/uL; Hematocrit 40.7 % (37-47); Hemoglobin 12.8 g/dL (12.0-15.0); Lymphocyte # 1.78 X10^3/ul (0.83-4.51); Lymphocyte % 30.2 % (19-41); Mean Corp Hgb Conc 31.4 g/dL (32-36); Mean Corpuscular Hgb 27.6 pg (27.0-32.0); Mean Corpuscular Volume 87.7 fL (81-99); Mean Platelet Vol. 9.4 fl (6.2-12.0); Monocyte# 0.45 X10^3/uL; Monocyte% 7.6 % (0-10); NRBC Flagged by Analyzer 0 % (0-5); Neutrophil # 3.55 X10^3/uL (2.7-7.7); Neutrophil % 60.2 % (47-70); Platelet Count 179 K/mm3 (150-450); RBC Distribution Width CV 13.4 % (11.6-14.6); RBC Distribution Width SD 43.2 fl (35.1-43.9); Red Blood Count 4.64 M/mm3 (4.2-5.4); White Blood Count 5.9 K/mm3 (4.4-11.0)
[2024-03-27 16:34] LABS: Bacteria 4+ /hpf (None Seen); Red Blood Cells-Urine 5-10 SEEN /hpf (0-5); White Blood Cells 50-100 SEEN /hpf (0-5)
[2024-03-27 16:35] LABS: Squamous Epithelial Cells - UA 0-5 SEEN /hpf (5-10)
[2024-03-27 16:42] LABS: ALB/GLOB Ratio 1.3 RATIO (0.9-2.4); AST(SGOT) 19 U/L (15-37); Alanine Aminotransfer ALT/SGPT 13 U/L (13-56); Albumin, Serum 3.5 g/dL (3.2-5.0); Alkaline Phosphatase 81 U/L (45-117); Anion Gap 6 (5-15); BUN 16 mg/dL (7-18); BUN/Creat Ratio 20.5 RATIO (10-20); Calcium,Total 9.3 mg/dL (8.5-10.1); Chloride 103 mmol/L (98-107); Creatinine, Serum 0.78 mg/dL (0.55-1.02); EST Glomerular Filtration Rate 76 mL/min (>60); Est Glom Filt Rate - Afr Amer 92 mL/min (>60); Estimated Creatinine Clearance 53.38 ml/min; Globulin 2.7 g/dL (2.2-4.2); Glucose 105 mg/dL (74-106); Potassium 3.7 mmol/L (3.5-5.1); Protein, Total 6.2 g/dL (6.4-8.2); Sodium Level 139 mmol/L (136-145)
[2024-03-27] MEDS: Ceftriaxone 1 GM/50 ML BAG IV (17:21)
[2024-03-27 17:25] VITALS: BP 168/83; PULSE 67; RESP 16; O2SAT 96
[2024-03-27 18:55] VITALS: BP 144/89; PULSE 76; RESP 16; TEMP 36.8; O2SAT 96
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
[2024-03-27 19:35] VITALS: BMI 21.9
[2024-03-27 19:41] VITALS: BP 154/69; PULSE 67; RESP 17; TEMP 36.9; O2SAT 96
[2024-03-27] MEDS: QUEtiapine 25 MG Tablet 50 MG PO (21:32)
[2024-03-27] MEDS: Heparin Injection (Vial) 5,000 UNIT/ML VIAL 5000 UNIT SC (21:32)
[2024-03-27] MEDS: Carvedilol 3.125 MG TABLET PO (21:32)
[2024-03-27] MEDS: Donepezil HCl 10 MG Tablet PO (21:32)
[2024-03-27] MEDS: SACUBITRIL/VALSARTAN 24/26 MG TABLET 1 EACH PO (21:32)
[2024-03-28 03:07] VITALS: BP 124/69; PULSE 78; RESP 16; TEMP 36.5; O2SAT 98
[2024-03-28 06:03] LABS: Absolute Lymphocyte Count 1.92 X10^3/uL (0.83-4.51); Absolute Neutrophil Count 2.9 X10^3/uL (2.0-7.7); Basophil# 0.05 X10^3/uL; Basophil% 0.9 % (0-1); Eosinophils% 1.8 % (0-5); Hematocrit 38.4 % (37-47); Hemoglobin 12.3 g/dL (12.0-15.0); Lymphocyte # 1.92 X10^3/ul (0.83-4.51); Mean Corpuscular Hgb 27.8 pg (27.0-32.0); Mean Corpuscular Volume 86.9 fL (81-99); Mean Platelet Vol. 9.1 fl (6.2-12.0); Monocyte# 0.51 X10^3/uL; Monocyte% 9.3 % (0-10); NRBC Flagged by Analyzer 0 % (0-5); Neutrophil % 52.8 % (47-70); Platelet Count 154 K/mm3 (150-450); RBC Distribution Width CV 13.3 % (11.6-14.6); RBC Distribution Width SD 42.4 fl (35.1-43.9); Red Blood Count 4.42 M/mm3 (4.2-5.4); White Blood Count 5.5 K/mm3 (4.4-11.0)
[2024-03-28 07:59] VITALS: BP 145/89; PULSE 66; RESP 12; TEMP 36.6; O2SAT 96
--- NOTE | 2024-03-28 08:31 | NURSING ---
spoke with Dariana daughter who states she is also HPOA, she provided updated phone number and states she would like to be primary contact for pt, however it is okay to give information to all the siblings listed on demographic sheet as well.
--- NOTE | 2024-03-28 09:42 | CASEMGMT ---
Discharge Planning A list of SNF providers including quality and resource use data and consistent with the patient's preferred geographic region, medical needs, and insurance network was created in CarePort Guide.? This list was provided to the SW. Suly Bella Discharge Planning Asst.
[2024-03-28] MEDS: Carvedilol 3.125 MG TABLET PO ×2 (10:00→20:02)
[2024-03-28] MEDS: Heparin Injection (Vial) 5,000 UNIT/ML VIAL 5000 UNIT SC ×2 (10:00→20:03)
[2024-03-28] MEDS: Furosemide 20 MG Tablet PO (10:00)
[2024-03-28] MEDS: 0.9% Saline Lock 10 ML Syringe IV (10:01)
[2024-03-28] MEDS: Ceftriaxone 1 GM/50 ML BAG IV (10:01)
[2024-03-28] MEDS: 0.9% Normal Saline (250mL Bag) 250 ML 15 ML IV (10:02)
[2024-03-28] MEDS: SACUBITRIL/VALSARTAN 24/26 MG TABLET 1 EACH PO ×2 (10:03→20:02)
--- NOTE | 2024-03-28 14:00 | PN_ITS ---
Subjective Subjective Patient seen and examined. Her granddaughter was by her bedside. She had no active complaints. Patient was however confused could not tell me where she was. She does have underlying dementia and according to the granddaughter she apparently tried forging a check in her late 's name at the bank and so family decided that they were not comfortable with her living alone anymore. She has remained hemodynamically stable. Objective Data Objective Data Vital Signs: Vital Signs Temp Pulse Resp BP Pulse Ox O2 Del Method 97.9 F 66 12 145/89 H 96 Room Air 03/28/24 07:59 03/28/24 07:59 03/28/24 07:59 03/28/24 07:59 03/28/24 07:59 03/28/24 07:59 Oxygen Delivery Method Room Air Weight: 136 lb 0.403 oz Body Mass Index (BMI) 21.9 Intake & Output: Intake and Output for Last 24 Hours 03/26/24 03/27/24 03/28/24 23:59 23:59 23:59 Intake Total 1050 / 1050 74.00 / 74.00 Balance 1050 / 1050 74.00 / 74.00 Lab / Micro Data 03/28/24 05:40 03/27/24 16:11 Labs: Laboratory Results - last 24 hr 03/27/24 16:11: WBC 5.9, RBC 4.64, Hgb 12.8, Hct 40.7, MCV 87.7, MCH 27.6, MCHC 31.4 L, RDW Std Deviation 43.2, RDW Coeff of Esme 13.4, Plt Count 179, MPV 9.4, Immature Gran % (Auto) 0.300, Neut % (Auto) 60.2, Lymph % (Auto) 30.2, [place] % (Auto) 7.6, Eos % (Auto) 1.0, Baso % (Auto) 0.7, Absolute Neuts (auto) 3.6, Absolute Lymphs (auto) 1.78, Nucleated RBC % 0, Sodium 139, Potassium 3.7, Chloride 103, Carbon Dioxide 30.0, Anion Gap 6, BUN 16, Creatinine 0.78, Estim Creat Clear Calc 53.38, Est GFR (MDRD) Af Amer 92, Est GFR (MDRD) Non-Af 76, B UN/Creatinine Ratio 20.5 H, Glucose 105, Calcium 9.3, Total Bilirubin 0.60, AST 19, ALT 13, Alkaline Phosphatase 81, Total Protein 6.2 L, Albumin 3.5, Globulin 2.7, Albumin/Globulin Ratio 1.3, Urine Color Yellow, Urine Clarity Cloudy, Urine pH 6.0, Ur Specific [place] 1.025, Urine Protein 30 H, Urine Glucose (UA) Normal, Urine Ketones 5 H, Urine Occult Blood 10 H, Urine Nitrite Positive H, Urine Bilirubin Negative, Urine Urobilinogen 4 H, Ur Leukocyte Esterase 500 H, Urine RBC 5-10 SEEN, Urine WBC 50-100 SEEN, Ur Squamous Epith Cells 0-5 SEEN, Urine Bacteria 4+, Urine Mucus 0 SEEN 03/28/24 05:40: WBC 5.5, RBC 4.42, Hgb 12.3, Hct 38.4, MCV 86.9, MCH 27.8, MCHC 32.0, RDW Std Deviation 42.4, RDW Coeff of Esme 13.3, Plt Count 154, MPV 9.1, Immature Gran % (Auto) 0.200, Neut % (Auto) 52.8, Lymph % (Auto) 35.0, [place] % (Auto) 9.3, Eos % (Auto) 1.8, Baso % (Auto) 0.9, Absolute Neuts (auto) 2.9, Absolute Lymphs (auto) 1.92, Nucleated RBC % 0 Micro: Microbiology 03/27/24 17:20 Urine, Clean Catch Urine Culture - Preliminary Presumptive E. coli Radiography Diagnostic Testing: Radiology Impression Brain CT 03/27/24 15:31 IMPRESSION: Moderate atrophy and periventricular white matter ischemic changes. Tiny air bubbles within the cavernous sinuses of indeterminate etiology or clinical significance MRI with and without contrast may be useful for further evaluation if indicated. N.B. : The above Results were Read Back by Conor Alberto MD to Dony Escobedo DO, and understanding confirmed on 03/27/2024 17:19:33 (ET). Electronically Signed: Conor Alberto MD at 17:23 EDT , ADDENDUM: 03/27/24 1730 IMPRESSION: Moderate atrophy and periventricular white matter ischemic changes. Tiny air bubbles within the cavernous sinuses of indeterminate etiology or clinical significance MRI with and without contrast may be useful for further evaluation if indicated. N.B. : The above Results were Read Back by Conor Alberto MD to Dony Escobedo DO, and understanding confirmed on 03/27/2024 17:19:33 (ET). Electronically Signed: Conor Alberto MD at 17:23 EDT , Chest X-Ray 03/27/24 15:50 IMPRESSION: No acute cardiopulmonary pathology. Electronically Signed: Conor Alberto MD at 16:10 EDT , Physical Exam Const alert and no apparent distress General Appearance: cooperative Orientation / Consciousness: confused HEENT normocephalic and head/scalp atraumatic Neck no lymphadenopathy, supple and no JVD Lymph Lymphatic: no lymphadenopathy noted Resp normal respiratory effort, normal air movement and clear to auscultation bilaterally Cardio regular rate, regular rhythm, S1 normal heart sound, S2 normal heart sound and no murmurs GI normal to inspection, nondistended, normoactive bowel sounds, soft to palpation, non-tender and non-distended Extremity normal capillary refill, no clubbing, cyanosis or edema and no calf tenderness General Extremity: no tenderness to palpation of joints or extremities Skin General Skin Exam: no breakdown Neuro CN's II-XII intact bilaterally and no focal motor deficits Motor Exam: strength 5/5 throughout Psych Psych Narrative: confused, alert and oriented only to self. Assessment & Plan Assessment/Plan (1) Urinary tract infection: (2) Encephalopathy: (3) Alzheimer dementia: PLAN: Plan #UTI * Currently on IV Rocephin. Urine cultures growing presumptive E. coli * Encourage oral hydration. PT OT on board. #Acute encephalopathy in the setting of dementia * Patient is pleasantly confused and only knows her name but does not know the year, where she is at the CT she is in. * Family wants patient to be placed. * Case management on board. * on aricept and seroquel for dementia * #Nonischemic dilated cardiomyopathy * stable. * has defibrillator in place * on carvedilol and entresto * #HFrEF: not in exacerbation. On furosemide, carvedilol and entresto. DVT prophylaxis: heparin * Disposition: Needs placement. Case management on board to help facilitate discharge. Charges/Coding Visit Charges Inpatient E&M: 62719 Subs Hosp L2
--- NOTE | 2024-03-28 14:47 | CASEMGMT ---
Addendum entered by Suly Bella 03/28/24 16:10: List resent to [email or web address] Suly Bella DC Planning Asst. Original Note: Discharge Planning A list of SNF's with secured units including quality and resource use data and consistent with the patient's preferred geographic region, medical needs, and insurance network were provided via email ([email or web address]) from the CarePort Guide link. Suly Bella, Discharge Planning Asst.
--- NOTE | 2024-03-28 15:09 | CASEMGMT ---
Spoke with patients daughter/POA (Dariana) to complete LAW form. LAW form explained to daughter who voiced understanding. Original form placed in pt?s chart and copy placed in patients room. Suly Bella, Discharge Planning Asst
[2024-03-28 15:24] VITALS: BP 110/66; PULSE 69; RESP 16; TEMP 36.6; O2SAT 97
--- NOTE | 2024-03-28 16:07 | CASEMGMT ---
Social Work DARSHAN received call from pt's dgt Dariana. Dariana reports she and her brother Heidi Zaidi ([phone]) are co HCPOA. Dariana agreeable to bring documents in. Heidi is pt's financial POA. Dariana states that pt lives at home alone and is no longer safe to live at home alone due to dementia. Dariana sites that pt is not taking medications, not bathing, has used the oven/stove unsafely, pt recently cleaned the kitchen with vegetable oil and put vicks vapor rub in her eyes confusing it for eye drops. Pt does not remember children's names and no longer remembers how to read. Family feels pt will need prison placement in a secure unit at [facility]. Pt was evaluated by PT/OT and pt ambulated without difficulty. Therefore, pt will not qualify for skilled level of care under insurance benefit. DARSHAN explained this to Dariana who is understanding. SW inquired about private pay at [facility] however, pt does not have the finances for this. DARSHAN discussed Medicaid and Dariana is agreeable to apply for Medicaid for prison placement. Referral made to Janelle at [facility] and SW requested she contact pt's son Heidi to assist with Medicaid application. A list of SNF providers including quality and resource use data and consistent with the patient?s preferred geographic region, medical needs, and insurance network were provided via the [employer] Guide Link. Pt's dgt is in agreeement that pt will require a secure unit. Dgts preferred facility is [facility]. SW will follow up for referral for [facility]. Plan: Apply for [facility] medicaid and prison placement. REDDY Braun
[2024-03-28] MEDS: Haloperidol Lactate 5 MG/ML Vial 1 MG IM (18:30)
[2024-03-28] MEDS: Donepezil HCl 10 MG Tablet PO (20:02)
[2024-03-28] MEDS: QUEtiapine 25 MG Tablet 50 MG PO (20:02)
[2024-03-28 20:12] VITALS: BP 159/87; PULSE 64; RESP 16; TEMP 36.1; O2SAT 96
[2024-03-29 05:45] VITALS: BP 157/81; PULSE 62; RESP 16; TEMP 36.1; O2SAT 97
[2024-03-29 07:25] LABS: Absolute Lymphocyte Count 1.32 X10^3/uL (0.83-4.51); Absolute Neutrophil Count 2.7 X10^3/uL (2.0-7.7); Basophil# 0.03 X10^3/uL; Basophil% 0.7 % (0-1); Eosinophil# 0.08 X10^3/uL; Eosinophils% 1.7 % (0-5); Hematocrit 42.2 % (37-47); Hemoglobin 13.9 g/dL (12.0-15.0); Lymphocyte # 1.32 X10^3/ul (0.83-4.51); Lymphocyte % 28.6 % (19-41); Mean Corp Hgb Conc 32.9 g/dL (32-36); Mean Corpuscular Hgb 28.4 pg (27.0-32.0); Mean Corpuscular Volume 86.3 fL (81-99); Mean Platelet Vol. 9.4 fl (6.2-12.0); Monocyte# 0.43 X10^3/uL; Monocyte% 9.3 % (0-10); NRBC Flagged by Analyzer 0 % (0-5); Neutrophil # 2.73 X10^3/uL (2.7-7.7); Neutrophil % 59.3 % (47-70); Platelet Count 162 K/mm3 (150-450); RBC Distribution Width CV 13.2 % (11.6-14.6); RBC Distribution Width SD 41.4 fl (35.1-43.9); Red Blood Count 4.89 M/mm3 (4.2-5.4); White Blood Count 4.6 K/mm3 (4.4-11.0)
[2024-03-29 08:00] LABS: Anion Gap 5 (5-15); BUN 13 mg/dL (7-18); BUN/Creat Ratio 22.8 RATIO (10-20); Chloride 107 mmol/L (98-107); Creatinine, Serum 0.57 mg/dL (0.55-1.02); EST Glomerular Filtration Rate 109 mL/min (>60); Est Glom Filt Rate - Afr Amer 131 mL/min (>60); Estimated Creatinine Clearance 53.38 ml/min; Glucose 117 mg/dL (74-106); Potassium 3.7 mmol/L (3.5-5.1); Sodium Level 140 mmol/L (136-145)
[2024-03-29 09:46] VITALS: BP 120/60; PULSE 78; RESP 18; TEMP 36.6; O2SAT 100
--- NOTE | 2024-03-29 09:46 | CASEMGMT ---
Discharge Planning Referral sent to [facility] via [facility]. Suly Bella DC Planning Asst.
[2024-03-29] MEDS: SACUBITRIL/VALSARTAN 24/26 MG TABLET 1 EACH PO ×2 (09:52→21:05)
[2024-03-29] MEDS: Carvedilol 3.125 MG TABLET PO ×2 (09:52→21:05)
[2024-03-29] MEDS: Furosemide 20 MG Tablet PO ×2 (09:52→09:53)
[2024-03-29] MEDS: Heparin Injection (Vial) 5,000 UNIT/ML VIAL 5000 UNIT SC ×2 (09:52→21:05)
[2024-03-29] MEDS: Ceftriaxone 1 GM/50 ML BAG IV (09:58)
--- NOTE | 2024-03-29 13:05 | PN_ITS ---
Subjective Subjective Patient seen and examined. She had no active complaints. She remains confused. She wants to be discharged home today. Review of systems is otherwise negative. Objective Data Objective Data Vital Signs: Vital Signs Temp Pulse Resp BP Pulse Ox O2 Del Method 97.9 F 78 18 120/60 100 Room Air 03/29/24 09:46 03/29/24 09:46 03/29/24 09:46 03/29/24 09:46 03/29/24 09:46 03/29/24 09:46 Oxygen Delivery Method Room Air Weight: 136 lb 0.403 oz Body Mass Index (BMI) 21.9 Intake & Output: Intake and Output for Last 24 Hours 03/27/24 03/28/24 03/29/24 23:59 23:59 23:59 Intake Total 1050 / 1050 74.00 / 74.00 50 / 50 Balance 1050 / 1050 74.00 / 74.00 50 / 50 Lab / Micro Data 03/29/24 07:04 03/29/24 07:04 Labs: Laboratory Results - last 24 hr 03/29/24 07:04: WBC 4.6, RBC 4.89, Hgb 13.9, Hct 42.2, MCV 86.3, MCH 28.4, MCHC 32.9, RDW Std Deviation 41.4, RDW Coeff of Esme 13.2, Plt Count 162, MPV 9.4, Immature Gran % (Auto) 0.400, Neut % (Auto) 59.3, Lymph % (Auto) 28.6, [place] % (Auto) 9.3, Eos % (Auto) 1.7, Baso % (Auto) 0.7, Absolute Neuts (auto) 2.7, Absolute Lymphs (auto) 1.32, Nucleated RBC % 0, Sodium 140, Potassium 3.7, Chloride 107, Carbon Dioxide 28.0, Anion Gap 5, BUN 13, Creatinine 0.57, Estim Creat Clear Calc 53.38, Est GFR (MDRD) Af Amer 131, Est GFR (MDRD) Non-Af 109, B UN/Creatinine Ratio 22.8 H, Glucose 117 H, Calcium 9.0 Micro: Microbiology 03/27/24 17:20 Urine, Clean Catch Urine Culture - Final Presumptive E. coli Physical Exam Const alert, no apparent distress, average body habitus and healthy appearing General Appearance: cooperative, well kempt and well developed Orientation / Consciousness: confused HEENT normocephalic, head/scalp atraumatic, hearing grossly normal bilaterally and moist oral mucous membranes Eyes PERRL, EOMs intact bilaterally and conjunctivae normal Neck no lymphadenopathy, supple, no JVD, thyroid normal and no carotid bruits General: trachea midline Lymph Lymphatic: no lymphadenopathy noted Resp normal respiratory effort, normal air movement, no retractions, no use of accessory muscles and clear to auscultation bilaterally Auscultation: Negative for rales, rhonchi or wheezes Cardio regular rate, regular rhythm, S1 normal heart sound, S2 normal heart sound, no murmurs, no rub and no gallops GI normal to inspection, nondistended, normoactive bowel sounds, soft to palpation, non-tender and non-distended Extremity normal capillary refill, no clubbing, cyanosis or edema and no calf tenderness General Extremity: no tenderness to palpation of joints or extremities Skin no rashes or lesions noted General Skin Exam: no breakdown Neuro CN's II-XII intact bilaterally, moves all extremities, no focal motor deficits and no sensory deficits noted Neuro Narrative: remains confused. Sensorium / Orientation: awake Speech: speech normal Motor Exam: strength 5/5 throughout Psych Psych Narrative: confused Assessment & Plan Assessment/Plan (1) Urinary tract infection: (2) Encephalopathy: (3) Alzheimer dementia: PLAN: Plan #UTI * Currently on IV Rocephin. Urine cultures growing presumptive E. coli * Encourage oral hydration. PT OT on board. * switch to PO omnicef based on sensitivities. #Acute encephalopathy in the setting of dementia * Patient is pleasantly confused and only knows her name but does not know the year, where she is at the CT she is in. * Family wants patient to be placed. * Case management on board. * on aricept and seroquel for dementia * #Nonischemic dilated cardiomyopathy * stable. * has defibrillator in place * on carvedilol and entresto * #HFrEF: not in exacerbation. On furosemide, carvedilol and entresto. DVT prophylaxis: heparin * Disposition: Needs placement. Case management on board to help facilitate discharge. Charges/Coding Visit Charges Inpatient E&M: 86039 Subs Hosp L2
[2024-03-29 14:00] VITALS: BP 122/56; PULSE 62; RESP 18; TEMP 36.6; O2SAT 98
--- NOTE | 2024-03-29 16:45 | CASEMGMT ---
Social Work SW spoke with Janelle at [facility] and Medicaid pending #[id number]. Referral has been made to [facility] and they are able to accept pt. Phone call to pt's son Heidi and Dgt Dariana. Dariana states family has not yet told pt she cannot return home at this time but will need ECF. Family plans to meet with pt this evening and inform her of discharge plan. Pt can discharge to [facility] tomorrow. Plan: [facility]. REDDY Braun
[2024-03-29] MEDS: Cefdinir 300 MG Capsule PO (21:05)
[2024-03-29] MEDS: QUEtiapine 25 MG Tablet 50 MG PO (21:05)
[2024-03-29] MEDS: Donepezil HCl 10 MG Tablet PO (21:05)
[2024-03-29 21:52] VITALS: BP 157/82; PULSE 67; RESP 16; TEMP 36.1; O2SAT 96
[2024-03-30 06:00] VITALS: BP 132/72; PULSE 66; RESP 16; TEMP 36.1; O2SAT 96
[2024-03-30 06:47] LABS: Absolute Lymphocyte Count 1.55 X10^3/uL (0.83-4.51); Absolute Neutrophil Count 3.9 X10^3/uL (2.0-7.7); Basophil# 0.03 X10^3/uL; Basophil% 0.5 % (0-1); Eosinophil# 0.07 X10^3/uL; Eosinophils% 1.2 % (0-5); Hematocrit 41.4 % (37-47); Hemoglobin 13.3 g/dL (12.0-15.0); Lymphocyte # 1.55 X10^3/ul (0.83-4.51); Lymphocyte % 25.5 % (19-41); Mean Corp Hgb Conc 32.1 g/dL (32-36); Mean Corpuscular Hgb 27.9 pg (27.0-32.0); Mean Corpuscular Volume 86.8 fL (81-99); Mean Platelet Vol. 9.6 fl (6.2-12.0); Monocyte# 0.56 X10^3/uL; Monocyte% 9.2 % (0-10); NRBC Flagged by Analyzer 0 % (0-5); Neutrophil # 3.85 X10^3/uL (2.7-7.7); Neutrophil % 63.3 % (47-70); Platelet Count 182 K/mm3 (150-450); RBC Distribution Width CV 13.5 % (11.6-14.6); RBC Distribution Width SD 42.8 fl (35.1-43.9); Red Blood Count 4.77 M/mm3 (4.2-5.4); White Blood Count 6.1 K/mm3 (4.4-11.0)
[2024-03-30 07:56] LABS: Anion Gap 5 (5-15); BUN 19 mg/dL (7-18); BUN/Creat Ratio 29.6 RATIO (10-20); Calcium,Total 9.5 mg/dL (8.5-10.1); Chloride 104 mmol/L (98-107); Creatinine, Serum 0.64 mg/dL (0.55-1.02); EST Glomerular Filtration Rate 95 mL/min (>60); Est Glom Filt Rate - Afr Amer 115 mL/min (>60); Estimated Creatinine Clearance 53.38 ml/min; Glucose 122 mg/dL (74-106); Potassium 3.4 mmol/L (3.5-5.1); Sodium Level 137 mmol/L (136-145)
[2024-03-30 09:08] VITALS: BP 107/60; PULSE 84; RESP 18; TEMP 36.3; O2SAT 97
[2024-03-30] MEDS: Cyanocobalamin 500 MCG Tablet 1000 MCG PO (09:19)
[2024-03-30] MEDS: Heparin Injection (Vial) 5,000 UNIT/ML VIAL 5000 UNIT SC (09:19)
[2024-03-30] MEDS: Furosemide 40 MG Tablet PO (09:19)
[2024-03-30] MEDS: SACUBITRIL/VALSARTAN 24/26 MG TABLET 1 EACH PO (09:19)
[2024-03-30] MEDS: Carvedilol 3.125 MG TABLET PO (09:19)
[2024-03-30] MEDS: Cefdinir 300 MG Capsule PO (09:19)
--- NOTE | 2024-03-30 12:58 | TREXTCAR_ITS ---
Diet Diet Order/Speech Therapy: 03/27/24 19:20 Diet: Regular - General Food consistency:: Regular Liquid Consistency:: Regular/Thin Routine Orders/Code Status Enema Type: Fleetz Enema Frequency: Daily PRN Suppository Type: Dulcolax 10mg Suppository Frequency: Daily PRN O2 Frequency: PRN Keep PO Greater than or Equal to (%): 90 Therapies Weight Bearing: Weight bearing as tolerated Physical Therapy: Eval and Treat Occupational Therapy: Eval and Treat Problem/Diagnosis (1) Urinary tract infection: Status: Acute Code(s): N39.0 - Urinary tract infection, site not specified (2) Encephalopathy: Status: Acute Code(s): G93.40 - Encephalopathy, unspecified (3) Alzheimer dementia: Status: Acute Code(s): G30.9 - Alzheimer's disease, unspecified; F02.80 - Dementia in other diseases classified elsewhere, unspecified severity, without behavioral disturbance, psychotic disturbance, mood disturbance, and anxiety Plan #UTI * Currently on IV Rocephin. Urine cultures growing presumptive E. coli * Encourage oral hydration. PT OT on board. * switch to PO omnicef based on sensitivities. #Acute encephalopathy in the setting of dementia * Patient is pleasantly confused and only knows her name but does not know the year, where she is at the CT she is in. * Family wants patient to be placed. * Case management on board. * on aricept and seroquel for dementia * #Nonischemic dilated cardiomyopathy * stable. * has defibrillator in place * on carvedilol and entresto * #HFrEF: not in exacerbation. On furosemide, carvedilol and entresto. DVT prophylaxis: heparin * Disposition: Needs placement. Case management on board to help facilitate discharge. Allergies/Procedures Done in Hospital Allergies No Known Allergies Allergy (Verified 03/27/24 15:18) Procedures: None Type of Care/Length of Stay Estimated LOS: Convalescent Care Less Than 30 days Type of Care Needed: Skilled Rehab Potential: Fair Prognosis: Fair Additional Orders/Day of Discharge Day of Discharge: 03/30/24 Discharge Plan Admission Admit Date/Time: 03/27/24 18:39 Primary Reason for Your Visit: UTI, encephalopathy Attending Provider: Cristina Ghosh Primary Care Provider: Andrea Frazier Consulting Providers: Rafal Hernandez Instructions Patient Instructions: ED Cystitis Female Adult, ED UTI Fem Ch Discharge Orders/Prescriptions Prescriptions: New cefdinir 300 mg Capsule 300 mg PO Q12 Qty: 8 0RF Continued furosemide 40 mg tablet 40 mg PO DAILY Qty: 90 3RF cyanocobalamin (vitamin B-12) 500 mcg tablet 1,000 mcg PO DAILY donepezil 10 mg tablet 10 mg PO QHS quetiapine 50 mg tablet 50 mg PO QHS Entresto 24-26 mg tablet 1 tab PO BID Qty: 60 3RF carvedilol 3.125 mg tablet 3.125 mg PO BID Qty: 180 3RF Referrals / Follow Up: Andrea Frazier MD [Primary Care Provider] - Within 1 Week Disposition Disposition (needs filled in before D/C Order can be placed[facility]
--- NOTE | 2024-03-30 12:59 | DS.PCM_ITS ---
Providers Date of Admission: 03/27/24 Date of Discharge: 03/30/24 Primary Care Physician: Dr. Andrea Frazier MD Reason For Visit: CYSTITIS, ENCEPHALOPATHY, DEMENTIA Diagnosis Discharge Diagnosis (1) Urinary tract infection: Status: Acute Code(s): N39.0 - Urinary tract infection, site not specified (2) Encephalopathy: Status: Acute Code(s): G93.40 - Encephalopathy, unspecified (3) Alzheimer dementia: Status: Acute Code(s): G30.9 - Alzheimer's disease, unspecified; F02.80 - Dementia in other diseases classified elsewhere, unspecified severity, without behavioral disturbance, psychotic disturbance, mood disturbance, and anxiety Plan #UTI * Currently on IV Rocephin. Urine cultures growing presumptive E. coli * Encourage oral hydration. PT OT on board. * switch to PO omnicef based on sensitivities. #Acute encephalopathy in the setting of dementia * Patient is pleasantly confused and only knows her name but does not know the year, where she is at the CT she is in. * Family wants patient to be placed. * Case management on board. * on aricept and seroquel for dementia * #Nonischemic dilated cardiomyopathy * stable. * has defibrillator in place * on carvedilol and entresto * #HFrEF: not in exacerbation. On furosemide, carvedilol and entresto. DVT prophylaxis: heparin * Disposition: Needs placement. Case management on board to help facilitate discharge. Medications at Discharge Home Medications cyanocobalamin (vitamin B-12) 500 mcg tablet 1,000 mcg PO DAILY supplement 09/06/22 furosemide 40 mg tablet 40 mg PO DAILY water pill #90 tabs 01/21/23 sacubitril 24 mg-valsartan 26 mg tablet (Entresto) 1 tab PO BID #60 TABLETS 02/08/24 carvedilol 3.125 mg tablet 3.125 mg PO BID heart #180 TABLETS 03/16/24 donepezil 10 mg tablet 10 mg PO QHS dementia 03/27/24 quetiapine 50 mg tablet 50 mg PO QHS mood 03/27/24 cefdinir 300 mg capsule 300 mg PO Q12 #8 caps 03/30/24 Hospital Course Operations None Procedures None Summary of Care Provided Minutes Spent on Discharge: 47 Hospital Course: Patient is a 79-year-old female with past medical history as outlined was admitted through the ED on 03/27/2024 with a complaint of increased confusion. She has a baseline history of dementia and lives by herself. However on the day she was brought in she went to the bank and for today checking the name of her late . Family therefore brought her into the ED because of a concern about her ability to live alone and perform her functions of daily living. On admission labs were remarkable for evidence of UTI on the urinalysis. SHe was admitted and managed for UTI and encephalopathy in the setting of dementia. She was started on IV ceftriaxone. Urine culture grew E.coli. Based on sensitivities, she was switched to p.o. cefdinir. [facility] due to her worsening dementia. She was discharged to [place] [id number] on 03/30/2024. She was discharged with a prescription for p.o. cefdinir 300 mg twice daily for 4 days to complete a 7-day course of antibiotics. She is to follow-up with her PCP within 1 to 2 weeks. Patient seen and examined prior to discharge. She had no active complaints and had an uneventful night. Review of systems otherwise negative. Labs and vitals reviewed. Home medication reviewed and reconciled. Physical Exam Const alert, no apparent distress and average body habitus Constitutional Narrative: patient confused General Appearance: well kempt and well developed Orientation / Consciousness: awake HEENT normocephalic, head/scalp atraumatic, hearing grossly normal bilaterally and moist oral mucous membranes Eyes PERRL, EOMs intact bilaterally and conjunctivae normal Neck no lymphadenopathy, supple, no JVD, thyroid normal and no carotid bruits General: trachea midline Lymph Lymphatic: no lymphadenopathy noted Resp normal respiratory effort, normal air movement, no retractions, no use of accessory muscles and clear to auscultation bilaterally Auscultation: Negative for rales, rhonchi or wheezes Cardio regular rate, regular rhythm, S1 normal heart sound, S2 normal heart sound, no murmurs, no rub and no gallops GI normal to inspection, nondistended, normoactive bowel sounds, soft to palpation, non-tender and non-distended Extremity normal to inspection, full ROM, normal capillary refill, no clubbing, cyanosis or edema and no calf tenderness General Extremity: no tenderness to palpation of joints or extremities Skin no rashes or lesions noted General Skin Exam: no breakdown Neuro CN's II-XII intact bilaterally, moves all extremities, no focal motor deficits and no sensory deficits noted Neuro Narrative: remains confused. Sensorium / Orientation: awake Speech: speech normal Motor Exam: strength 5/5 throughout Psych affect normal Psych Narrative: confused Weight / BMI Weight Weight: 136 lb 0.403 oz Body Mass Index (BMI) 21.9 ABG / Lab / Microbiology Data 03/30/24 06:18 03/30/24 06:18 Laboratory: Laboratory Results - last 24 hr 03/30/24 06:18: WBC 6.1, RBC 4.77, Hgb 13.3, Hct 41.4, MCV 86.8, MCH 27.9, MCHC 32.1, RDW Std Deviation 42.8, RDW Coeff of Esme 13.5, Plt Count 182, MPV 9.6, Immature Gran % (Auto) 0.300, Neut % (Auto) 63.3, Lymph % (Auto) 25.5, Walker % (Auto) 9.2, Eos % (Auto) 1.2, Baso % (Auto) 0.5, Absolute Neuts (auto) 3.9, Absolute Lymphs (auto) 1.55, Nucleated RBC % 0, Sodium 137, Potassium 3.4 L, Chloride 104, Carbon Dioxide 28.0, Anion Gap 5, BUN 19 H, Creatinine 0.64, Estim Creat Clear Calc 53.38, Est GFR (MDRD) Af Amer 115, Est GFR (MDRD) Non-Af 95, B UN/Creatinine Ratio 29.6 H, Glucose 122 H, Calcium 9.5 Microbiology: Microbiology 03/27/24 17:20 Urine, Clean Catch Urine Culture - Final Presumptive E. coli D/C Instructions Discharge Diet: Low fat / Low cholesterol Discharge Activity: Return to Normal Activity Weight Bearing Status: Weight bearing as tolerated Call your doctor if you observe: Fever of 101 or Higher, Shortness of breath, Dizziness, Swelling in the ankles and Chest pain Meaningful Use Info Meaningful Use Meaningful Use Diagnoses (Choose all that apply): None applicable Ischemic Stroke Statin Dosing Therapy Reference: STATIN DOSE THERAPY REFERENCE: * Patients > 75 years receive moderate or high dose statin therapy. * Patients 75 years or YOUNGER should receive HIGH intensity statin dose unless contraindicated. You will be required to document reason for non-treatment if statin daily dose does not meet guidelines. HIGH DOSE STATIN THERAPY DAILY Atorvastatin > than or = to 40 mg Rosuvastatin > than or = to 20 mg Amlodipine + Atorvastatin > than or = to 2.5/40 mg Ezetimibe + Simvastatin 10/80 mg Simvastatin 80mg Discharge Plan Admission Admit Date/Time: 03/27/24 18:39 Primary Reason for Your Visit: UTI, encephalopathy Attending Provider: Cristina Ghosh Primary Care Provider: Andrea Frazier Consulting Providers: Rafal Hernandez Instructions Patient Instructions: ED Cystitis Female Adult, ED UTI Fem Ch Discharge Orders/Prescriptions Prescriptions: New cefdinir 300 mg Capsule 300 mg PO Q12 Qty: 8 0RF Continued furosemide 40 mg tablet 40 mg PO DAILY Qty: 90 3RF cyanocobalamin (vitamin B-12) 500 mcg tablet 1,000 mcg PO DAILY donepezil 10 mg tablet 10 mg PO QHS quetiapine 50 mg tablet 50 mg PO QHS Entresto 24-26 mg tablet 1 tab PO BID Qty: 60 3RF carvedilol 3.125 mg tablet 3.125 mg PO BID Qty: 180 3RF Referrals / Follow Up: Andrea Frazier MD [Primary Care Provider] - Within 1 Week Disposition Disposition (needs filled in before D/C Order can be placed): [facility] Charges/Coding Visit Charges Inpatient E&M: 54579 Disch Hosp >30min
[2024-03-30 13:44] VITALS: BP 104/57; PULSE 75; RESP 18; TEMP 36.1; O2SAT 98
--- NOTE | 2024-03-30 15:10 | CASEMGMT ---
Social Work Per physician, pt is ready for discharge to [facility] today. SW completed PASRR in HENS and level of care. DC patient services assistant updated and to complete dc. Disposition: [facility], intermediate level of care REDDY Braun
--- NOTE | 2024-03-30 15:26 | CASEMGMT ---
Discharge Planning Discharge orders, signed med list, loc, and transport time sent to [facility] via [facility]. Physicians will transport patient by cot at 4p. Nursing, SW, and patients daughter (Dariana) updated. Suly Bella DC Planning Asst.
--- NOTE | 2024-03-30 15:32 | NURSING ---
Inés to nurse report given to Dannielle Gambino ([facility]).
== END 2024-03-30 16:16 ==
LOC: ED 16:12 → MS3 18:50
PROVIDERS: Admitting Provider Internal Medicine; Emergency Provider Emergency Medicine; PCP Internal Medicine; Visit Provider Student in an Organized Health Care Education/Training Program
DX: N30.00 Acute cystitis without hematuria (principal); I50.22 Chronic systolic (congestive) heart failure; G30.9 Alzheimer's disease, unspecified; F02.80 Dementia in other diseases classified elsewhere, unspecified severity, without behavioral disturbance, psychotic disturbance, mood disturbance, and anxiety; I42.0 Dilated cardiomyopathy; G93.40 Encephalopathy, unspecified; D50.9 Iron deficiency anemia, unspecified; D51.9 Vitamin B12 deficiency anemia, unspecified; B96.20 Unspecified Escherichia coli [E. coli] as the cause of diseases classified elsewhere; Z79.899 Other long term (current) drug therapy; Z95.810 Presence of automatic (implantable) cardiac defibrillator
CPT/HCPCS: 36415; 70450; 71045; 80048; 80053; 81001; 85025; 87086; 87088; 87186; 93005; 96361; 96365; 96366; 96372; 97161; 97166; 97535; 99221; 99284; J7030; J7050; A4216; G0378

== ENCOUNTER → 2024-04-06 | Outpatient (REF) | payer MEDICARE, SELFPAY ==
[2024-04-06 07:32] LABS: Absolute Lymphocyte Count 2.12 X10^3/uL (0.83-4.51); Absolute Neutrophil Count 4.2 X10^3/uL (2.0-7.7); Basophil# 0.05 X10^3/uL; Basophil% 0.7 % (0-1); Eosinophil# 0.14 X10^3/uL; Hematocrit 40.9 % (37-47); Hemoglobin 13.2 g/dL (12.0-15.0); Lymphocyte # 2.12 X10^3/ul (0.83-4.51); Mean Corp Hgb Conc 32.3 g/dL (32-36); Mean Corpuscular Hgb 28.1 pg (27.0-32.0); Mean Platelet Vol. 9.9 fl (6.2-12.0); Monocyte# 0.53 X10^3/uL; Monocyte% 7.5 % (0-10); NRBC Flagged by Analyzer 0 % (0-5); Neutrophil # 4.21 X10^3/uL (2.7-7.7); Neutrophil % 59.5 % (47-70); Platelet Count 188 K/mm3 (150-450); RBC Distribution Width CV 13.1 % (11.6-14.6); RBC Distribution Width SD 41.5 fl (35.1-43.9); White Blood Count 7.1 K/mm3 (4.4-11.0)
[2024-04-06 07:39] LABS: ALB/GLOB Ratio 1.2 RATIO (0.9-2.4); AST(SGOT) 33 U/L (15-37); Alanine Aminotransfer ALT/SGPT 18 U/L (13-56); Albumin, Serum 3.5 g/dL (3.2-5.0); Alkaline Phosphatase 83 U/L (45-117); Anion Gap 6 (5-15); BUN 25 mg/dL (7-18); BUN/Creat Ratio 32.8 RATIO (10-20); Calcium,Total 9.2 mg/dL (8.5-10.1); Chloride 102 mmol/L (98-107); Creatinine, Serum 0.76 mg/dL (0.55-1.02); EST Glomerular Filtration Rate 78 mL/min (>60); Est Glom Filt Rate - Afr Amer 94 mL/min (>60); Glucose 108 mg/dL (74-106); Potassium 3.1 mmol/L (3.5-5.1); Protein, Total 6.5 g/dL (6.4-8.2); Sodium Level 139 mmol/L (136-145)
[2024-04-06 08:53] LABS: Vitamin B12 1087 pg/mL (211-911)
== END ==
LOC: OLS.WHLCAR 05:00
PROVIDERS: PCP Internal Medicine; Visit Provider Internal Medicine
DX: D51.9 Vitamin B12 deficiency anemia, unspecified (principal); G93.40 Encephalopathy, unspecified; N30.00 Acute cystitis without hematuria; I50.22 Chronic systolic (congestive) heart failure
CPT/HCPCS: 36415; 80053; 82607; 85025

== ENCOUNTER → 2024-04-09 | Outpatient (REF) | payer MEDICARE, SELFPAY ==
[2024-04-09 07:58] LABS: Potassium 3.6 mmol/L (3.5-5.1)
== END ==
LOC: OLS.WHLCAR 04:00
PROVIDERS: PCP Internal Medicine; Visit Provider Internal Medicine
DX: E87.6 Hypokalemia (principal); G93.40 Encephalopathy, unspecified
CPT/HCPCS: 36415; 84132

== ENCOUNTER → 2024-05-22 | Outpatient (REF) | payer MEDICARE, SELFPAY ==
[2024-05-22 09:22] LABS: Absolute Neutrophil Count 2.7 X10^3/uL (2.0-7.7); Basophil# 0.05 X10^3/uL; Basophil% 0.9 % (0-1); Eosinophil# 0.12 X10^3/uL; Eosinophils% 2.2 % (0-5); Hematocrit 37.7 % (37-47); Hemoglobin 11.8 g/dL (12.0-15.0); Lymphocyte % 35.6 % (19-41); Mean Corp Hgb Conc 31.3 g/dL (32-36); Mean Corpuscular Hgb 27.4 pg (27.0-32.0); Mean Corpuscular Volume 87.5 fL (81-99); Mean Platelet Vol. 9.8 fl (6.2-12.0); Monocyte# 0.56 X10^3/uL; Monocyte% 10.5 % (0-10); NRBC Flagged by Analyzer 0 % (0-5); Neutrophil % 50.6 % (47-70); Platelet Count 192 K/mm3 (150-450); RBC Distribution Width SD 41.6 fl (35.1-43.9); Red Blood Count 4.31 M/mm3 (4.2-5.4); White Blood Count 5.3 K/mm3 (4.4-11.0)
[2024-05-22 09:31] LABS: Anion Gap 4 (5-15); BUN 16 mg/dL (7-18); BUN/Creat Ratio 22.8 RATIO (10-20); Chloride 103 mmol/L (98-107); EST Glomerular Filtration Rate 85 mL/min (>60); Est Glom Filt Rate - Afr Amer 103 mL/min (>60); Glucose 84 mg/dL (74-106); Potassium 3.8 mmol/L (3.5-5.1); Sodium Level 137 mmol/L (136-145)
== END ==
LOC: OLS.WHLCAR 05:00
PROVIDERS: PCP Internal Medicine; Visit Provider Internal Medicine
DX: I50.22 Chronic systolic (congestive) heart failure (principal); I11.0 Hypertensive heart disease with heart failure; I48.0 Paroxysmal atrial fibrillation; F03.90 Unspecified dementia, unspecified severity, without behavioral disturbance, psychotic disturbance, mood disturbance, and anxiety
CPT/HCPCS: 36415; 80048; 85025

== ENCOUNTER → 2024-06-22 | Outpatient (REF) | payer MEDICARE, SELFPAY ==
[2024-06-22 08:40] LABS: Absolute Lymphocyte Count 1.91 X10^3/uL (0.83-4.51); Absolute Neutrophil Count 3.3 X10^3/uL (2.0-7.7); Basophil# 0.05 X10^3/uL; Basophil% 0.8 % (0-1); Eosinophil# 0.11 X10^3/uL; Eosinophils% 1.8 % (0-5); Hematocrit 38.7 % (37-47); Hemoglobin 12.4 g/dL (12.0-15.0); Lymphocyte # 1.91 X10^3/ul (0.83-4.51); Lymphocyte % 32.1 % (19-41); Mean Corpuscular Hgb 27.4 pg (27.0-32.0); Mean Corpuscular Volume 85.4 fL (81-99); Monocyte# 0.57 X10^3/uL; Monocyte% 9.6 % (0-10); NRBC Flagged by Analyzer 0 % (0-5); Neutrophil # 3.28 X10^3/uL (2.7-7.7); Neutrophil % 55.2 % (47-70); Platelet Count 204 K/mm3 (150-450); RBC Distribution Width CV 12.6 % (11.6-14.6); RBC Distribution Width SD 39.4 fl (35.1-43.9); Red Blood Count 4.53 M/mm3 (4.2-5.4)
[2024-06-22 09:08] LABS: Anion Gap 6 (5-15); BUN 17 mg/dL (7-18); BUN/Creat Ratio 26.3 RATIO (10-20); Chloride 103 mmol/L (98-107); Creatinine, Serum 0.65 mg/dL (0.55-1.02); EST Glomerular Filtration Rate 94 mL/min (>60); Est Glom Filt Rate - Afr Amer 114 mL/min (>60); Glucose 91 mg/dL (74-106); Potassium 3.8 mmol/L (3.5-5.1); Sodium Level 137 mmol/L (136-145)
== END ==
LOC: OLS.WHLCAR 05:00
PROVIDERS: PCP Internal Medicine; Visit Provider Internal Medicine
DX: I50.22 Chronic systolic (congestive) heart failure (principal)
CPT/HCPCS: 36415; 80048; 85025

== ENCOUNTER → 2024-07-04 | Outpatient (REF) | payer MEDICARE, SELFPAY ==
[2024-07-04 08:01] LABS: Cholesterol 186 mg/dL (200); High Density Lipoprotein 64 mg/dL; T4 Free Direct 1.16 ng/dL (0.76-1.46); Triglycerides 97 mg/dL; Very Low Density Lipoprotein 19 mg/dL (5-40)
[2024-07-04 08:49] LABS: Hemoglobin A1c 6.1 % (3.8-5.6)
== END ==
LOC: OLS.WHLCAR 05:00
PROVIDERS: PCP Internal Medicine; Visit Provider Internal Medicine
DX: G30.9 Alzheimer's disease, unspecified (principal); F02.811 Dementia in other diseases classified elsewhere, unspecified severity, with agitation; I50.22 Chronic systolic (congestive) heart failure; Z79.899 Other long term (current) drug therapy
CPT/HCPCS: 36415; 80061; 83036; 84439; 84443

== ENCOUNTER → 2024-07-23 | Outpatient (REF) | payer MEDICARE, SELFPAY ==
[2024-07-23 08:38] LABS: Absolute Lymphocyte Count 1.91 X10^3/uL (0.83-4.51); Absolute Neutrophil Count 3.1 X10^3/uL (2.0-7.7); Basophil# 0.03 X10^3/uL; Basophil% 0.5 % (0-1); Eosinophils% 1.8 % (0-5); Hematocrit 38.9 % (37-47); Hemoglobin 12.1 g/dL (12.0-15.0); Lymphocyte # 1.91 X10^3/ul (0.83-4.51); Lymphocyte % 34.2 % (19-41); Mean Corp Hgb Conc 31.1 g/dL (32-36); Mean Corpuscular Hgb 27.1 pg (27.0-32.0); Mean Platelet Vol. 9.9 fl (6.2-12.0); Monocyte# 0.48 X10^3/uL; Monocyte% 8.6 % (0-10); NRBC Flagged by Analyzer 0 % (0-5); Neutrophil # 3.06 X10^3/uL (2.7-7.7); Neutrophil % 54.7 % (47-70); Platelet Count 179 K/mm3 (150-450); RBC Distribution Width CV 12.8 % (11.6-14.6); RBC Distribution Width SD 40.6 fl (35.1-43.9); Red Blood Count 4.47 M/mm3 (4.2-5.4); White Blood Count 5.6 K/mm3 (4.4-11.0)
[2024-07-23 09:20] LABS: Anion Gap 6 (5-15); BUN 27 mg/dL (7-18); BUN/Creat Ratio 43.1 RATIO (10-20); Calcium,Total 9.6 mg/dL (8.5-10.1); Chloride 108 mmol/L (98-107); Creatinine, Serum 0.63 mg/dL (0.55-1.02); EST Glomerular Filtration Rate 97 mL/min (>60); Est Glom Filt Rate - Afr Amer 118 mL/min (>60); Glucose 111 mg/dL (74-106); Potassium 3.7 mmol/L (3.5-5.1); Sodium Level 142 mmol/L (136-145)
== END ==
LOC: OLS.WHLCAR 05:00
PROVIDERS: PCP Internal Medicine; Visit Provider Internal Medicine
DX: I50.22 Chronic systolic (congestive) heart failure (principal)
CPT/HCPCS: 36415; 80048; 85025

== ENCOUNTER → 2024-08-16 17:21 | Outpatient (REF) | payer MEDICARE, SELFPAY ==
[2024-08-16 17:48] LABS: Color, Urine Yellow (Yellow); Glucose, Dipstick Normal (Normal); Ketone-Dipstick Negative (Negative); Leukocyte Esterase-Dipstick Negative /ul (Negative); Nitrite-Dipstick Negative (Negative); Occult Blood-Urine Negative /ul (Negative); Protein-Dipstick Negative (Negative); Urine Bilirubin Dipstick Negative (Negative); Urine Clarity Clear (Clear); Urine Urobilinogen Normal (Normal)
== END ==
LOC: OLS.WHLCAR 17:21
PROVIDERS: PCP Internal Medicine; Visit Provider Internal Medicine
DX: F02.811 Dementia in other diseases classified elsewhere, unspecified severity, with agitation (principal)
CPT/HCPCS: 81002; 87086

== ENCOUNTER → 2024-08-18 11:46 | Outpatient (REF) | payer MEDICARE, SELFPAY ==
[2024-08-18 11:55] LABS: Absolute Lymphocyte Count 0.33 X10^3/uL (0.83-4.51); Absolute Neutrophil Count 7.6 X10^3/uL (2.0-7.7); Basophil# 0.02 X10^3/uL; Basophil% 0.2 % (0-1); Hematocrit 40.9 % (37-47); Hemoglobin 13.3 g/dL (12.0-15.0); Lymphocyte # 0.33 X10^3/ul (0.83-4.51); Lymphocyte % 3.9 % (19-41); Mean Corp Hgb Conc 32.5 g/dL (32-36); Mean Corpuscular Hgb 27.4 pg (27.0-32.0); Mean Corpuscular Volume 84.2 fL (81-99); Mean Platelet Vol. 10.1 fl (6.2-12.0); NRBC Flagged by Analyzer 0 % (0-5); Neutrophil # 7.56 X10^3/uL (2.7-7.7); Neutrophil % 88.3 % (47-70); POSITIVE DIFFERENTIAL YES; Platelet Count 162 K/mm3 (150-450); RBC Distribution Width CV 12.7 % (11.6-14.6); RBC Distribution Width SD 39.2 fl (35.1-43.9); Red Blood Count 4.86 M/mm3 (4.2-5.4); White Blood Count 8.6 K/mm3 (4.4-11.0)
[2024-08-18 12:13] LABS: ALB/GLOB Ratio 1.1 RATIO (0.9-2.4); AST(SGOT) 80 U/L (15-37); Alanine Aminotransfer ALT/SGPT 55 U/L (13-56); Albumin, Serum 3.6 g/dL (3.2-5.0); Alkaline Phosphatase 86 U/L (45-117); Anion Gap 7 (5-15); BUN 17 mg/dL (7-18); BUN/Creat Ratio 19.5 RATIO (10-20); Calcium,Total 9.4 mg/dL (8.5-10.1); Chloride 98 mmol/L (98-107); Creatinine, Serum 0.87 mg/dL (0.55-1.02); EST Glomerular Filtration Rate 66 mL/min (>60); Est Glom Filt Rate - Afr Amer 80 mL/min (>60); Globulin 3.2 g/dL (2.2-4.2); Glucose 155 mg/dL (74-106); Potassium 3.5 mmol/L (3.5-5.1); Protein, Total 6.8 g/dL (6.4-8.2); Sodium Level 136 mmol/L (136-145)
== END ==
LOC: OLS.WHLCAR 11:46
PROVIDERS: PCP Internal Medicine; Visit Provider Internal Medicine
DX: I50.22 Chronic systolic (congestive) heart failure (principal); F02.811 Dementia in other diseases classified elsewhere, unspecified severity, with agitation; G30.9 Alzheimer's disease, unspecified
CPT/HCPCS: 80053; 85025

== ENCOUNTER → 2024-08-23 05:00 | Outpatient (REF) | payer MEDICARE, SELFPAY ==
[2024-08-23 09:08] LABS: Absolute Lymphocyte Count 1.93 X10^3/uL (0.83-4.51); Absolute Neutrophil Count 2.3 X10^3/uL (2.0-7.7); Basophil# 0.03 X10^3/uL; Basophil% 0.6 % (0-1); Eosinophil# 0.04 X10^3/uL; Eosinophils% 0.8 % (0-5); Hematocrit 39.4 % (37-47); Hemoglobin 12.6 g/dL (12.0-15.0); Lymphocyte # 1.93 X10^3/ul (0.83-4.51); Lymphocyte % 40.6 % (19-41); Mean Corpuscular Hgb 27.7 pg (27.0-32.0); Mean Corpuscular Volume 86.6 fL (81-99); Mean Platelet Vol. 10.2 fl (6.2-12.0); Monocyte# 0.41 X10^3/uL; Monocyte% 8.6 % (0-10); NRBC Flagged by Analyzer 0 % (0-5); Neutrophil # 2.31 X10^3/uL (2.7-7.7); Neutrophil % 48.8 % (47-70); Platelet Count 174 K/mm3 (150-450); RBC Distribution Width CV 12.9 % (11.6-14.6); RBC Distribution Width SD 40.8 fl (35.1-43.9); Red Blood Count 4.55 M/mm3 (4.2-5.4); White Blood Count 4.8 K/mm3 (4.4-11.0)
[2024-08-23 09:29] LABS: Anion Gap 3 (5-15); BUN 24 mg/dL (7-18); BUN/Creat Ratio 31.5 RATIO (10-20); Calcium,Total 9.4 mg/dL (8.5-10.1); Chloride 108 mmol/L (98-107); Creatinine, Serum 0.76 mg/dL (0.55-1.02); EST Glomerular Filtration Rate 78 mL/min (>60); Est Glom Filt Rate - Afr Amer 94 mL/min (>60); Glucose 101 mg/dL (74-106); Potassium 3.3 mmol/L (3.5-5.1); Sodium Level 144 mmol/L (136-145)
== END ==
LOC: OLS.WHLCAR 05:00
PROVIDERS: PCP Internal Medicine; Visit Provider Nurse Practitioner Adult Health
DX: I50.22 Chronic systolic (congestive) heart failure (principal)
CPT/HCPCS: 36415; 80048; 85025

== ENCOUNTER → 2024-08-27 05:00 | Outpatient (REF) | payer MEDICARE, SELFPAY ==
[2024-08-27 09:23] LABS: Potassium 3.6 mmol/L (3.5-5.1)
== END ==
LOC: OLS.WHLCAR 05:00
PROVIDERS: PCP Internal Medicine; Visit Provider Internal Medicine
DX: E87.6 Hypokalemia (principal)
CPT/HCPCS: 36415; 84132

== ENCOUNTER 2024-09-02 15:19 | Inpatient (IN) | payer MEDICARE, SELFPAY ==
[2024-09-02] VITALS (7 sets, daily range): BP systolic 105–129; BP diastolic 56–108; PULSE 79–84; RESP 13–22; TEMP 36.6; O2SAT 93–96; BMI 20.2
--- NOTE | 2024-09-02 15:46 | CT_ITS ---
STUDY: CT BRAIN WITHOUT CONTRAST REASON FOR EXAM: Female, 79 years old. fall, weakness from Covid Individualized dose optimization techniques were used for this CT. TECHNIQUE: Transaxial CT imaging of the brain was performed without administration of intravenous contrast material. COMPARISON: 03.27.24 FINDINGS: There are calcifications around the carotid artery. These are noted in the cavernous carotid arteries. Normal calvarium. Normal soft tissues. There is mild cerebral atrophy with widening of the extra-axial spaces and ventricular dilatation. There are areas of decreased attenuation within the white matter tracts of the supratentorial brain, consistent with microvascular disease changes. Normal basal ganglia and thalami. Normal brainstem. There is mild cerebellar atrophy. There is no intracranial hemorrhage. There are no findings of an acute ischemic infarction. Normal visualized paranasal sinuses. ASPECTS Score for Acute Strokes: 10/10 CT/Brain/Head without Contrast IMPRESSION: There are no acute findings. Chronic involutional changes of the brain. Electronically Signed: Gerald Marie MD at 17:26 EST ,
--- NOTE | 2024-09-02 15:46 | RAD_ITS ---
STUDY: XR Chest 1 View 09/02/2024 4:43 PM REASON FOR EXAM: Female, 79 years old. weakness COMPARISON: 03/27/2024 TECHNIQUE: XR Chest 1 View FINDINGS: There is no demonstrated pleural abnormality. There is a left sided pacemaker batterypack. Normal heart size. Normal mediastinum. Normal kourtney. Prominent appearing increased interstitial lung markings. Normal visualized pulmonary arteries. There is atherosclerotic calcification of the aortic arch with tortuosity. There are diffuse degenerative changes of the visualized thoracic spine. There is degenerative osteoarthritis of the bilateral shoulders. There are no acute findings of the upper abdomen. RAD/Chest 1 View (Portable) IMPRESSION: There are no acute findings. Electronically Signed: Gerald Marie MD at 17:27 EST ,
--- NOTE | 2024-09-02 15:46 | CT_ITS ---
EXAM: CT SPINE - CERVICAL WITHOUT IV REASON FOR EXAM: Female, 79 years old. NECK PAIN falls, weakness from Covid HISTORY: NECK PAIN falls, weakness from Covid Individualized dose optimization techniques were used for this CT. TECHNIQUE: Multiplanar images were obtained of the cervical spine. IV contrast was not utilized. COMPARISON: 06/04/2022 FINDINGS: The vertebral bodies do maintain their height. The odontoid process is intact. No pre-vertebral soft tissue swelling is seen. The intravertebral disc height is lost. There are scattered lymph nodes in the neck. There are degenerative changes of the osseous structures. There is bilateral facet arthropathy. There are scattered levels of foraminal stenosis. There are vascular calcifications. CT/Spine Cervical without Contras IMPRESSION: Degenerative changes of the cervical spine. There are no acute findings. Electronically Signed: Gerald Marie MD at 17:27 EST ,
--- NOTE | 2024-09-02 15:47 | EKG12_ITS ---
Test Reason : FALL Blood Pressure : */* mmHG Vent. Rate : 77 BPM Atrial Rate : 77 BPM P-R Int : 152 ms QRS Dur : 114 ms QT Int : 418 ms P-R-T Axes : 52 -75 103 degrees QTcB Int : 473 ms Atrial-sensed ventricular-paced rhythm Abnormal ECG Confirmed by PATT STANTON, KAREEM ([id number]), advertising editor AVNI BARRERA ([id number]) on 09/03/2024 2:04:26 PM Referred By: Confirmed By: KAREEM BELTRE MD
--- NOTE | 2024-09-02 15:48 | EX.ED.DYSGE1 ---
HPI History of Present Illness Chief Complaint: Fall Detail of Chief Complaint: Generalized weakness and falls Informant: patient Narrative Narrative: Patient presents the emergency department via EMS from memory unit at [facility]. Patient had COVID 2 weeks ago and has been progressively weak since that time. She said decreased p.o. intake. She fell yesterday when she leaned forward out of a chair and this was witnessed and there was no loss of consciousness. She fell again today but the daughter is unsure what happened. Patient normally over the several weeks has not been ambulating and she has been more weak. She denies headache or neck pain or chest pain. She is a poor historian but does answer yes and no questions. Daughter also gives some of the history. Daughter states she has seen a significant decline over the last month or so and her cognition. [facility] Medical History CKD (chronic kidney disease), stage II Anxiety and depression HLD (hyperlipidemia) HTN (hypertension) HFrEF (heart failure with reduced ejection fraction) Alzheimer dementia B12 deficiency anemia Nonischemic dilated cardiomyopathy Left ventricular dyssynchrony Nonischemic cardiomyopathy Iron deficiency anemia LBBB (left bundle branch block) CHF (congestive heart failure) Home Medications ?Medication ?Instructions ?Recorded ?Last Taken ?Type furosemide 40 mg tablet 40 mg PO DAILY water pill #90 tabs 01/21/23 Unknown Rx carvedilol 3.125 mg tablet 3.125 mg PO BID heart #180 TABLETS 03/16/24 Unknown Rx donepezil 10 mg tablet 10 mg PO QHS dementia 03/27/24 Unknown History sacubitril 24 mg-valsartan 26 mg 1 tab PO BID heart #180 TABLETS 08/23/24 Unknown Rx tablet (Entresto) brexpiprazole 0.5 mg tablet 0.5 mg PO QHS depression 09/02/24 Unknown History (Rexulti) mirtazapine 7.5 mg tablet 7.5 mg PO QHS sleep 09/02/24 Unknown History potassium chloride 20 mEq 20 meq PO BID supplement 09/02/24 Unknown History tablet,extended release(part/cryst) Allergy/AdvReac Type Severity Reaction Status Date / Time No Known Allergies Allergy Verified 03/27/24 15:18 Family History (Updated 09/02/24 @ 18:[address] Sia Smith MD) Mother Diabetes Father No problems noted. Surgical History Presence of cardiac resynchronization therapy defibrillator (ROUTER OPERATOR PIN-D) (08/31/22) History of left heart catheterization (12/28/21) H/O tubal ligation Social History household members: none housing: alf Smoking Status: Never smoker alcohol intake: never substance use type: does not use caffeine: Yes Type: carbonated beverages Number of servings: 1 and coffee Number of servings: 3 ROS ROS ED ROS Narrative Generalized weakness and falls Review of Systems ROS Unobtainable: other Constitutional Constitutional ED: Reports lethargy; Denies chills, fever(s), sweats or weight loss Eyes Eyes: Denies blurry vision, change in vision or diplopia ENT ENT ED: Denies rhinorrhea or sore throat Cardiovascular Cardiovascular: Denies chest pain, orthopnea or racing heartbeat Respiratory/Chest Respiratory/Chest: Denies cough, dyspnea, dyspnea on exertion, orthopnea or sputum Gastrointestinal Gastrointestinal: Denies abdominal pain, diarrhea, nausea or vomiting Genitourinary Genitourinary ED: Denies dysuria, hematuria or urinary frequency Musculoskeletal Musculoskeletal: Denies arthralgias, back pain, myalgias or neck pain Integumentary Denies abscess, Abrasions or rash Neurologic Neurologic: Denies headache(s) or weakness Psychiatric Psychiatric: Denies anxiety, depression or suicidal thoughts Endocrine Endocrinology: Denies polydipsia, polyphagia or polyuria Hematologic/Lymphatic Hematologic/Lymphatic: Denies easy bleeding, easy bruising or lymphadenopathy Allergic/Immunologic Allergic/Immunologic ED: Denies mouth swelling, tongue swelling or urticaria EXAM Physical Exam Const Vital Signs: 09/02/24 15:20 09/02/24 15:20 09/02/24 16:31 Temperature 97.9 F Temperature Source Oral Pulse Rate 81 80 Respiratory Rate 16 13 Respiratory Effort Normal Respiratory Depth Normal Respiratory Pattern Normal Blood Pressure 118/76 124/70 H Blood Pressure Mean 90 88 Pulse Ox 94 96 Oxygen Delivery Method Room Air Room Air 09/02/24 17:00 Temperature Temperature Source Pulse Rate 79 Respiratory Rate 20 H Respiratory Effort Respiratory Depth Respiratory Pattern Blood Pressure 129/108 H Blood Pressure Mean 115 Pulse Ox 94 Oxygen Delivery Method Positive well nourished and well developed General Appearance ED: well developed and NAD HEENT Reports TM's clear and moist mucous membranes normocephalic and atraumatic; Negative for trauma or tenderness Tympanic Membrane ED: Yes TM's clear Eyes PERRL and EOMs intact bilaterally General Eye ED: Negative for pale conjunctiva or scleral icterus Neck no lymphadenopathy, supple and no JVD General: Negative for tenderness Chest Wall inspection of chest normal and palpation of chest normal Chest: Negative for tenderness Resp normal respiratory effort and clear to auscultation bilaterally Effort and Inspection: Negative for respiratory distress or pain with movement Auscultation: Negative for rhonchi, wheezes or diminished lung sounds Cardio regular rate, regular rhythm, S1 normal heart sound, S2 normal heart sound and no murmurs Peripheral Pulses: pulses 2+ throughout GI normal to inspection, nondistended, normoactive bowel sounds, soft to palpation, non-tender, non-distended and no masses Back/Spine no CVA tenderness and no thoracic nor lumbar tenderness Extremity normal to inspection General Extremety ED: Negative for edema General Extremity: Negative for edema Neuro oriented x3, CN's II-XII intact bilaterally, no sensory deficits noted and gait normal Sensorium / Orientation: awake, alert, oriented to person, oriented to place and oriented to time Motor Exam: strength 5/5 throughout and strength abnormal Psych mental status grossly normal Skin no rashes or lesions noted and no wounds MDM MDM MDM Narrative Medical decision making narrative: Patient presents with concern for dehydration as she has had decreased p.o. intake. She has had frequent falls over the last couple days. She had recent COVID. IV line established. She was ordered a liter normal same fluid bolus. CBC with differential white count of 12.2 with hemoglobin 17.4 and platelet count of 171. Chemistries significant for sodium of 158 with potassium 4.5 and chloride 124. BUN was 106 with creatinine of 2.5. Lactate was elevated minimally at 2.1. Troponin was normal at 27. Urinalysis without signs of infection. EKG obtained arrival showed a atrially sensed ventricularly paced rhythm with rate of 77 bpm. Because of frequent fall she had a CT scan of the brain without contrast that was unremarkable and showed chronic involutional changes. CT of the C-spine showed no fractures. Lab Data Attestation: I reviewed the patient's lab results. Labs: Laboratory Results - last 24 hr 09/02/24 09/02/24 09/02/24 16:00 16:30 17:08 WBC 12.2 H RBC 6.12 H Hgb 17.4 H Hct 56.1 H MCV 91.7 MCH 28.4 MCHC 31.0 L RDW Std Deviation 45.9 H RDW Coeff of Esme 13.6 Plt Count 171 MPV 11.2 Immature Gran % (Auto) 0.600 Neut % (Auto) 73.4 H Lymph % (Auto) 18.0 L [place] % (Auto) 6.8 Eos % (Auto) 0.6 Baso % (Auto) 0.6 Absolute Neuts (auto) 8.9 H Absolute Lymphs (auto) 2.19 Nucleated RBC % 0 ESR 3 Sodium 158 H Potassium 4.5 Chloride 124 H Carbon Dioxide 33.0 H Anion Gap 2 L BUN 106 H* Creatinine 2.50 H Est GFR (MDRD) Af Amer 24 L Est GFR (MDRD) Non-Af 20 L BUN/Creatinine Ratio 42.4 H Glucose 133 H Lactic Acid 2.1 H* Calcium 10.3 H Phosphorus 4.0 Magnesium 3.8 H Ferritin 1028 H Total Bilirubin 0.80 AST 57 H ALT 134 H Alkaline Phosphatase 108 Lactate Dehydrogenase 261 H Total Creatine Kinase 114 Troponin I High Sens 27 C-React Prot Ext Range < 2.90 B-Natriuretic Peptide 17.3 Total Protein 8.5 H Albumin 4.5 Globulin 4.0 Albumin/Globulin Ratio 1.1 Procalcitonin 0.12 H Urine Color Yellow Urine Clarity Clear Urine pH 5.0 Ur Specific [place] 1.020 Urine Protein Negative Urine Glucose (UA) Normal Urine Ketones Negative Urine Occult Blood Negative Urine Nitrite Negative Urine Bilirubin Negative Urine Urobilinogen 1 H Ur Leukocyte Esterase 25 H Urine RBC 0 SEEN Urine WBC 0 SEEN Ur Squamous Epith Cells 0-5 SEEN Urine Bacteria 1+ Hyaline Casts 25-50 SEEN Urine Mucus 0 SEEN Radiography Diagnostic Testing: Clinical Impression(s) from Imaging Studies Brain CT 09/02/24 15:46 IMPRESSION: There are no acute findings. Chronic involutional changes of the brain. Electronically Signed: Gerald Marie MD at 17:26 EST , Cervical Spine CT 09/02/24 15:46 IMPRESSION: Degenerative changes of the cervical spine. There are no acute findings. Electronically Signed: Gerald Marie MD at 17:27 EST , Chest X-Ray 09/02/24 15:46 IMPRESSION: There are no acute findings. Electronically Signed: Gerald Marie MD at 17:27 EST , 1 view chest x-ray obtained interpreted by myself as no evidence of infiltrate or pneumothorax or acute disease process. Radiology in agreement. EKG Initial EKG: Attestation: I personally reviewed and interpreted this EKG as follows: Comments: Atrially sensed and ventricularly paced rhythm with rate of 77 bpm Discharge Plan Dx/Rx/DC Orders Clinical Impression: Adult failure to thrive, Dehydration, Hypernatremia, LOYL (acute kidney injury), Falls Disposition Disposition: Acute Care Hospital [facility] Discharge Date/Time: 09/02/24 19:58
[2024-09-02] MEDS: 0.9% Normal Saline (1000mL) 1,000 ML 1000 ML IV (16:03)
[2024-09-02 16:51] LABS: Absolute Lymphocyte Count 2.19 X10^3/uL (0.83-4.51); Absolute Neutrophil Count 8.9 X10^3/uL (2.0-7.7); Basophil# 0.07 X10^3/uL; Basophil% 0.6 % (0-1); Eosinophil# 0.07 X10^3/uL; Eosinophils% 0.6 % (0-5); Hemoglobin 17.4 g/dL (12.0-15.0); Lymphocyte # 2.19 X10^3/ul (0.83-4.51); Mean Corpuscular Hgb 28.4 pg (27.0-32.0); Mean Corpuscular Volume 91.7 fL (81-99); Mean Platelet Vol. 11.2 fl (6.2-12.0); Monocyte# 0.83 X10^3/uL; Monocyte% 6.8 % (0-10); NRBC Flagged by Analyzer 0 % (0-5); Neutrophil # 8.93 X10^3/uL (2.7-7.7); Neutrophil % 73.4 % (47-70); Platelet Count 171 K/mm3 (150-450); RBC Distribution Width CV 13.6 % (11.6-14.6); RBC Distribution Width SD 45.9 fl (35.1-43.9); Red Blood Count 6.12 M/mm3 (4.2-5.4); White Blood Count 12.2 K/mm3 (4.4-11.0)
[2024-09-02 16:56] LABS: Hematocrit 56.1 % (37-47)
[2024-09-02 17:15] LABS: ALB/GLOB Ratio 1.1 RATIO (0.9-2.4); AST(SGOT) 57 U/L (15-37); Alanine Aminotransfer ALT/SGPT 134 U/L (13-56); Albumin, Serum 4.5 g/dL (3.2-5.0); Alkaline Phosphatase 108 U/L (45-117); Anion Gap 2 (5-15); BUN 106 mg/dL (7-18); BUN/Creat Ratio 42.4 RATIO (10-20); Calcium,Total 10.3 mg/dL (8.5-10.1); Chloride 124 mmol/L (98-107); EST Glomerular Filtration Rate 20 mL/min (>60); Est Glom Filt Rate - Afr Amer 24 mL/min (>60); Glucose 133 mg/dL (74-106); Potassium 4.5 mmol/L (3.5-5.1); Protein, Total 8.5 g/dL (6.4-8.2); Sodium Level 158 mmol/L (136-145); Troponin-I HS 27 pg/mL (3.0-54.0)
[2024-09-02 17:16] LABS: Lactic Acid 2.1 mmol/L (0.4-1.9)
[2024-09-02 17:17] LABS: Mucous, Urine 0 SEEN /hpf (<or=2+); Red Blood Cells-Urine 0 SEEN /hpf (0-5); White Blood Cells 0 SEEN /hpf (0-5)
[2024-09-02 17:19] LABS: Color, Urine Yellow (Yellow); Glucose, Dipstick Normal (Normal); Ketone-Dipstick Negative (Negative); Leukocyte Esterase-Dipstick 25 /ul (Negative); Nitrite-Dipstick Negative (Negative); Occult Blood-Urine Negative /ul (Negative); Protein-Dipstick Negative (Negative); Urine Bilirubin Dipstick Negative (Negative); Urine Clarity Clear (Clear); Urine Urobilinogen 1 mg/dl (Normal)
[2024-09-02 17:32] LABS: Bacteria 1+ /hpf (None Seen); Hyaline Cast 25-50 SEEN /lpf (0-5); Squamous Epithelial Cells - UA 0-5 SEEN /hpf (5-10)
--- NOTE | 2024-09-02 17:35 | PCM.HP.STD ---
HPI - General General Date of Admission: 09/02/24 Date of Service: 09/02/24 Chief Complaint: Recent COVID, not eating, falls. HPI Narrative The patient is a 79 y/o F w/ PMHx: CKD stage II per GFR trending, Alzheimer's dementia with unclear exact extent or behavior disturbance history, HFrEF/nonischemic dilated cardiomyopathy unclear type/LV dyssynchrony status post defibrillator placement, HTN, HLD, Chronic anemia/Fe deficiency anemia who presents to the [facility] ED on 09/02/2024 with history of diagnosis of COVID 2 weeks prior progressively worsening with increased fatigue, malaise, decreased oral intake and increasing frequency of falls including the day prior falling forward out of the chair which was witnessed with no loss of consciousness however patient fell again on day of presentation with minimal ambulation secondary to her debility prompting family to bring patient in for evaluation. Patient is baseline a poor story and but mentation has been worsening recently with a significant decline in her cognition over the last month. Workup in the ED included T97.9, heart rate 81, BP 118/76, respiratory rate 16, 94% on room air with most recent repeat vitals heart rate 79, BP 129/108, respiratory rate 20, 94% on room air, CBC with WBC 12.2, hemoglobin 17.4, MCV 91.7, platelet 171 with left shift, CMP with sodium 158, chloride 124, carbon oxide 33, BUN/creatinine 106/2.50, GFR 20, glucose 133, lactic acid 2.1, calcium 10.3, T. bili 0.80, AST/LT 57/134, troponin 27, urinalysis pending upon evaluation, CT brain with no acute findings with chronic involutional changes, CT cervical spine with degenerative changes with no acute finding, chest x-ray no acute cardiopulmonary findings, EKG with paced rhythm, blood culture x 2 pending per ED. In the ED patient answered 1 L normal saline and additional 1 L run at 250 cc/h. Upon discussion with family in the ED they do note with CODE STATUS discussions interested in consulting with hospice as patient has had a significant decline since at least June 2024 and they notes she just continues to worsen. If patient does improve with hydration but is still not interested in eating they do not wish to force the issue and we will proceed with hospice evaluation regardless. [facility] Medical History CKD (chronic kidney disease), stage II Anxiety and depression HLD (hyperlipidemia) HTN (hypertension) HFrEF (heart failure with reduced ejection fraction) Alzheimer dementia B12 deficiency anemia Nonischemic dilated cardiomyopathy Left ventricular dyssynchrony Nonischemic cardiomyopathy Iron deficiency anemia LBBB (left bundle branch block) CHF (congestive heart failure) Home Medications ?Medication ?Instructions ?Recorded ?Last Taken ?Type furosemide 40 mg tablet 40 mg PO DAILY water pill #90 tabs 01/21/23 Unknown Rx carvedilol 3.125 mg tablet 3.125 mg PO BID heart #180 TABLETS 03/16/24 Unknown Rx donepezil 10 mg tablet 10 mg PO QHS dementia 03/27/24 Unknown History sacubitril 24 mg-valsartan 26 mg 1 tab PO BID #180 TABLETS 08/23/24 Unknown Rx tablet (Entresto) brexpiprazole 0.5 mg tablet 0.5 mg PO DAILY 09/02/24 Unknown History (Rexulti) mirtazapine 7.5 mg tablet 7.5 mg PO QHS 09/02/24 Unknown History potassium chloride 20 mEq 20 meq PO DAILY 09/02/24 Unknown History tablet,extended release(part/cryst) Allergy/AdvReac Type Severity Reaction Status Date / Time No Known Allergies Allergy Verified 03/27/24 15:18 Family History Mother Diabetes Father No problems noted. 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-D) (08/31/22) History of left heart catheterization (12/28/21) H/O tubal ligation Social History household members: none housing: prison Smoking Status: Never smoker alcohol intake: never substance use type: does not use caffeine: Yes Type: carbonated beverages Number of servings: 1 and coffee Number of servings: 3 ROS Review of Systems ROS Unobtainable: due to encephalopathy and due to mental condition Vital Signs Vital Signs Vital Signs: 09/02/24 15:20 09/02/24 15:20 09/02/24 16:31 Temperature 97.9 F Temperature Source Oral Pulse Rate 81 80 Respiratory Rate 16 13 Respiratory Effort Normal Respiratory Depth Normal Respiratory Pattern Normal Blood Pressure 118/76 124/70 H Blood Pressure Mean 90 88 Pulse Ox 94 96 Oxygen Delivery Method Room Air Room Air 09/02/24 17:00 Temperature Temperature Source Pulse Rate 79 Respiratory Rate 20 H Respiratory Effort Respiratory Depth Respiratory Pattern Blood Pressure 129/108 H Blood Pressure Mean 115 Pulse Ox 94 Oxygen Delivery Method Physical Exam Narrative Physical Examination: General: Awakens to stimuli and once awake is more alert, oriented to self, will answer some questions, does have significant underlying dementia, denies any complaints, remains cooperative but is very fatigued and falls back asleep quickly. Skin: Normal color, normal turgor, no icterus, no cyanosis except occasional stage ecchymoses, abrasion. HEENT: AT/NC, EOMI, PERRLA, dry MM, no carotid bruits or JVD noted. Lungs: Diminished, greater bases, mildly increased respiratory rate but no distress, no rales, ronchi or wheezing. Heart: Currently regular rate and rhythm; no gallop, rub audible. Abdomen: Soft, NTTP, ND, hyperactive BS, no appreciated HSM. Extremities: No cyanosis, clubbing, or markedly noted peripheral edema. Neurological: Awakens to stimuli and once awake is more alert, oriented to self, will answer some questions, does have significant underlying dementia, denies any complaints, remains cooperative but is very fatigued and falls back asleep quickly, cognitive function decreased baseline with underlying dementia but currently worsened, not baseline intact; pupils equally reactive to light and accommodation, cranial nerves grossly normal, moving all 4 extremities, strength severely globally decreased. Psychiatric: Affect appears flat, fatigued, no acute evidence of depressive or anxiety feelings. Results Lab / Micro Data 09/02/24 16:00 09/02/24 16:00 Labs: Laboratory Results - last 24 hr 09/02/24 16:00: WBC 12.2 H, RBC 6.12 H, Hgb 17.4 H, Hct 56.1 H, MCV 91.7, MCH 28.4, MCHC 31.0 L, RDW Std Deviation 45.9 H, RDW Coeff of Esme 13.6, Plt Count 171, MPV 11.2, Immature Gran % (Auto) 0.600, Neut % (Auto) 73.4 H, Lymph % (Auto) 18.0 L, [place] % (Auto) 6.8, Eos % (Auto) 0.6, Baso % (Auto) 0.6, Absolute Neuts (auto) 8.9 H, Absolute Lymphs (auto) 2.19, Nucleated RBC % 0, Sodium 158 H, Potassium 4.5, Chloride 124 H, Carbon Dioxide 33.0 H, Anion Gap 2 L, BUN 106 H*, Creatinine 2.50 H, Est GFR (MDRD) Af Amer 24 L, Est GFR (MDRD) Non-Af 20 L, BUN/Creatinine Ratio 42.4 H, Glucose 133 H, Calcium 10.3 H, Total Bilirubin 0.80, AST 57 H, ALT 134 H, Alkaline Phosphatase 108, Troponin I High Sens 27, Total Protein 8.5 H, Albumin 4.5, Globulin 4.0, Albumin/Globulin Ratio 1.1 09/02/24 16:30: Lactic Acid 2.1 H* 09/02/24 17:08: Urine Color Yellow, Urine Clarity Clear, Urine pH 5.0, Ur Specific [place] 1.020, Urine Protein Negative, Urine Glucose (UA) Normal, Urine Ketones Negative, Urine Occult Blood Negative, Urine Nitrite Negative, Urine Bilirubin Negative, Urine Urobilinogen 1 H, Ur Leukocyte Esterase 25 H, Urine RBC 0 SEEN, Urine WBC 0 SEEN, Ur Squamous Epith Cells 0-5 SEEN, Urine Bacteria 1+, Hyaline Casts 25-50 SEEN, Urine Mucus 0 SEEN Imaging Radiology Impression Brain CT 09/02/24 15:46 IMPRESSION: There are no acute findings. Chronic involutional changes of the brain. Electronically Signed: Gerald Marie MD at 17:26 EST , Cervical Spine CT 09/02/24 15:46 IMPRESSION: Degenerative changes of the cervical spine. There are no acute findings. Electronically Signed: Gerald Marie MD at 17:27 EST , Chest X-Ray 09/02/24 15:46 IMPRESSION: There are no acute findings. Electronically Signed: Gerald Marie MD at 17:27 EST Reading Location ID and State: [facility] / [place] , Service support , Assessment & Plan Assessment/Plan (1) Adult failure to thrive: PLAN: Plan The patient is a 79 y/o F w/ PMHx: CKD stage II per GFR trending, Alzheimer's dementia with unclear exact extent or behavior disturbance history, HFrEF/nonischemic dilated cardiomyopathy unclear type/LV dyssynchrony status post defibrillator placement, HTN, HLD, Chronic anemia/Fe deficiency anemia who presents to the [facility] ED on 09/02/2024 with history of diagnosis of COVID 2 weeks prior progressively worsening with increased fatigue, malaise, decreased oral intake and increasing frequency of falls including the day prior falling forward out of the chair which was witnessed with no loss of consciousness however patient fell again on day of presentation with minimal ambulation secondary to her debility prompting family to bring patient in for evaluation. #1. Significant decline, debility, increasing fall frequency with poor oral intake with Acute Encephalopathy, mulitfactorial, secondary to recent Acute Viral Syndrome, COVID-19 with adult failure to thrive in addition to #2-5 coupled with underlying history: Will admit to the [place], given timeline she does not need to be maintained on COVID precautions, currently not requiring any oxygen supplementation, will obtain COVID panel including D-dimer, procalcitonin, CRP, CPK, Ferritin, LDH and BNP, continue supportive care including q 2 hour turning including prone given no prone bed availability and judicious hydration, closely monitor for worsening status for ARDS and multiorgan failure, given timeline she is not a remdesivir candidate and currently not requiring oxygen thus will defer steroids. PT/OT/case management consulted for discharge planning. #2. Hyponatremia, hypochloremia secondary to significant dehydration: Admission CMP with sodium 158, chloride 124, administered 1 L in the ED coupled with 250 cc/h x 1 additional liter in the ED, will continue hydration and trend CMP. #3. Acute kidney injury on CKD stage II: Secondary to recent acute illness with significant decreased oral intake, admission BUN/Cr 106/2.50, GFR 12, prior baseline creatinine noted to be 0 0.5-0.8, last noted 08/23/2024 creatinine 0.76 at that time. Will hydrate, hold nephrotoxic medications and repeat chemistry in AM. If no improvement would plan FeNa and renal ultrasound assessment. Urinalysis currently requested per ED but pending. #4. Hypercalcemia: Admission calcium mildly elevated 10.3, coupled with the fact that patient is significantly dehydrated we will continue hydration and repeat calcium level in a.m. with CMP. #5. Transaminitis, mild: Admission CMP with T. bili 0.0, AST/LT 57/134, alk phos 108, in the significantly dehydrated setting with recent COVID illness, will continue treatment as noted and repeat CMP in AM. #6. HFrEF/nonischemic dilated cardiomyopathy unclear type/LV dyssynchrony: Patient status post defibrillator placement, complicates presentation as patient needs notable hydration, most recent echo noted 02/15/2023 with normal LV size, EF 45%, bubble contrast study negative for [id number] interatrial shunt, mild concentric LVH, LV ventricular systolic function improved from previous echocardiogram per report as had been 12/2021 previously 13%. Will continue aspirin, Coreg, holding Entresto as well as Lasix regimen, resume once clinically appropriate. #7. Hypertension: Currently BP normal range, will cautiously continue Coreg, holding Lasix and Entresto given significant acute kidney injury, add back once appropriate, as needed IV hydralazine interim. #8. Hyperlipidemia: Not on statin therapy, given age and current mild acute transaminitis will continue evaluation outpatient #9. Anxiety and depression: Will temporarily hold patient mirtazapine regimen, add back once renal function appropriate. Will continue patient brexpiprazole regimen as noted may continue at max 2 mg once daily if CrCl < 60. #10. Chronic anemia/iron deficiency anemia: Admission hemoglobin to 17.4 however in the extreme dehydrated setting, last noted 08/23/2024 hemoglobin 12.6 which is baseline for patient more recently, will continue to trend, previously been on iron supplementation, not listed currently but clarifying, continue to trend CBC. #11. Alzheimer's dementia with unclear extent or behavioral disturbance history: Complicates presentation, maintain on fall and aspiration precautions, continue patient home donepezil regimen, PT/OT/case management consulted for discharge planning. Will continue patient brexpiprazole regimen as noted may continue at max 2 mg once daily if CrCl < 60. #12. Severe protein calorie malnutrition: Patient with significant decreased oral intake, suspect likely recent weight loss, will consult nutrition for recommendations. Mag and phos pending. #13. DVT prophylaxis: Heparin. #14. CODE status: Patient JUANITA is her daughter Heidi and living will is currently in place. Discussed CODE status at length including difference between FULL code, DNR-CCA and DNR-CC status. Following discussions about the differences in these status, requested DNR-CCA, no intubation. Discussed progressive decline since at least June and family also is requesting consultation with hospice to consider potential transition. Advanced Care Planning Face to Face Time: 16 minutes. Charges/Coding Visit Charges Inpatient E&M: 35334 Init Hosp L3 Procedures Hospitalists Procedures: 32860 Advncd Care Plan 30 Min
--- NOTE | 2024-09-02 17:53 | ED.RN ---
VO received from Dr. Smith to start new bag of NS fluids at 75 mL/hr instead of 250 mL/hr
[2024-09-02] MEDS: 0.9% Normal Saline (1000mL) 1,000 ML 75 ML IV (17:57)
[2024-09-02 18:14] LABS: CPK Total, Creatine Kinase 114 U/L (26-192); CRP < 2.90 mg/L (0.0-3.0); Ferritin 1028 ng/mL (8-252); LDH 261 U/L (84-246); Magnesium 3.8 mg/dL (1.6-2.6)
[2024-09-02 18:17] LABS: Procalcitonin 0.12 ng/mL (0.00-0.09)
[2024-09-02 18:19] LABS: Erythrocyte Sedimentation Rate 3 mm/hr (0-30)
[2024-09-02 18:33] LABS: BNP,B-Type NATRIURETIC PEPTIDE 17.3 pg/mL (0-100)
[2024-09-02 18:54] LABS: D-Dimer Quantitative (DVT/PE) 2.13 FEU/ug/m (0.27-0.49)
--- NOTE | 2024-09-02 20:20 | VDLE_ITS ---
Reason For Study: Elevated D Dimer RIGHT LEFT GSV is normal. GSV is normal. CFV is compressible, spontaneous, phasic, CFV is compressible, spontaneous, phasic, competent and demonstrates normal competent, and demonstrates normal augmentation. augmentation. FV is compressible, spontaneous, phasic, FV is compressible, spontaneous, phasic, competent and demonstrates normal competent and demonstrates normal augmentation. augmentation. POP V is compressible, spontaneous, phasic, POP V is compressible, spontaneous, phasic, competent and demonstrates normal competent and demonstrates normal augmentation. augmentation. T/P Trunk is compressible. T/P Trunk is compressible. PTV is compressible. PTV is compressible. RT PerV is compressible. LT PerV is compressible. Procedure This is a venous duplex using B-mode, color flow and spectral Doppler. Exam performed portable in patient room. The exam was diagnostic. A preliminary report was called and/or faxed to PCU dipper operator. VL/Venous Duplex US - [place] Extrem Interpretation Summary Deep veins of the lower extremities are bilaterally patent and compressible seg mentally. There is no evidence of deep vein thrombosis on either side. Valvular competence appears in tact within the proximal deep venous systems bilaterally. The great saphenous veins appear bila terally patent and compressible segmentally. Ordering Physician: Sia Smith Performed By: Jordan Rondon RVT
[2024-09-02 20:45] LABS: Reflex Lactate? Y
[2024-09-02 22:12] LABS: Lactic Acid 3.3 mmol/L (0.4-1.9)
[2024-09-02] MEDS: Menthol/Lanolin/Calamine/Znox 113 GM Tube 1 APPLIC TOPICAL (23:12)
[2024-09-02] MEDS: CLARIFY ORDER 1 EACH NOTE (23:23)
[2024-09-02] MEDS: 0.45% Normal Saline 1,000 ML 250 ML IV (23:47)
[2024-09-02] MEDS: Heparin Injection (Vial) 5,000 UNIT/ML VIAL 5000 UNIT SC (23:47)
[2024-09-03 04:17] VITALS: BP 113/64; PULSE 62; RESP 16; TEMP 36.6; O2SAT 97
[2024-09-03] MEDS: 0.9% Saline Lock 10 ML Syringe IV (04:20)
[2024-09-03 04:21] LABS: Absolute Lymphocyte Count 1.86 X10^3/uL (0.83-4.51); Absolute Neutrophil Count 6.4 X10^3/uL (2.0-7.7); Basophil# 0.05 X10^3/uL; Basophil% 0.6 % (0-1); Eosinophil# 0.12 X10^3/uL; Eosinophils% 1.3 % (0-5); Hematocrit 49.6 % (37-47); Hemoglobin 14.8 g/dL (12.0-15.0); Lymphocyte # 1.86 X10^3/ul (0.83-4.51); Lymphocyte % 20.6 % (19-41); Mean Corp Hgb Conc 29.8 g/dL (32-36); Mean Corpuscular Hgb 27.5 pg (27.0-32.0); Mean Corpuscular Volume 92.2 fL (81-99); Mean Platelet Vol. 11.6 fl (6.2-12.0); Monocyte# 0.59 X10^3/uL; Monocyte% 6.5 % (0-10); NRBC Flagged by Analyzer 0 % (0-5); Neutrophil # 6.39 X10^3/uL (2.7-7.7); Neutrophil % 70.6 % (47-70); Platelet Count 113 K/mm3 (150-450); RBC Distribution Width CV 13.7 % (11.6-14.6); Red Blood Count 5.38 M/mm3 (4.2-5.4); White Blood Count 9.1 K/mm3 (4.4-11.0)
[2024-09-03 04:46] LABS: Lactic Acid 1.6 mmol/L (0.4-1.9)
[2024-09-03 04:47] LABS: ALB/GLOB Ratio 1.1 RATIO (0.9-2.4); AST(SGOT) 41 U/L (15-37); Alanine Aminotransfer ALT/SGPT 89 U/L (13-56); Albumin, Serum 3.3 g/dL (3.2-5.0); Alkaline Phosphatase 85 U/L (45-117); Anion Gap 2 (5-15); BUN 87 mg/dL (7-18); BUN/Creat Ratio 49.4 RATIO (10-20); Calcium,Total 9.1 mg/dL (8.5-10.1); Chloride 129 mmol/L (98-107); Creatinine, Serum 1.76 mg/dL (0.55-1.02); EST Glomerular Filtration Rate 30 mL/min (>60); Est Glom Filt Rate - Afr Amer 36 mL/min (>60); Estimated Creatinine Clearance 22.63 ml/min; Globulin 2.9 g/dL (2.2-4.2); Glucose 132 mg/dL (74-106); Protein, Total 6.2 g/dL (6.4-8.2); Sodium Level 158 mmol/L (136-145)
[2024-09-03 06:00] VITALS: BMI 20.8
[2024-09-03 10:15] VITALS: BP 111/51; PULSE 69; RESP 18; TEMP 36.5; O2SAT 99
--- NOTE | 2024-09-03 10:26 | CASEMGMT ---
DARSHAN noted a Hospice referral in computer for patient. DARSHAN called patient's son Heidi. Introduced self and role at [facility]. Heidi confirmed they would like to talk with Hospice. DARSHAN confirmed Heidi would like [facility]. DARSHAN explained SW will make a referral and Hospice will be contacting him to set up a meeting. Heidi thanked DARSHAN. DARSHAN called [facility] and spoke with Taylor regarding referral. DARSHAN also faxed information. Racheal LEON
[2024-09-03] MEDS: 0.45% Normal Saline 1,000 ML 50 ML IV (10:39)
[2024-09-03] MEDS: Carvedilol 3.125 MG TABLET PO ×2 (10:41→21:23)
[2024-09-03] MEDS: Menthol/Lanolin/Calamine/Znox 113 GM Tube 1 APPLIC TOPICAL ×4 (10:41→21:23)
[2024-09-03] MEDS: Heparin Injection (Vial) 5,000 UNIT/ML VIAL 5000 UNIT SC ×2 (10:42→21:23)
[2024-09-03 13:23] LABS: Anion Gap 2 (5-15); BUN 75 mg/dL (7-18); BUN/Creat Ratio 48.1 RATIO (10-20); Calcium,Total 9.3 mg/dL (8.5-10.1); Chloride 129 mmol/L (98-107); Creatinine, Serum 1.56 mg/dL (0.55-1.02); EST Glomerular Filtration Rate 34 mL/min (>60); Est Glom Filt Rate - Afr Amer 41 mL/min (>60); Estimated Creatinine Clearance 26.22 ml/min; Glucose 117 mg/dL (74-106); Potassium 3.8 mmol/L (3.5-5.1); Sodium Level 158 mmol/L (136-145)
--- NOTE | 2024-09-03 14:11 | CASEMGMT ---
SW received a call from Hospice and they will be at [facility] today between 330 and 4 to meet with patient's family. Racheal LEON
[2024-09-03 15:01] VITALS: O2SAT 95
--- NOTE | 2024-09-03 16:05 | PCM.PN.HOSP ---
Reason for Visit Reason for Visit: Diagnoses Adult failure to thrive (09/02/24) Subjective Subjective Patient sitting up in bed in no acute distress, reports she feels little bit better. Spoke with son who reports they are pursuing hospice. Hospice evaluated and patient will go to hospice at 10 AM Objective Data Objective Data Vital Signs: Vital Signs Temp Pulse Resp BP Pulse Ox O2 Del Method 97.7 F L 69 18 111/51 L 95 Room Air 09/03/24 10:15 09/03/24 10:15 09/03/24 10:15 09/03/24 10:15 09/03/24 15:01 09/03/24 15:01 Oxygen Delivery Method Room Air Weight: 56.8 kg Body Mass Index (BMI) 20.8 Intake & Output: Intake and Output for Last 24 Hours 09/01/24 09/02/24 09/03/24 23:59 23:59 23:59 Intake Total 1637.5 / 1637.5 1240 / 1240 Output Total 400 / 400 Balance 1637.5 / 1637.5 840 / 840 Lab / Micro Data 09/03/24 04:03 09/03/24 12:44 Labs: Laboratory Results - last 24 hr 09/02/24 16:00: WBC 12.2 H, RBC 6.12 H, Hgb 17.4 H, Hct 56.1 H, MCV 91.7, MCH 28.4, MCHC 31.0 L, RDW Std Deviation 45.9 H, RDW Coeff of Esme 13.6, Plt Count 171, MPV 11.2, Immature Gran % (Auto) 0.600, Neut % (Auto) 73.4 H, Lymph % (Auto) 18.0 L, [place] % (Auto) 6.8, Eos % (Auto) 0.6, Baso % (Auto) 0.6, Absolute Neuts (auto) 8.9 H, Absolute Lymphs (auto) 2.19, Nucleated RBC % 0, ESR 3, Sodium 158 H, Potassium 4.5, Chloride 124 H, Carbon Dioxide 33.0 H, Anion Gap 2 L, BUN 106 H*, Creatinine 2.50 H, Est GFR (MDRD) Af Amer 24 L, Est GFR (MDRD) Non-Af 20 L, BUN/Creatinine Ratio 42.4 H, Glucose 133 H, Calcium 10.3 H, Phosphorus 4.0, Magnesium 3.8 H, Ferritin 1028 H, Total Bilirubin 0.80, AST 57 H, ALT 134 H, Alkaline Phosphatase 108, Lactate Dehydrogenase 261 H, Total Creatine Kinase 114, Troponin I High Sens 27, C-React Prot Ext Range < 2.90, B-Natriuretic Peptide 17.3, Total Protein 8.5 H, Albumin 4.5, Globulin 4.0, Albumin/Globulin Ratio 1.1, Procalcitonin 0.12 H 09/02/24 16:30: Lactic Acid 2.1 H* 09/02/24 17:08: Urine Color Yellow, Urine Clarity Clear, Urine pH 5.0, Ur Specific [place] 1.020, Urine Protein Negative, Urine Glucose (UA) Normal, Urine Ketones Negative, Urine Occult Blood Negative, Urine Nitrite Negative, Urine Bilirubin Negative, Urine Urobilinogen 1 H, Ur Leukocyte Esterase 25 H, Urine RBC 0 SEEN, Urine WBC 0 SEEN, Ur Squamous Epith Cells 0-5 SEEN, Urine Bacteria 1+, Hyaline Casts 25-50 SEEN, Urine Mucus 0 SEEN 09/02/24 18:05: D-Dimer Quant (PE/DVT) Cancelled 09/02/24 18:25: D-Dimer Quant (PE/DVT) 2.13 H* 09/02/24 21:10: Lactic Acid 3.3 H* 09/03/24 03:20: Sodium 158 H, Potassium 4.0, Chloride 129 H*, Carbon Dioxide 27.0, Anion Gap 2 L, BUN 87 H, Creatinine 1.76 H, Estim Creat Clear Calc 22.63, Est GFR (MDRD) Af Amer 36 L, Est GFR (MDRD) Non-Af 30 L, BUN/Creatinine Ratio 49.4 H, Glucose 132 H, Calcium 9.1, Total Bilirubin 0.80, AST 41 H, ALT 89 H, Alkaline Phosphatase 85, Total Protein 6.2 L, Albumin 3.3, Globulin 2.9, Albumin/Globulin Ratio 1.1 09/03/24 04:03: WBC 9.1, RBC 5.38, Hgb 14.8, Hct 49.6 H, MCV 92.2, MCH 27.5, MCHC 29.8 L, RDW Std Deviation 46.0 H, RDW Coeff of Esme 13.7, Plt Count 113 L, MPV 11.6, Immature Gran % (Auto) 0.400, Neut % (Auto) 70.6 H, Lymph % (Auto) 20.6, [place] % (Auto) 6.5, Eos % (Auto) 1.3, Baso % (Auto) 0.6, Absolute Neuts (auto) 6.4, Absolute Lymphs (auto) 1.86, Nucleated RBC % 0, Lactic Acid 1.6 09/03/24 12:44: Sodium 158 H, Potassium 3.8, Chloride 129 H*, Carbon Dioxide 27.0, Anion Gap 2 L, BUN 75 H, Creatinine 1.56 H, Estim Creat Clear Calc 26.22, Est GFR (MDRD) Af Amer 41 L, Est GFR (MDRD) Non-Af 34 L, BUN/Creatinine Ratio 48.1 H, Glucose 117 H, Calcium 9.3 Radiography Diagnostic Testing: Radiology Impression Brain CT 09/02/24 15:46 IMPRESSION: There are no acute findings. Chronic involutional changes of the brain. Electronically Signed: Gerald Marie MD at 17:26 EST , Cervical Spine CT 09/02/24 15:46 IMPRESSION: Degenerative changes of the cervical spine. There are no acute findings. Electronically Signed: Gerald Marie MD at 17:27 EST , Chest X-Ray 09/02/24 15:46 IMPRESSION: There are no acute findings. Electronically Signed: Gerald Marie MD at 17:27 EST , Physical Exam Narrative General: Awake and alert, does not answer all questions appropriately HEENT: Atraumatic, normocephalic Eyes: extraocular movements grossly intact Neck: Supple Respiratory: normal respiratory effort Cardiovascular: no edema appreciated GI: nondistended Extremities: Moving all extremities Neuro: No overt focal neurological deficits Psych: Attempts to be cooperative Assessment & Plan Assessment/Plan (1) Adult failure to thrive: PLAN: Plan #Alzheimer's dementia -Patient with progressively worse dementia and failure to thrive, patient and family met with hospice and plan is for DC back to [facility] with hospice in the a.m. -Supportive care # Hypernatremia and hyperchloremia -Suspect significant dehydration -Patient started on half-normal saline, kidney function improving though still has hyper natremia and her chloremia, patient for DC to hospice in a.m., supportive care # LOLY -Suspect secondary to her poor oral intake -Baseline creatinine 0.5-0.8 and on presentation was 2.5 -Has downtrended was 1.56, supportive care #Hx chronic HFreF -Patient on Coreg -Entresto held given LOLY -Patient to go hospice, provide supportive care #DVT ppx: Heparin Sana Gamboa MD Time spent in the patient's overall evaluation, decision-making process, review of diagnostic data, adjustment of management, discussion with other providers, nursing and ancillary staff involved in patient's care documentation, 35 Minutes Charges/Coding Visit Charges Inpatient E&M: 12826 Subs Hosp L2
--- NOTE | 2024-09-03 16:05 | CASEMGMT ---
Hospice nurse spoke with patient's family. Hospice will arrange for patient to get picked up at 10a tomorrow, 09-04. DARSHAN notified charge master coordinator, physician, and RN. D/C estate planning paralegal Suly notified [place]. Plan: d/c back to [place] under intermediate level of care on [facility]. Hospice arranged for patient to get picked up tomorrow at 10a. Racheal LEON
--- NOTE | 2024-09-03 16:11 | CASEMGMT ---
Discharge Planning Updates sent to [facility] with note that pt will return tomorrow at 10a with [facility] service. Suly Bella DC Planning Asst.
--- NOTE | 2024-09-03 16:14 | CHAPLAIN ---
Type of Pastoral Visit _x__ Initial Visit ___ Follow-up Visit ___ On-call Visit ___ General Patient Visit ___ Spiritual Assessment ___ Family Conference ___ Bereavement ___ Rapid Response ___ Code Blue ___ Other (describe below) Pastoral Care Referral From ___ Patient _x__ Family ___ Nurse ___ Physician ___ Energy Conservation Engineer ___ Side Stitching Machine Operator ___ Other (describe below) Sacrament/Intervention _x__ Active listening ___ Anointing ___ Cheondoism ___ Bereavement ___ Communion ___ Maegan exploration ___ ___ Life review _x__ Prayer ___ Reconciliation ___ Sacrament of Sick _x__ Supportive presence ___ Wedding ___ Other (describe below) Pastoral Comments patient is not responding, hospice has just completed their assessment for admission; pt will be transported back to memory care unit at [facility]; three of her children and a granddaughter are in the room; offer of presence and support; family is given time to discuss their decision and to speak of the decline of the patient over the last few years; pt is of the Taoist maegan and prayer was given to support all;
[2024-09-03 16:15] VITALS: BP 125/61; PULSE 76; RESP 18; TEMP 36.3; O2SAT 96
[2024-09-03 21:18] VITALS: BP 110/60; PULSE 62; RESP 16; TEMP 36.7; O2SAT 98
[2024-09-03] MEDS: Donepezil HCl 10 MG Tablet PO (21:23)
[2024-09-03] MEDS: MELATONIN 3 MG TABLET PO (21:24)
[2024-09-04 03:15] VITALS: BP 128/62; PULSE 64; RESP 16; TEMP 36.4; O2SAT 100
[2024-09-04 06:00] VITALS: BMI 20.7
--- NOTE | 2024-09-04 07:44 | DCINST_ITS ---
Discharge Instructions Diet Discharge Diet: No restrictions DC O2, CPAP, BIPAP needs Home O2 Discharge instructions: No Follow Up Care Test Results: Test results from this visit will be discussed in further detail at your follow- up appointment, if applicable. Discharge Plan Admission Admit Date/Time: 09/02/24 17:36 Attending Provider: José Miguel Dougherty Primary Care Provider: Roseline Escobar Consulting Providers: Sia Smith; Jose Zelaya; Floresita Billingsley; Ingrid Vogel; Jemima Bright; Genna Chauhan UNDERTAKER HELPER; Beatrice Urbano; Sana Gamboa Discharge Orders/Prescriptions Prescriptions: Continued furosemide 40 mg tablet 40 mg PO DAILY Qty: 90 3RF donepezil 10 mg tablet 10 mg PO QHS potassium chloride 20 mEq tablet,ER particles/crystals 20 meq PO BID mirtazapine 7.5 mg tablet 7.5 mg PO QHS Rexulti 0.5 mg tablet 0.5 mg PO QHS carvedilol 3.125 mg tablet 3.125 mg PO BID Qty: 180 3RF sacubitril-valsartan [Entresto] 24-26 mg tablet 1 tab PO BID Qty: 180 3RF Referrals / Follow Up: Roseline Escobar MD [Primary Care Provider] - Andrea Frazier MD [Med Staff - Immigration Specialist] - Disposition Disposition (needs filled in before D/C Order can be placed): Hospice in Medical Facility
[2024-09-04 08:25] VITALS: O2SAT 96
--- NOTE | 2024-09-04 08:44 | PHA.DC.MR.R ---
Pharmacy [place] Med Reconciliation Pharmacy Service has performed discharge medication reconciliation for this patient. The patient's discharge medication list was reviewed for discrepancies and discrepancies were resolved. Medications at Discharge Home Medications furosemide 40 mg tablet 40 mg PO DAILY water pill #90 tabs 01/21/23 carvedilol 3.125 mg tablet 3.125 mg PO BID heart #180 TABLETS 03/16/24 donepezil 10 mg tablet 10 mg PO QHS dementia 03/27/24 sacubitril 24 mg-valsartan 26 mg tablet (Entresto) 1 tab PO BID heart #180 TABLETS 08/23/24 brexpiprazole 0.5 mg tablet (Rexulti) 0.5 mg PO QHS depression 09/02/24 mirtazapine 7.5 mg tablet 7.5 mg PO QHS sleep 09/02/24 potassium chloride 20 mEq tablet,extended release(part/cryst) 20 meq PO BID supplement 09/02/24
--- NOTE | 2024-09-04 08:46 | CASEMGMT ---
DARSHAN faxed patient's d/c instructions to Hospice. Hospice will be picking patient up today around 10a. Plan: D/c back to [place] under intermediate level of care with [facility]. Racheal LEON
[2024-09-04 09:10] VITALS: O2SAT 90
[2024-09-04 09:15] VITALS: BP 122/61; PULSE 62; RESP 17; TEMP 36.5; O2SAT 96
--- NOTE | 2024-09-04 09:15 | CASEMGMT ---
Discharge Planning Discharge instructions sent to [facility] with transport time. Hospice will transport patient at 10a. Suly Bella DC Planning Asst.
[2024-09-04] MEDS: Carvedilol 3.125 MG TABLET PO (09:23)
[2024-09-04] MEDS: Menthol/Lanolin/Calamine/Znox 113 GM Tube 1 APPLIC TOPICAL (09:25)
[2024-09-04] MEDS: Heparin Injection (Vial) 5,000 UNIT/ML VIAL 5000 UNIT SC (09:26)
--- NOTE | 2024-09-04 10:59 | PCM.DC.SUM ---
Providers Date of Admission: 09/02/24 Primary Care Physician: Dr. Roseline Escobar MD Consultations 09/02/24 20:20 Consult: Hospice / Palliative Care Routine Consulting Provider: [facility] Reason for Consult: Family interested in hospice potential transition EMERGENT Consult: No MD Notified: Yes Date Notified: 09/03/24 Time Notified: 10:24 Method of Notification: per social work Reason For Visit: RECENT COVID, LOLY, HyperNa/ChL, FALLS, ADULT FTT Diagnosis Discharge Diagnosis (1) Adult failure to thrive: Status: Acute Code(s): R62.7 - Adult failure to thrive Medications at Discharge Home Medications furosemide 40 mg tablet 40 mg PO DAILY water pill #90 tabs 01/21/23 carvedilol 3.125 mg tablet 3.125 mg PO BID heart #180 TABLETS 03/16/24 donepezil 10 mg tablet 10 mg PO QHS dementia 03/27/24 sacubitril 24 mg-valsartan 26 mg tablet (Entresto) 1 tab PO BID heart #180 TABLETS 08/23/24 brexpiprazole 0.5 mg tablet (Rexulti) 0.5 mg PO QHS depression 09/02/24 mirtazapine 7.5 mg tablet 7.5 mg PO QHS sleep 09/02/24 potassium chloride 20 mEq tablet,extended release(part/cryst) 20 meq PO BID supplement 09/02/24 Hospital Course Operations None Procedures None Summary of Care Provided Minutes Spent on Discharge: 33 Hospital Course: Per HPI: The patient is a 79 y/o F w/ PMHx: CKD stage II per GFR trending, Alzheimer's dementia with unclear exact extent or behavior disturbance history, HFrEF/nonischemic dilated cardiomyopathy unclear type/LV dyssynchrony status post defibrillator placement, HTN, HLD, Chronic anemia/Fe deficiency anemia who presents to the [facility] ED on 09/02/2024 with history of diagnosis of COVID 2 weeks prior progressively worsening with increased fatigue, malaise, decreased oral intake and increasing frequency of falls including the day prior falling forward out of the chair which was witnessed with no loss of consciousness however patient fell again on day of presentation with minimal ambulation secondary to her debility prompting family to bring patient in for evaluation. Patient is baseline a poor story and but mentation has been worsening recently with a significant decline in her cognition over the last month. Workup in the ED included T97.9, heart rate 81, BP 118/76, respiratory rate 16, 94% on room air with most recent repeat vitals heart rate 79, BP 129/108, respiratory rate 20, 94% on room air, CBC with WBC 12.2, hemoglobin 17.4, MCV 91.7, platelet 171 with left shift, CMP with sodium 158, chloride 124, carbon oxide 33, BUN/creatinine 106/2.50, GFR 20, glucose 133, lactic acid 2.1, calcium 10.3, T. bili 0.80, AST/LT 57/134, troponin 27, urinalysis pending upon evaluation, CT brain with no acute findings with chronic involutional changes, CT cervical spine with degenerative changes with no acute finding, chest x-ray no acute cardiopulmonary findings, EKG with paced rhythm, blood culture x 2 pending per ED. In the ED patient answered 1 L normal saline and additional 1 L run at 250 cc/h. Upon discussion with family in the ED they do note with CODE STATUS discussions interested in consulting with hospice as patient has had a significant decline since at least June 2024 and they notes she just continues to worsen. If patient does improve with hydration but is still not interested in eating they do not wish to force the issue and we will proceed with hospice evaluation regardless. Hospital Course: 1. Alzheimer's dementia/LOLY?79-year-old female presented to the hospital with worsening dementia and decreased oral intake. She was found to be hypernatremic and hyperchloremic from dehydration. She had recently recovered from COVID prior to admission at this hospital for this stay. She started on IV fluids and her LOLY improved from 2.5 down to 1.56. Baseline creatinine is around 0.7. She had does have a history of systolic CHF and is on multiple medications for this. Given her worsening dementia and her continued decline family met with hospice and plan to return to [facility] with hospice, unfortunately could not be set up yesterday so discharge was planned for today. No changes were made to her home medications, I will allow hospice to discuss with family which medications they would like to keep and discontinue once settled back at [facility]. Physical Exam Narrative General: Alert, confused, Cooperative, No apparent distress HEENT: Atraumatic, PERRLA, EOMI, Normocephalic Oral: Moist Mucosa Neck: Supple, No JVD Lungs: Clear to auscultation, Normal air movement, No rhonchi, No wheeze, No rales Cardiovascular: Regular rate, Regular Rhythm, Normal S1, Normal S2, No murmurs Abdomen: Soft, Non Tender, Non-Distended, No Hepato-splenomegaly Extremities: No edema, Capillary Refill Less than 3 Seconds Skin: No rashes, No breakdown Musculoskeletal: No Tenderness to Palpation of Joints or Extremities Neurological: No focal neurological deficits, moves all extremities Psych/Mental Status: Flat Weight / BMI Weight Weight: 124 lb 12.506 oz Body Mass Index (BMI) 20.7 ABG / Lab / Microbiology Data 09/03/24 04:03 09/03/24 12:44 Laboratory: Laboratory Results - last 24 hr 09/03/24 12:44: Sodium 158 H, Potassium 3.8, Chloride 129 H*, Carbon Dioxide 27.0, Anion Gap 2 L, BUN 75 H, Creatinine 1.56 H, Estim Creat Clear Calc 26.22, Est GFR (MDRD) Af Amer 41 L, Est GFR (MDRD) Non-Af 34 L, BUN/Creatinine Ratio 48.1 H, Glucose 117 H, Calcium 9.3 Microbiology: Microbiology 09/02/24 16:00 Blood Culture (Wb) - Anticubital Left Blood Culture - Preliminary No growth in 48 hours. 09/02/24 16:30 Blood Culture (Wb) - Arm Left Blood Culture - Preliminary No growth in 48 hours. Radiography Diagnostic Testing: Radiology Impression Venous Doppler Study 09/02/24 20:20 Interpretation Summary Deep veins of the lower extremities are bilaterally patent and compressible segmentally. There is no evidence of deep vein thrombosis on either side. Valvular competence appears intact within the proximal deep venous systems bilaterally. The great saphenous veins appear bilaterally patent and compressible segmentally. Ordering Physician: Sia Smith Performed By: Jordan Rondon RVT D/C Instructions Discharge Diet: No restrictions DC O2, CPAP, BIPAP Needs Home O2 Discharge instructions: No Meaningful Use Info Meaningful Use Meaningful Use Diagnoses (Choose all that apply): None applicable Ischemic Stroke Statin Dosing Therapy Reference: STATIN DOSE THERAPY REFERENCE: * Patients > 75 years receive moderate or high dose statin therapy. * Patients 75 years or YOUNGER should receive HIGH intensity statin dose unless contraindicated. You will be required to document reason for non-treatment if statin daily dose does not meet guidelines. HIGH DOSE STATIN THERAPY DAILY Atorvastatin > than or = to 40 mg Rosuvastatin > than or = to 20 mg Amlodipine + Atorvastatin > than or = to 2.5/40 mg Ezetimibe + Simvastatin 10/80 mg Simvastatin 80mg Discharge Plan Admission Admit Date/Time: 09/02/24 17:36 Attending Provider: José Miguel Dougherty Primary Care Provider: Roseline Escobar Consulting Providers: Sia Smith; Jose Zelaya; Floresita Billingsley; Ingrid Vogel; Jemima Bright; Genna Chauhan ADHESIVE SPRAYER; Beatrice Urbano; Sana Gamboa Discharge Orders/Prescriptions Prescriptions: Continued furosemide 40 mg tablet 40 mg PO DAILY Qty: 90 3RF donepezil 10 mg tablet 10 mg PO QHS potassium chloride 20 mEq tablet,ER particles/crystals 20 meq PO BID mirtazapine 7.5 mg tablet 7.5 mg PO QHS Rexulti 0.5 mg tablet 0.5 mg PO QHS carvedilol 3.125 mg tablet 3.125 mg PO BID Qty: 180 3RF sacubitril-valsartan [Entresto] 24-26 mg tablet 1 tab PO BID Qty: 180 3RF Referrals / Follow Up: Roseline Escobar MD [Primary Care Provider] - Andrea Frazier MD [Med Staff - Cost Consultant] - Disposition Disposition (needs filled in before D/C Order can be placed): Hospice in Medical Facility Charges/Coding Visit Charges Inpatient E&M: 34790 Disch Hosp >30min
== END 2024-09-04 10:09 | disposition hospice, inpatient (51) | DRG 683 ==
LOC: ED 17:41 → PCU 19:00
PROVIDERS: Hospitalist; Internal Medicine; Admitting Provider Family Medicine; Emergency Provider Emergency Medicine; PCP Internal Medicine; Visit Provider Family Medicine
DX: N17.9 Acute kidney failure, unspecified (principal); G93.40 Encephalopathy, unspecified; I13.0 Hypertensive heart and chronic kidney disease with heart failure and stage 1 through stage 4 chronic kidney disease, or unspecified chronic kidney disease; F02.818 Dementia in other diseases classified elsewhere, unspecified severity, with other behavioral disturbance; E87.0 Hyperosmolality and hypernatremia; I50.22 Chronic systolic (congestive) heart failure; I42.0 Dilated cardiomyopathy; F02.84 Dementia in other diseases classified elsewhere, unspecified severity, with anxiety; E87.1 Hypo-osmolality and hyponatremia; Z51.5 Encounter for palliative care; D50.9 Iron deficiency anemia, unspecified; F32.A Depression, unspecified; E86.0 Dehydration; G30.9 Alzheimer's disease, unspecified; N18.2 Chronic kidney disease, stage 2 (mild); E78.5 Hyperlipidemia, unspecified; E87.8 Other disorders of electrolyte and fluid balance, not elsewhere classified; F41.9 Anxiety disorder, unspecified; I44.7 Left bundle-branch block, unspecified; R62.7 Adult failure to thrive; Z66 Do not resuscitate; Z86.16 Personal history of COVID-19; Z68.20 Body mass index [BMI] 20.0-20.9, adult; R29.6 Repeated falls
CPT/HCPCS: 36415; 70450; 71045; 72125; 80048; 80053; 81001; 82550; 82728; 83605; 83615; 83735; 83880; 84100; 84145; 84484; 85025; 85379; 85652; 86140; 87040; 93005; 93970; 94668; 97162; 97166; 99285; A4216